=== PATIENT | female | born 1980 | race Two or more races ===

== ENCOUNTER 2024-03-11 10:54 | Emergency (ER) | payer MEDICAID, SELFPAY ==
[2024-03-11 11:05] VITALS: BMI 29.0
[2024-03-11 11:06] VITALS: BP 185/114; PULSE 110; RESP 25; TEMP 36.5; O2SAT 95
--- NOTE | 2024-03-11 11:26 | PD.EDRME ---
Rapid Medical Screening Exam RME Arrival date/time: 03/11/24 10:54 44-year-old female presents emergency department complaint of nausea vomiting abdominal pain patient reports history of gastroparesis Chief Complaint: Abdominal Pain Vital signs: Vital Signs Temperature 97.7 F 03/11/24 11:06 Pulse Rate 110 H 03/11/24 11:06 Respiratory Rate 25 H 03/11/24 11:06 Blood Pressure 185/114 H 03/11/24 11:06 Pulse Oximetry (%) 95 03/11/24 11:06 Oxygen Delivery Method Room Air 03/11/24 11:06
[2024-03-11] MEDS: METOCLOPRAMIDE INJ 5 MG/ML VIAL 2 ML 10 MG IM (11:29)
[2024-03-11 12:49] LABS: Basophils % (Auto) 0 % (0-2.5); Eosinophils # (Auto) 0.1 Thou/mm3 (0.0-0.5); Eosinophils % (Auto) 1 % (0-10); Hematocrit 31.3 % (36.0-46.0); Hemoglobin 10.6 g/dL (12.0-16.0); Immature Granulocytes % (Auto) 0 % (0-0); Immature Granulocytes Auto 0.04 Thou/mm3 (0.00-0.00); Lymphocytes # (Auto) 1.1 Thou/mm3 (1.0-4.8); Lymphocytes % (Auto) 12 % (10-50); Mean Corpuscular HGB Conc 33.9 g/dl (31.0-37.0); Mean Corpuscular Hemoglobin 25.7 pg (25.0-35.0); Mean Corpuscular Volume 76 fL (80-100); Monocytes # (Auto) 0.5 Thou/mm3 (0.0-0.8); Monocytes % (Auto) 5 % (0-12); Neutrophils # (Auto) 7.7 Thou/mm3 (1.8-7.7); Neutrophils % (Auto) 82 % (37-80); Nucleated Red Blood Cell % 0 /100 WBC (0); Platelet Count 301 Thou/mm3 (140-440); RDW Standard Deviation 38.5 fL (36.4-46.3); Red Blood Count 4.12 Miln/mm3 (4.00-5.20); White Blood Count 9.4 Thou/mm3 (3.6-11.0)
[2024-03-11 13:16] LABS: Alanine Aminotransferase 21 U/L (10-49); Alkaline Phosphatase 235 U/L (46-116); Anion Gap 10 (7-16); Aspartate Amino Transferase 19 U/L (0-34); BUN/Creatinine Ratio 13 Ratio (12-20); Bilirubin,Total 0.3 mg/dL (0.3-1.2); Blood Urea Nitrogen 26 mg/dL (9-23); Calcium 9.6 mg/dL (8.3-10.6); Calcium (Corrected) 9.6 mg/dL (8.5-10.1); Carbon Dioxide 22.6 mMol/L (20.0-31.0); Chloride 98 mMol/L (98-107); Estimated Creatinine Clearance 40.8 mL/min (>60); Globulin 4.2 gm/dL (2.3-3.5); Glucose 202 mg/dL (74-106); Lipase 70 U/L (12-53); Osmolality,Calculated 273 (275-295); Potassium 5.2 mMol/L (3.4-5.1); Sodium 131 mMol/L (136-145); Total Protein 8.2 gm/dL (5.7-8.2); eGFR 31 See Note
--- NOTE | 2024-03-11 15:47 | PC.NURSE ---
CALLED PT NO ANSWER
--- NOTE | 2024-03-11 16:05 | PC.NURSE ---
CALLED FROM [facility] AND NO ANSWER. PT NOT FOUND INSODE THE E.D. OR OUTSIDE
== END 2024-03-11 16:08 | disposition left against medical advice (07) ==
LOC: SERX 11:39
PROVIDERS: Nurse Practitioner Primary Care; Emergency Provider Emergency Medicine
DX: R10.9 Unspecified abdominal pain (principal); Z53.29 Procedure and treatment not carried out because of patient's decision for other reasons
CPT/HCPCS: 36415; 80053; 80307; 81001; 81025; 83690; 85025; 99281; J2765

== ENCOUNTER 2024-04-01 09:26 | Emergency (ER) | payer MEDICAID, SELFPAY ==
[2024-04-01] VITALS (8 sets, daily range): BP systolic 103–207; BP diastolic 69–130; PULSE 75–79; RESP 17–20; TEMP 36.3–36.7; O2SAT 95–100; BMI 26.2
--- NOTE | 2024-04-01 10:00 | PD.EDRME ---
Rapid Medical Screening Exam RME Arrival date/time: 04/01/24 09:26 44-year-old female presents the emergency department complains of nausea vomiting and abdominal pain patient ports history of gastroparesis hypertension and diabetes Chief Complaint: Nausea/Vomiting/Diarrhea Time Seen by Provider: 04/01/24 09:27 Vital signs: Vital Signs Temperature 97.6 F 04/01/24 09:42 Pulse Rate 75 04/01/24 09:42 Respiratory Rate 20 04/01/24 09:42 Blood Pressure 150/96 H 04/01/24 09:42 Pulse Oximetry (%) 95 04/01/24 09:42 Oxygen Delivery Method Room Air 04/01/24 09:42
[2024-04-01 10:31] LABS: Collection Type, Urine Clean Catch; RBC,Urine 0 /hpf (0-3); Squamous Epithelial Cell,Urine 0 /hpf (0-5); WBC,Urine 0 /hpf (0-5)
[2024-04-01 10:33] LABS: Basophils % (Auto) 0 % (0-2.5); Eosinophils # (Auto) 0.1 Thou/mm3 (0.0-0.5); Eosinophils % (Auto) 1 % (0-10); Hemoglobin 13.5 g/dL (12.0-16.0); Immature Granulocytes % (Auto) 1 % (0-0); Immature Granulocytes Auto 0.04 Thou/mm3 (0.00-0.00); Lymphocytes # (Auto) 1.7 Thou/mm3 (1.0-4.8); Lymphocytes % (Auto) 23 % (10-50); Mean Corpuscular HGB Conc 32.9 g/dl (31.0-37.0); Mean Corpuscular Hemoglobin 26.4 pg (25.0-35.0); Mean Corpuscular Volume 80 fL (80-100); Monocytes # (Auto) 0.5 Thou/mm3 (0.0-0.8); Monocytes % (Auto) 6 % (0-12); Neutrophils % (Auto) 68 % (37-80); Nucleated Red Blood Cell % 0 /100 WBC (0); Platelet Count 184 Thou/mm3 (140-440); RDW Standard Deviation 44.5 fL (36.4-46.3); Red Blood Count 5.11 Miln/mm3 (4.00-5.20); White Blood Count 7.3 Thou/mm3 (3.6-11.0)
[2024-04-01 10:36] LABS: HCG Qualitative,Urine Negative
[2024-04-01 10:48] LABS: Amphetamine/Methamp Scrn,U Positive (Negative); Barbiturate Screen,Urine Negative (Negative); Benzodiazepines Screen,Urine Negative (Negative); Benzoylecgonine Screen, Ur Negative (Negative); Fentanyl Screen,Urine Negative (Negative); Opiate Screen,Urine Negative (Negative); THC Screen,Urine Positive (Negative)
[2024-04-01 10:49] LABS: Bilirubin,Urine Negative (Negative); Blood,Urine Trace (Negative); Clarity,Urine Clear (Clear/Hazy); Color,Urine Lt-Yellow (Lt Yel-Yel); Glucose, Urine 3+ (Negative); Ketones,Urine Negative (Negative); Leukocyte Esterase,Urine Positive (Negative); Nitrite,Urine Negative (Negative); Protein,Urine 3+ (Neg - Trace); Specific Gravity,Urine 1.017 (1.001-1.035); Urobilinogen,Urine Negative mg/dL (0.0-1.0)
--- NOTE | 2024-04-01 10:50 | PC.NURSE ---
DR. ORTIZ AT BEDSIDE ASSESSING PT.
[2024-04-01 10:51] LABS: Culture Indicated,Urine Yes
[2024-04-01] MEDS: ONDANSETRON INJ 2 MG/ML INJ 2 ML 4 MG IV (10:52)
[2024-04-01] MEDS: MORPHINE SULF INJ 10 MG/ML VIAL 2 MG IVP (10:59)
--- NOTE | 2024-04-01 10:59 | XR_ITS ---
Examination: CT abdomen and pelvis without contrast. Coronal 3-D reconstructions. Sagittal 2-D reconstructions. Date and time of exam:April 01, 2024 at 1231 hours INDICATIONS: Severe abdominal pain with nausea vomiting today CTDI: vol (mGy): 9.07 DLP: (mGycm): 573 Technique: Axial images of the abdomen have been obtained, 3 mm slice thickness Intravenous contrast material has not been administered. Low dose protocols were performed. One or more of the following dose reduction techniques were used; automated exposure control, adjustment of the mA and/or KV according to patient size, use of iterative reconstruction technique. Findings: No focal liver or splenic lesions Absent gallbladder No pancreatic mass Significant perinephric stranding, atrophic left kidney No renal or ureteral calculi, no hydronephrosis Aorta normal size No pericecal inflammatory change No bowel obstruction Scattered colonic diverticulosis Retroverted atrophic uterus No adnexal mass Urinary bladder wall thickening up to 8 mm Advanced degenerative disc disease L5-S1 IMPRESSION: Prominent perinephric stranding, consider urinary tract infection, nephritis No CT findings of appendicitis bowel obstruction or diverticulitis Cystitis pattern
[2024-04-01] MEDS: LABETALOL INJ 5 MG/ML VIAL 20 ML 10 MG IVP ×2 (11:00→12:23)
--- NOTE | 2024-04-01 11:04 | EDNOTE_ITS ---
ED General RME/HPI General Chief complaint: Nausea/Vomiting/Diarrhea Stated complaint: BODY ACHES, GASTROPERESIS FLARE UP Time Seen by Provider: 04/01/24 09:27 Arrival date/time: 04/01/24 09:26 RME / HPI RME / HPI narrative: KILLIANhibrittany complaint: 04/01/24 09:26 44-year-old female presents the emergency department complains of nausea vomiting and abdominal pain patient ports history of gastroparesis hypertension and diabetes HPI: Patient is a 44-year-old female with past medical history of type II IDDM, severe gastroparesis, essential hypertension, anxiety/depression, CKD stage III and substance use disorder, who presented to the ED with worsening abdominal pain, with associated nausea and vomiting x 5 episodes, as well as semisolid diarrhea x 4 episodes since last night. She also complains of having subjective fevers and chills at home. She decided to come to the ED due to worsening abdominal pain, she describes the pain as dull and achy and diffuse, not localized. Her vomitus and stools were nonbloody, nonbilious. She has never experienced the symptoms in the past. She does have an appetite, and endorses previously smoking marijuana, and now consuming edibles to maintain her appetite. She has significant history of gastroparesis, with multiple hospitalizations for the same. She was diagnosed by colonoscopy/biopsy by die keeper Dr. Arrington > 2 years ago. Patient was previously also on Ozempic which she worsened her GI symptoms, and was taken off of it about a year ago. Medication list: Lisinopril 40 mg daily Insulin LA only Metoclopramide for gastroparesis Seroquel at bedtime for anxiety/depression Allergies: Walnuts?angioedema Social history: Tobacco?Use:?Denies ETOH?Use:?Denies Drug?Note:?Endorses smoking marijuana previously, but however has not transitioned to oral edibles to help with appetite Social?History?Note:?Lives?with?home, independent ADLs Family history: Denies any family history of sudden cardiac , stroke or cancers. L Related Data Home Medications ?Medication ?Instructions ?Recorded ?Confirmed lisinopril 20 mg tablet 20 mg PO QDAY 07/20/17 09/19/19 metformin 1,000 mg tablet 1,000 mg PO BID 07/20/17 09/19/19 quetiapine 25 mg tablet (Seroquel) 25 mg PO TID 07/20/17 09/19/19 Previous Rx's ?Medication ?Instructions ?Recorded ondansetron HCl 4 mg tablet 4 mg PO Q8H #20 tabs 09/20/19 (Zofran) ciprofloxacin HCl 500 mg tablet 500 mg PO BID 6 days #12 tabs 04/01/24 (Cipro) metoclopramide HCl 10 mg tablet 10 mg PO BID PRN nausea and 04/01/24 vomiting #30 tabs Allergies Allergy/AdvReac Type Severity Reaction Status Date / Time walnut Allergy Severe Swelling Verified 04/01/24 09:36 of Lip/Tongue/Throat Review of Systems Review of Systems Narrative Review of Systems: GENERAL: fevers/chills HEENT: Denies headache or visual/hearing changes. Denies nasal discharge. NEURO: Denies unusual weakness or difficulty speaking. CARDIO: Denies chest pain or palpitations. PULM: Denies SOB, coughing, or wheezing. GI: diffuse abdominal pain, N/V x5 episodes, diarrhea x4 episodes. URO: Denies burning/itching/pain/urinary changes. PLY CUTTER: Denies menstrual changes, hot flashes. MSK/EXT/SKIN: Denies joint/skeletal/muscle pain, issues/changes in upper or lower extremities, itchiness, or superficial pain. PSYCH: Cooperative, pleasant mood & affect. The rest of the review of systems is otherwise negative. ED Exam Narrative Physical exam: Constitutional Alert, oriented x4, nauseous HEENT Vision grossly intact. Patent nares. Trachea midline. Respiratory Chest normal on inspection and clear to auscultation bilaterally. Cardiovascular S1 and S2 audible, RRR. No murmurs or carotid bruit. No gross JVD. Abdominal Soft, diffusely tender to palpation in all quadrants. BS + Genitourinary No bladder tenderness, no flank pain. Normal to palpation. Musculoskeletal Extremities tone within normal limits. No LE edema. Neurological CN II - XII grossly intact. Extremity motor and sensation grossly intact. Skin Warm, dry and intact. No apparent lesions. Psychiatric Patient has a good affect, is cooperative. Course Quality Measures none Orders Category Date Time Status CT abdomen pelvis wo con Stat Exams 04/01/24 10:59 Completed CBC Stat Lab 04/01/24 10:13 Completed Comprehensive Metabolic Panel Stat Lab 04/01/24 11:20 Completed Drug Screen,Urine Stat Lab 04/01/24 10:24 Completed HCG Qualitative,Urine Stat Lab 04/01/24 10:24 Completed Lipase Stat Lab 04/01/24 11:20 Completed UA, C/S IF [Urinalysis, C/S if Indicated] Stat Lab 04/01/24 10:24 Completed Urine Culture Stat Lab 04/01/24 10:24 Received Labetalol IV [Trandate IV] Med 04/01/24 10:55 Discontinued 10 mg IVP X1 ONE Labetalol IV [Trandate IV] Med 04/01/24 11:32 Discontinued 10 mg IVP X1 ONE Lisinopril [Prinivil] Med 04/01/24 14:01 Discontinued 40 mg PO X1 ONE Morphine Inj Med 04/01/24 10:55 Discontinued 2 mg IVP X1 ONE Ondansetron Inj [Zofran Inj] Med 04/01/24 09:59 Discontinued 4 mg IV X1 ONE Sodium Chloride 0.9% 1000 ml [Ns] 1,000 ml Med 04/01/24 09:59 Discontinued IV 999 mls/hr amLODIPine BESYLATE [Norvasc] Med 04/01/24 14:01 Discontinued 10 mg PO X1 ONE Vital Signs Vital signs: Vital Signs Temperature 97.6 F 04/01/24 09:42 Pulse Rate 75 04/01/24 09:42 Respiratory Rate 20 04/01/24 09:42 Blood Pressure 150/96 H 04/01/24 09:42 Pulse Oximetry (%) 95 04/01/24 09:42 Oxygen Delivery Method Room Air 04/01/24 09:42 [facility] Patient data External records reviewed:: [facility] previous records and None Clinical information provided by:: patient Social determinants that could affect healthcare access:: substance use Patient has the following chronic illnesses:: type II IDDM, severe gastroparesis, essential hypertension, anxiety/depression, CKD stage III and substance use disorder How is presenting disease/condition affected by chronic disease/condition?: e xacerbated by Evaluation data The following diagnostics were reviewed and interpreted by me:: lab results, radiology exam(s) and EKG tracing(s) Lab and/or radiology exams considered but not ordered:: GB US Interpretation Summary: Patient is a 44-year-old female who presented with diffuse abdominal pain, episodes of vomiting and 4 episodes of diarrhea, with subjective fevers at home. She was found to have hypertensive urgency in the ER, with systolic BP > 200. She was given labetalol 10 mg x 2, morphine 2 mg x 1 for pain and Zofran 4 mg x 1 for nausea. Diagnostics: CT abdomen pelvis was negative for any acute findings. Patient was noted to have some areas of colonic diverticulosis, with cystitis pattern perinephric stranding consistent with UTI. Urinalysis negative at this time, sterile pyuria. Patient just completed a 5- day course of Keflex for UTI. Likely viral gastroenteritis, now resolved. No documented episodes of vomiting or diarrhea in ER. Pain completely resolved and CT imaging negative for any findings. Medications Medications considered but not ordered:: Dilaudid Medication administrations:: Medication Administration History Discontinued Medications Amlodipine Besylate (Amlodipine Besylate 5 Mg Tablet) 10 mg PO X1 ONE Stop: 04/01/24 14:02 Sodium Chloride (Ns) 1,000 mls @ 999 mls/hr IV .Q1H1M ONE Stop: 04/01/24 10:59 Last Admin: 04/01/24 10:54 Dose: Not Given Documented By: MAGNUS Non-Admin Reason: Cancelled by Provider Labetalol HCl (Labetalol Inj 5 Mg/Ml Vial 20 Ml) 10 mg IVP X1 ONE Stop: 04/01/24 10:56 Last Admin: 04/01/24 11:00 Dose: 10 mg Documented By: Labetalol HCl (Labetalol Inj 5 Mg/Ml Vial 20 Ml) 10 mg IVP X1 ONE Stop: 04/01/24 11:33 Last Admin: 04/01/24 12:23 Dose: 10 mg Documented By: Lisinopril (Lisinopril 20 Mg Tablet) 40 mg PO X1 ONE Stop: 04/01/24 14:02 Morphine Sulfate (Morphine Sulf Inj 10 Mg/Ml Vial) 2 mg IVP X1 ONE Stop: 04/01/24 10:56 Last Admin: 04/01/24 10:59 Dose: 2 mg Documented By: MAGNUS Ondansetron HCl (Ondansetron Inj 2 Mg/Ml Inj 2 Ml) 4 mg IV X1 ONE; Protocol Stop: 04/01/24 10:00 Last Admin: 04/01/24 10:52 Dose: 4 mg Documented By: MAGNUS Continue Consultations Consultation(s) initiated? (list below): No Consultation #1 (Physician, Specialty, Details): None Diagnosis Differential Diagnosis ED Complaint MDM: Diverticulitis, pancreatitis Most likely diagnosis given after review of the tests above:: Gastroenteritis - resolved Admission Indicated Admission indicated?: not indicated Explain why admission is indicated or not indicated:: Likely viral gastroenteritis, now resolved. No documented episodes of vomiting or diarrhea in ER. Pain completely resolved and CT imaging negative for any findings. Admission Request Was there a request for admission?: No Disposition Plan Disposition Plan: Discharge Discharge Attestation Discharge Attestation: The patient and all family members were given an opportunity to ask questions and understood the discharge instructions. Discharge instructions specifically effects, indications for sooner follow up or return to the emergency department, and the expected course of current diagnosis. Patient condition: Stable Medical Decision Making MDM Narrative MDM Narrative: Patient is a 44-year-old female who presented with diffuse abdominal pain, episodes of vomiting and 4 episodes of diarrhea, with subjective fevers at home. She was found to have hypertensive urgency in the ER, with systolic BP > 200. She was given labetalol 10 mg x 2, morphine 2 mg x 1 for pain and Zofran 4 mg x 1 for nausea. Diagnostics: CT abdomen pelvis was negative for any acute findings. Patient was noted to have some areas of colonic diverticulosis, with cystitis pattern perinephric stranding consistent with UTI. Urinalysis negative at this time, sterile pyuria. Patient just completed a 5- day course of Keflex for UTI. Likely viral gastroenteritis, now resolved. No documented episodes of vomiting or diarrhea in ER. Pain completely resolved and CT imaging negative for any findings. Discharge plan: Will increase dose of metoclopramide from 5 mg to 10 mg daily for nausea and gastroparesis Will discharge with ciprofloxacin x 5 days more Clear instructions to return to ED if symptoms worsen Follow-up with PCP within 1 week Plan of care discussed with attending Dr Kidd - Kwasi Barry M.D. PGY2 Differential Diagnosis Differential Diagnosis: Diverticulitis, pancreatitis Lab Data 04/01/24 10:13 04/01/24 11:20 Labs: Lab Results 04/01/24 04/01/24 04/01/24 Range/Units 10:13 10:24 11:20 WBC 7.3 (3.6-11.0) Thou/mm3 RBC 5.11 (4.00-5.20) Miln/mm3 Hgb 13.5 (12.0-16.0) g/dL Hct 41.0 (36.0-46.0) % MCV 80 (80-100) fL MCH 26.4 (25.0-35.0) pg MCHC 32.9 (31.0-37.0) g/dl RDW Std Deviation 44.5 (36.4-46.3) fL Plt Count 184 D (140-440) Thou/mm3 Neut % (Auto) 68 (37-80) % Lymph % (Auto) 23 (10-50) % [place] % (Auto) 6 (0-12) % Eos % (Auto) 1 (0-10) % Baso % (Auto) 0 (0-2.5) % Neut # (Auto) 5.0 (1.8-7.7) Thou/mm3 Lymph # (Auto) 1.7 (1.0-4.8) Thou/mm3 [place] # (Auto) 0.5 (0.0-0.8) Thou/mm3 Eos # (Auto) 0.1 (0.0-0.5) Thou/mm3 Baso # (Auto) 0.0 (0.0-0.2) Thou/mm3 Immature Gran # (Auto) 0.04 H (0.00-0.00) Thou/mm3 Absolute Nucleated RBC 0.00 (0.00-0.00) Thou/mm3 Immature Gran % 1 H (0-0) % Nucleated RBC % 0 (0) /100 WBC Sodium 133 L (136-145) mMol/L Potassium 5.5 H (3.4-5.1) mMol/L Chloride 102 (98-107) mMol/L Carbon Dioxide 26.4 (20.0-31.0) mMol/L Anion Gap 5 L (7-16) BUN 35 H (9-23) mg/dL Creatinine 2.0 H (0.6-1.3) mg/dL Estim Creat Clear Calc 38.9 L (>60) mL/min eGFR 31 L (60 - ) See Note BUN/Creatinine Ratio 18 (12-20) Ratio Glucose 207 H (74-106) mg/dL Calculated Osmolality 280 (275-295) Calcium 9.9 (8.3-10.6) mg/dL Corrected Calcium 9.9 (8.5-10.1) mg/dL Total Bilirubin 0.2 L (0.3-1.2) mg/dL AST 29 (0-34) U/L ALT 17 (10-49) U/L Alkaline Phosphatase 167 H (46-116) U/L Total Protein 8.3 H (5.7-8.2) gm/dL Albumin 4.1 (3.5-5.0) gm/dL Globulin 4.2 H (2.3-3.5) gm/dL Albumin/Globulin Ratio 1.0 L (1.2-2.2) Lipase 113 H (12-53) U/L Ur Collection Type Clean Catch Urine Color Lt-Yellow (Lt Yel-Yel) Urine Clarity Clear (Clear/Hazy) Urine pH 7.0 (5.0-7.0) Ur Specific [place] 1.017 (1.001-1.035) Urine Protein 3+ A (Neg - Trace) Urine Glucose (UA) 3+ A (Negative) Urine Ketones Negative (Negative) Urine Blood Trace (Negative) Urine Nitrite Negative (Negative) Urine Bilirubin Negative (Negative) Urine Urobilinogen (Auto) Negative (0.0-1.0) mg/dL Ur Leukocyte Esterase Positive (Negative) Urine RBC 0 (0-3) /hpf Urine WBC 0 (0-5) /hpf Ur Squamous Epith Cells 0 (0-5) /hpf Urine Bacteria None (None) Ur Culture Indicated? Yes Urine HCG, Qual Negative Urine Opiates Screen Negative (Negative) Urine Fentanyl Screen Negative (Negative) Ur Barbiturates Screen Negative (Negative) U Amphetamin/Meth Scrn Positive A (Negative) U Benzodiazepines Scrn Negative (Negative) U Cocaine Metab Screen Negative (Negative) U Marijuana (THC) Screen Positive A (Negative) Discharge Plan Plan Patient Disposition: HOME (Self Care) Prescriptions/Referrals Prescriptions/Med Rec: New ciprofloxacin HCl [Cipro] 500 mg tablet 500 mg PO BID 6 Days Qty: 12 0RF metoclopramide HCl 10 mg tablet 10 mg PO BID PRN (Reason: nausea and vomiting) Qty: 30 0RF No Action quetiapine [Seroquel] 25 mg Tablet 25 mg PO TID lisinopril 20 mg Tablet 20 mg PO QDAY metformin 1,000 mg Tablet 1,000 mg PO BID ondansetron HCl [Zofran] 4 mg tablet 4 mg PO Q8H Qty: 20 0RF Referrals: Irma Ponce PA-C [Primary Care Provider] - In 1 week Problem List Clinical Impression: Urinary tract infectious disease, Gastroenteritis Patient/Caregiver Discharge Instructions Other Activity Instructions:: Discharge plan: Will increase dose of metoclopramide from 5 mg to 10 mg daily for nausea and gastroparesis Will discharge with ciprofloxacin x 5 days more Clear instructions to return to ED if symptoms worsen Follow-up with PCP within 1 week Print Language: Tunisian Stand Alone Forms: Emily Award Info., Patient Portal Info Letter
[2024-04-01 11:50] LABS: Alanine Aminotransferase 17 U/L (10-49); Albumin, Serum 4.1 gm/dL (3.5-5.0); Alkaline Phosphatase 167 U/L (46-116); Anion Gap 5 (7-16); Aspartate Amino Transferase 29 U/L (0-34); BUN/Creatinine Ratio 18 Ratio (12-20); Bilirubin,Total 0.2 mg/dL (0.3-1.2); Blood Urea Nitrogen 35 mg/dL (9-23); Calcium 9.9 mg/dL (8.3-10.6); Calcium (Corrected) 9.9 mg/dL (8.5-10.1); Carbon Dioxide 26.4 mMol/L (20.0-31.0); Chloride 102 mMol/L (98-107); Estimated Creatinine Clearance 38.9 mL/min (>60); Globulin 4.2 gm/dL (2.3-3.5); Glucose 207 mg/dL (74-106); Lipase 113 U/L (12-53); Osmolality,Calculated 280 (275-295); Potassium 5.5 mMol/L (3.4-5.1); Sodium 133 mMol/L (136-145); Total Protein 8.3 gm/dL (5.7-8.2); eGFR 31 See Note
== END 2024-04-01 14:38 | disposition home or self-care (01) ==
PROVIDERS: Nurse Practitioner Primary Care; Emergency Provider Emergency Medicine; PCP Physician Assistant
DX: K52.9 Noninfective gastroenteritis and colitis, unspecified (principal); N39.0 Urinary tract infection, site not specified; E11.43 Type 2 diabetes mellitus with diabetic autonomic (poly)neuropathy; K31.84 Gastroparesis; I12.9 Hypertensive chronic kidney disease with stage 1 through stage 4 chronic kidney disease, or unspecified chronic kidney disease; N18.30 Chronic kidney disease, stage 3 unspecified; E11.22 Type 2 diabetes mellitus with diabetic chronic kidney disease
CPT/HCPCS: 36415; 74176; 80053; 80307; 81001; 81025; 83690; 85025; 87077; 87086; 87186; 96374; 96375; 96376; 99284; J2270; J2405; J3490; J1920

== ENCOUNTER 2024-05-22 15:54 | Inpatient (IN) | payer MEDICAID, SELFPAY ==
--- NOTE | 2024-05-22 16:38 | XR_ITS ---
Examination: CT abdomen and pelvis without contrast. Coronal 3-D reconstructions. Sagittal 2-D reconstructions. Date and time of exam:May 22, 2024 at 1848 hours Comparison April 01, 2024 INDICATIONS: Severe pelvic pain today CTDI: vol (mGy): 10.9 DLP: (mGycm): 726 Technique: Axial images of the abdomen have been obtained, 3 mm slice thickness Intravenous contrast material has not been administered. Low dose protocols were performed. One or more of the following dose reduction techniques were used; automated exposure control, adjustment of the mA and/or KV according to patient size, use of iterative reconstruction technique. Findings: No focal liver or splenic lesion Absent gallbladder No extra hepatic biliary tract dilatation No pancreatic mass Atrophic significantly scarred left kidney Prominent bilateral perinephric stranding Multiple bilateral 1 mm calculi No hydronephrosis or ureteral calculi No pericecal inflammatory change No bowel obstruction No diverticulitis No uterine mass Multiple air densities in the urinary bladder, marked abnormal thickening of the urinary bladder up to 15 mm Advanced degenerative disc disease L5-S1 IMPRESSION: Significantly scarred left kidney Very prominent bilateral perinephric stranding, consistent with bilateral acute pyelonephritis Tiny bilateral nonobstructing renal calculi 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
--- NOTE | 2024-05-22 16:38 | PD.EDRME ---
Rapid Medical Screening Exam RME Arrival date/time: 05/22/24 15:54 44-year-old female with a history of type 2 diabetes, hypertension, chronic kidney disease, presents to the emergency room with right-sided flank pain that radiates down to the right lower quadrant that began at 4 AM this morning. Patient denies any vomiting. Chief Complaint: Abdominal Pain Time Seen by Provider: 05/22/24 16:21 Vital signs reviewed by provider: Yes
[2024-05-22 16:44] VITALS: BP 121/82; PULSE 112; RESP 18; TEMP 37; O2SAT 98; BMI 28.1
[2024-05-22] MEDS: HYDROcodone/APAP 5/325 TABLET 1 TAB PO (16:46)
[2024-05-22] MEDS: ONDANSETRON ODT 4 MG TABRAP PO (16:46)
[2024-05-22 17:27] LABS: Collection Type, Urine Clean Catch
[2024-05-22 17:31] LABS: Basophils % (Auto) 0 % (0-2.5); Eosinophils # (Auto) 0.2 Thou/mm3 (0.0-0.5); Eosinophils % (Auto) 1 % (0-10); Hematocrit 31.2 % (36.0-46.0); Hemoglobin 10.4 g/dL (12.0-16.0); Immature Granulocytes % (Auto) 1 % (0-0); Immature Granulocytes Auto 0.23 Thou/mm3 (0.00-0.00); Lymphocytes # (Auto) 1.5 Thou/mm3 (1.0-4.8); Lymphocytes % (Auto) 7 % (10-50); Mean Corpuscular HGB Conc 33.3 g/dl (31.0-37.0); Mean Corpuscular Hemoglobin 26.3 pg (25.0-35.0); Mean Corpuscular Volume 79 fL (80-100); Monocytes # (Auto) 0.7 Thou/mm3 (0.0-0.8); Monocytes % (Auto) 3 % (0-12); Neutrophils # (Auto) 18.7 Thou/mm3 (1.8-7.7); Neutrophils % (Auto) 88 % (37-80); Nucleated Red Blood Cell % 0 /100 WBC (0); Platelet Count 312 Thou/mm3 (140-440); RDW Standard Deviation 39.4 fL (36.4-46.3); Red Blood Count 3.95 Miln/mm3 (4.00-5.20); White Blood Count 21.4 Thou/mm3 (3.6-11.0)
[2024-05-22 17:38] LABS: HCG Qualitative,Urine Negative
[2024-05-22 17:53] LABS: Bacteria,Urine 3+; Bilirubin,Urine Negative (Negative); Blood,Urine 1+ (Negative); Clarity,Urine Turbid (Clear/Hazy); Color,Urine Lt-Yellow (Lt Yel-Yel); Glucose, Urine 3+ (Negative); Ketones,Urine Negative (Negative); Leukocyte Esterase,Urine Positive (Negative); Nitrite,Urine Negative (Negative); Protein,Urine 3+ (Neg - Trace); RBC,Urine 6 /hpf (0-3); Specific Gravity,Urine 1.017 (1.001-1.035); Squamous Epithelial Cell,Urine 7 /hpf (0-5); Urobilinogen,Urine Negative mg/dL (0.0-1.0); WBC,Urine 174 /hpf (0-5)
[2024-05-22 18:04] LABS: Alanine Aminotransferase 24 U/L (10-49); Albumin, Serum 4.1 gm/dL (3.5-5.0); Albumin/Globulin Ratio 0.9 (1.2-2.2); Alkaline Phosphatase 249 U/L (46-116); Anion Gap 9 (7-16); Aspartate Amino Transferase 26 U/L (0-34); BUN/Creatinine Ratio 16 Ratio (12-20); Bilirubin,Total 0.3 mg/dL (0.3-1.2); Blood Urea Nitrogen 42 mg/dL (9-23); Calcium 9.5 mg/dL (8.3-10.6); Calcium (Corrected) 9.5 mg/dL (8.5-10.1); Carbon Dioxide 21.4 mMol/L (20.0-31.0); Chloride 101 mMol/L (98-107); Creatinine (Component) 2.7 mg/dL (0.6-1.3); Estimated Creatinine Clearance 29.8 mL/min (>60); Globulin 4.7 gm/dL (2.3-3.5); Glucose 117 mg/dL (74-106); Lipase 75 U/L (12-53); Osmolality,Calculated 274 (275-295); Potassium 5.8 mMol/L (3.4-5.1); Sodium 131 mMol/L (136-145); Total Protein 8.8 gm/dL (5.7-8.2); eGFR 22 See Note
--- NOTE | 2024-05-22 20:43 | EKG_ITS ---
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
--- NOTE | 2024-05-22 20:47 | EDNOTE_ITS ---
ED Abdominal Pain RME/HPI General Chief Complaint: Abdominal Pain Stated complaint: REAL BAD FLANK/ABD PAIN; HX DIABETES RENAL DISEA Time seen by provider: 05/22/24 16:21 Arrival date/time: 08/11 15:54 44-year-old female with past medical history of diabetes, hypertension, Stage III chronic kidney disease, and depression presents to the emergency department complaining of right flank pain with nausea that started at 4 AM this morning. Patient denies any fever, chills, vomiting, diarrhea, or any other associated symptoms. Source: patient Mode of arrival: ambulatory Limitations: no limitations RME / HPI RME / HPI narrative: 05/22/24 15:54 44-year-old female with a history of type 2 diabetes, hypertension, chronic kidney disease, presents to the emergency room with right-sided flank pain that radiates down to the right lower quadrant that began at 4 AM this morning. Patient denies any vomiting. Related Data Home Medications ?Medication ?Instructions ?Recorded ?Confirmed lisinopril 20 mg tablet 20 mg PO QDAY 07/20/1709/18 metformin 1,000 mg tablet 1,000 mg PO BID 07/20/1705/09 quetiapine 25 mg tablet (Seroquel) 25 mg PO TID 09/19/19 Previous Rx's ?Medication ?Instructions ?Recorded ondansetron HCl 4 mg tablet 4 mg PO Q8H #20 tabs 09/19 (Zofran) metoclopramide HCl 10 mg tablet 10 mg PO BID PRN nause a and 04/01/24 vomiting #30 tabs Allergies Allergy/AdvReac Type Severity Reaction Status Date / Time walnut Allergy Severe Swelling Verified 05/22/24 15:57 of Lip/Tongue/Throat Review of Systems Review of Systems Systems Reviewed: All systems reviewed, normal except as documented Constitutional Constitutional: Denies body ache(s), Denies chills and Denies fever(s) Eyes Eyes: Denies change in vision ENT Ears, Nose, Mouth, and Throat: Denies disequilibrium, Denies dizziness, Denies sore throat and Denies vertigo Cardiovascular Cardiovascular: Denies chest pain and Denies dyspnea Respiratory Respiratory: Denies chest congestion, Denies cough and Denies dyspnea Gastrointestinal Gastrointestinal: Reports abdominal pain, Reports nausea and Denies vomiting Musculoskeletal Musculoskeletal: Denies abnormal gait, Denies arthralgias and Reports back pain (Right flank pain) Integumentary/Breasts Skin/Breast: Denies erythema, Denies rash and Denies wounds Neurologic Neurologic: Denies abnormal gait, Denies disequilibrium, Denies dizziness and Denies vertigo Past Medical History Past Medical History CARDIAC: Positive Hypertension; Negative Congestive Heart Failure RESPIRATORY: Positive Pneumonia; Negative Chronic Obstructive Pulmonary Disease (COPD) GASTROINTESTINAL: Positive Gastrointestinal Disorders (gastroperesis) GENITOURINARY: Negative Renal Disease ENDOCRINE: Positive Diabetes Mellitus Type 2; Negative Diabetes Mellitus Type 1 PSYCHO/SOCIAL: Positive Schizophrenia and Anxiety Family History FAMILY HISTORY: Negative Family Cancer Social History SMOKING STATUS: Never smoker ED Exam General Limitations: Present no limitations General appearance: Present alert and in no apparent distress Head Head exam: Present atraumatic Eye Eye exam: Present normal appearance, PERRL and EOMI ENT ENT exam: Present normal exam, normal oropharynx and mucous membranes moist Neck Neck exam: Present normal inspection, full ROM and trachea midline Chest Chest inspection: Present normal inspection and symmetric chest wall rise Respiratory Respiratory exam: Present normal lung sounds bilaterally Cardiovascular Cardiovascular exam: Present regular rate, normal rhythm and normal heart sounds Abdominal Exam Abdominal exam: Present soft and normal bowel sounds; Absent Pierce's sign or tenderness at McBurney's Point Extremities Exam Extremities exam: Present normal inspection and full ROM Back Exam Back exam: Present normal inspection, full ROM and CVA tenderness (R) Neurological Exam Neurological exam: Present alert, oriented X3 and CN II-XII intact Psychiatric Psychiatric exam: Present normal affect and normal mood Skin Skin exam: Present warm, dry, intact and normal color Course Quality Measures Possible source: genitourinary Blood cultures ordered: yes Antibiotic ordered: Yes Pertinent labs: 05/22/24 20:55 Lactic Acid 1.4 mMol/L (0.4-2.0) Procalcitonin 2.07 H ng/ml (0.0-0.49) sepsis Orders Category Date Time Status Bedside Blood Glucose Q2HX3 Care 05/22/24 21:35 Active Casting 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 Operator Automatic STAT Care 05/22/24 20:19 Active Continuous Pulse Oximetry STAT Care 05/22/24 20:19 Completed EKG (ED ONLY) *Do not use* NOW Care 05/22/24 20:43 Completed Insert IV NOW Care 05/22/24 20:19 Active Miscellaneous Nursing Order X1 Care 05/22/24 20:46 Active Strict Intake and Output Routine Care 05/22/24 20:[address] abdomen pelvis wo con Stat Exams 05/22/24 16:38 Completed EKG (ED Only) Stat Exams 05/22/24 20:43 Draft Blood Culture (Lab) Stat Lab 05/22/24 20:55 Received CBC Stat Lab 05/22/24 17:10 Completed CMP [Comprehensive Metabolic Panel] Stat Lab 05/22/24 17:10 Completed HCG Qualitative,Urine Stat Lab 05/22/24 17:05 Completed Lactic Acid [Lactate (Lactic Acid)] Stat Lab 05/22/24 20:55 Completed Lipase Stat Lab 05/22/24 17:10 Completed Procalcitonin Stat Lab 05/22/24 20:55 Completed Prothrombin Time with INR Stat Lab 05/22/24 20:55 Completed UA [Urinalysis] Stat Lab 05/22/24 17:05 Completed Urine Culture Stat Lab 05/22/24 17:05 Received Urine Culture Stat Lab 05/22/24 20:19 Ordered Dextrose 50% Syr [D50w Syringe Abboject] Med 05/22/24 21:32 Active 25 ml IV Q15MIN PRN Dextrose 50% Syr [D50w Syringe Abboject] Med 05/22/24 21:32 Active 50 ml IV Q15MIN PRN Glucagon Inj Med 05/22/24 21:32 Active 1 mg IM Q15MIN PRN HYDROcodone*/APAP 5/325 [[place] 5/325] Med 05/22/24 16:38 Discontinued 1 tab PO X1 ONE Insulin Regular Med 05/22/24 21:32 Discontinued 5 unit IV X1 ONE Morphine Inj Med 05/22/24 20:20 Discontinued 2 mg IVP X1 ONE Ondansetron Odt [Zofran Odt] Med 05/22/24 16:38 Discontinued 4 mg PO X1 ONE Sod Polystyrene Sulfon Susp [Kayexalate Susp] Med 05/22/24 21:32 Discontinued 30 gm PO X1 ONE Sodium Chloride 0.9% 1000 ml [Ns] 1,848 ml Med 05/22/24 20:19 Discontinued IV 1,848 mls/hr cefTRIAXone [Rocephin] 1,000 mg Med 05/22/24 20:20 Discontinued SODIUM CHLORIDE 0.9% (Popper) [Ns 0.9% (P)] 50 ml IV X1 Vital Signs Vital signs: Vital Signs Temperature 98.6 F 05/22/24 16:44 Pulse Rate 112 H 05/22/24 16:44 Respiratory Rate 18 05/22/24 16:44 Blood Pressure 121/82 05/22/24 16:44 Pulse Oximetry (%) 98 05/22/24 16:44 Oxygen Delivery Method Room Air 05/22/24 16:44 98% room air within normal limits Procedures -ED EKG Interpretation #1: Date of EK05/22/24 Time of EK:05 Rate: 99 Interpretation: Interpreted by me EKG Impression: No acute ST-T changes, No ectopy, No ischemic changes, Sinus tachycardia and Normal QRS Abdominal Pain MDM MDM Narrative MDM Narrative:: 44 year/old female with past medical history of diabetes, hypertension, Stage III chronic kidney disease, and depression presents to the emergency department complaining of right flank pain. CBC was remarkable for leukocytosis of 21 10/10 with nausea that started at 4 AM this morning. Patient denies any fever, chills, vomiting, diarrhea, or any other associated symptoms. CBC was remarkable for leukocytosis of 21.4, hemoglobin 10.4. CMP remarkable for hyperkalemia 5.8, elevated creatinine 2.7 previously was 2.0. Elevated lipase of 75. EKG sinus tach. Urinalysis significant bacteria, leukocytes, and WBCs. Abdomen pelvis CT scan impression as written by radiologist: Significant scar left kidney, very prominent bilateral perinephric stranding consistent with bilateral acute pyelonephritis, tiny bilateral nonobstructing renal calculi, findings most consistent with severe emphysematous cystitis. Patient meets SIRS criteria she has a white count, elevated heart rate, and source of infection. Sepsis alert was called and blood cultures were obtained before IV antibiotics. IV fluids were ordered 30 mL/kg and will instruct the nurse to give at 150 mL an hour due to patient stage III chronic kidney disease. Patient recently creatinine was 2.0 in March so patient may have acute on chronic acute kidney injury. Lactic was normal fluids were stopped. Stable blood pressure. Blood pressure is stable no need for vasopressors at this time. Consulted hospitalist for admission for IV antibiotics due to acute pyelonephritis. Hospitalist on-call Dr. Vega agrees to admit patient for IV antibiotics. Patient stable at time of admission. Patient data External records reviewed:: [facility] previous records Clinical information provided by:: patient Social determinants that could affect healthcare access:: none Patient has the following chronic illnesses:: See chart How is presenting disease/condition affected by chronic disease/condition?: exacerbated by Evaluation data The following diagnostics were reviewed and interpreted by me:: lab results, radiology exam(s) and EKG tracing(s) Lab and/or radiology exams considered but not ordered:: Ordered Interpretation Summary: Interpreted by me Medications / Prescriptions Medications or Prescriptions considered but not ordered:: Ordered Medication administrations:: Medication Administration History Dextrose (Dextrose 50%-Water Inj 50 Ml Syringe) 25 ml IV Q15MIN PRN PRN Reason: BG 50-70 responsive npo pt Stop: 06/21/24 21:31 Dextrose (Dextrose 50%-Water Inj 50 Ml Syringe) 50 ml IV Q15MIN PRN PRN Reason: BG <50 OR BG <70 & pt unresponsive Stop: 06/21/24 21:31 Glucagon (Glucagon Inj 1 Mg Vial) 1 mg IM Q15MIN PRN PRN Reason: BG <70, and no IV access Discontinued Medications Hydrocodone Bitart/Acetaminophen (Hydrocodone/Apap 5/325 Tablet) 1 tab PO X1 ONE Stop: 05/22/24 16:39 Last Admin: 05/22/24 16:46 Dose: 1 tab Documented By: OA Sodium Chloride (Ns) 1,848 mls @ 1,848 mls/hr 30 ml/kg infuse over 60 min (1848 ml) IV .Q1H ONE Stop: 05/22/24 21:18 Last Admin: 05/22/24 21:04 Dose: 150 mls/hr Documented By: KG Ceftriaxone Sodium 1,000 mg/ (Sodium Chloride) 50 mls @ 100 mls/hr IV X1 ONE Stop: 05/22/24 20:49 Last Infusion: 05/22/24 21:33 Dose: Infused Documented By: Admin: 05/22/24 21:03 Dose: 100 mls/hr Documented By: KG Insulin Human Regular (Insulin Hum Regular 1 Unit/0.01 Ml (Per Unit)) 5 unit IV X1 ONE Stop: 05/22/24 21:33 Last Admin: 05/22/24 21:54 Dose: 5 unit Documented By: KG Co-signed By: AC Morphine Sulfate (Morphine Sulf Inj 10 Mg/Ml Vial) 2 mg IVP X1 ONE Stop: 05/22/24 20:21 Last Admin: 05/22/24 21:04 Dose: 2 mg Documented By: KG Ondansetron HCl (Ondansetron Odt 4 Mg Tabrap) 4 mg PO X1 ONE; Protocol Stop: 05/22/24 16:39 Last Admin: 05/22/24 16:46 Dose: 4 mg Documented By: OA Sodium Polystyrene Sulfonate (Sod Polystyrene Sulfon Susp 15 Gm/60 Ml Btl) 30 gm PO X1 ONE Stop: 05/22/24 21:33 Last Admin: 05/22/24 21:53 Dose: 30 gm Documented By: KG Given Consultations Consultation(s) initiated? (list below): Yes Consultation #1 (Physician, Specialty, Details): Dr. Vega Diagnosis Differential diagnosis abdominal pain: calculus of kidney and pancreatitis Most likely diagnosis given after review of the tests above:: Acute pyelonephritis Admission Indicated Admission indicated?: indicated Admission Request Was there a request for admission?: Yes Admission Attestation Admission request attestation: Discussed case with [Dr. Vega ] from Hospitalist service regarding admission. Discussed patients ED course, exam findings, labs, and radiology results. The Hospitalist [agrees] to accept the patient for admission. Disposition Plan Disposition Plan: Admit Discharge Plan Plan Patient Disposition: Admit Acute Care w/in Hospital Disposition Comment: Stable Prescriptions/Referrals Prescriptions/Med Rec: No Action quetiapine [Seroquel] 25 mg Tablet 25 mg PO TID lisinopril 20 mg Tablet 20 mg PO QDAY metformin 1,000 mg Tablet 1,000 mg PO BID ondansetron HCl [Zofran] 4 mg tablet 4 mg PO Q8H Qty: 20 0RF metoclopramide HCl 10 mg tablet 10 mg PO BID PRN (Reason: nausea and vomiting) Qty: 30 0RF Referrals: Irma Ponce PA-C [Primary Care Provider] - In 1 week Problem List Clinical Impression: Acute pyelonephritis Patient/Caregiver Discharge Instructions Print Language: Afghan Stand Alone Forms: Emily Award Info., Patient Portal Info Letter PA/ZARA Supervising Physician PA/DAY LIGHT RELIEF OPERATOR Supervising Physician: Dr. Jones
[2024-05-22 21:00] VITALS: BP 148/100; PULSE 100; RESP 18; O2SAT 95
[2024-05-22] MEDS: cefTRIAXone 1,000 MG in SODIUM CHLORIDE 0.9% (Popper) 50 ML 100 MG IV (21:03)
[2024-05-22] MEDS: MORPHINE SULF INJ 10 MG/ML VIAL 2 MG IVP (21:04)
[2024-05-22] MEDS: SODIUM CHLORIDE 0.9% 1000 ML 1,848 ML 150 ML IV (21:04)
[2024-05-22 21:08] VITALS: BP 131/90; PULSE 100; PULSE 101; RESP 18; O2SAT 99
[2024-05-22 21:35] LABS: Lactate (Lactic Acid) 1.4 mMol/L (0.4-2.0)
--- NOTE | 2024-05-22 21:47 | PC.NURSE ---
Resident at the bedside speaking with pt.
[2024-05-22] MEDS: SOD POLYSTYRENE SULFON SUSP 15 GM/60 ML BTL 30 GM PO (21:53)
[2024-05-22 21:54] LABS: INR 1.1 (0.9-1.3); Prothrombin Time 11.6 Seconds (9.0-12.2)
[2024-05-22] MEDS: INSULIN HUM REGULAR 1 UNIT/0.01 ML (PER UNIT) 5 UNIT IV (21:54)
[2024-05-22 22:00] VITALS: BP 129/98; PULSE 100; RESP 20; O2SAT 99
[2024-05-22 22:03] LABS: Procalcitonin 2.07 ng/ml (0.0-0.49)
--- NOTE | 2024-05-22 22:21 | ESHP_ITS ---
<Statement entered by Mary Morris MD - 05/28/24 05:42> I reviewed above note and agree with findings and plans. I have also personally examined the patient with medicine team and went over assessment and plan with medical team including photo intern and resident physician. Documentation for date of: 05/22/24 HPI History of Present Illness History of present illness: Poonam is a 44 y/o female with PMHx of hypertension, insulin-dependent type 2 diabetes, chronic CORTEZ, diabetic gastroparesis, substance abuse, who comes in for an evaluation of vomiting and constant abdominal pain, onset 2 days ago, radiated to the back, rated 4 out of 10 with pain scale. Patient reports that vomiting had started 2 days ago in which she was vomiting all day, appeared to be green in color, no blood. Patient reports that she was awoken at 4 AM by her boyfriend, and noticed that she started to have abdominal pain that radiated to her back that was severe in nature, however the vomiting had stopped. She said she did not take any medicine to help the pain, and was recommended to go see a doctor by her mother. She says that she has never had symptoms like this before. She did say that she was recently in the ER last month for bad gastroparesis, however with her new medicine adjustments, she has not had worsening of those symptoms. She denies getting any UTIs, however had UTI last month in which she took an antibiotic for. She says that she is going to see a machine operator farmworker for her chronic kidney disease. She says that she has been having diabetes since 2005. She says she takes insulin for her diabetes. She says that she has been dealing with chronic kidney disease for a while and also diabetic gastroparesis. She denies any recent travel or sick contacts. No other complaints at this time. ED course: Patient arrived to the ED with a temperature 98.6, blood pressure 148/100, heart rate 110, saturating 95% on room air, respiratory rate of 18. She was worked up was found to have a sodium 131, calcium 5.8, BUN/creatinine of 4220 respectively, bicarb of 21, osmolarity of 274, white count of 21.4, lipase 25, hemoglobin 12.4, platelets 312, glucose of 117. With imaging she was found to have emphysematous cystitis, and tiny nonobstructing renal calculi. EKG showed normal sinus rhythm. She was given Ronco x 1, morphine 2 mg x 1, 1.8 L of fluid, Zofran x 1, Rocephin x 1. Medicine was consulted patient admitted to floors Past med history: As above Surgical history: Ovarian cyst removal, partial oophorectomy, some form of C- section or tubal ligation (unsure) Allergies: Walnuts gives angioedema Meds: Insulin, Seroquel, Reglan, Lisinopril, Hydroxyzine, Gabapentin Family Hx: Mother is on Dialysis, family hx significant for DM. No hx of CAD or Stroke per patient Social Hx: Born in [place], raised in [place]. 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 Used to drink up to 15-30 tall cans of beer for about 15 years, however does not drink anymore as she has not drink for 5 months. Meth history, however has not used meth for about 5 months. Smokes THC occasionally. Review of Systems Review of Systems Narrative Review of Systems: Constitutional: No fever, chills, fatigue, weakness, weight loss HEENT: No eye pain, vision loss, ear pain, hearing loss, dysphagia, Cardiovascular: No chest pain, palpitations, edema, pain with walking Respiratory: No cough, shortness of breath, wheezing GI: No NVD, positive abdominal pain, No constipation, blood in stool, loss of appetite, heartburn Extremities: no presence of pitting edema MSK: positive back pain, No joint pain, joint swelling Neuro: No dizziness, numbness, weakness, headaches, seizures, tremors Psych: positive anxiety, No depression Exam Vital Signs Temp Pulse Resp BP Pulse Ox O2 Del Method 98.6 F 100 20 129/98 H 99 Room Air 05/22/24 16:44 05/22/24 22:00 05/22/24 22:00 05/22/24 22:00 05/22/24 22:00 05/22/24 22:00 Narrative Exam General: AAOx3, anxious female, in mild distress, overweight HEENT: Dry mucous membranes, conjunctiva clear, EOMI, PERRLA, no front teeth Cardiovascular: S1, S2, radial pulses +2 bilat, RRR, tattoos seen and around chest Pulmonary: CTAB bilat no cough, no wheezing GI: No tenderness to light or deep palpitation, no guarding, rigidity, rebound tenderness or distension : CVA tenderness, mainly right-sided Extremities: No presence of trace or pitting edema in lower extremities bilaterally, dorsalis pedis pulses +2 bilaterally, multiple tattoos seen in lower extremities bilaterally, Neuro: AAOx3, no focal motor or sensory deficits in the UE or LE bilat Psych: Extremely anxious Results: Labs 05/22/24 17:10 05/22/24 22:19 Labs: Short CBC 05/22/24 Range/Units 17:10 WBC 21.4 H (3.6-11.0) Thou/mm3 Hgb 10.4 L (12.0-16.0) g/dL Hct 31.2 L (36.0-46.0) % Plt Count 312 (140-440) Thou/mm3 BMP 05/22/24 17:10 Sodium 131 L Potassium 5.8 H Chloride 101 Carbon Dioxide 21.4 BUN 42 H Creatinine 2.7 H Glucose 117 H Calcium 9.5 Liver Function 05/22/24 Range/Units 17:10 Total Bilirubin 0.3 (0.3-1.2) mg/dL AST 26 (0-34) U/L ALT 24 (10-49) U/L Alkaline Phosphatase 249 H (46-116) U/L Albumin 4.1 (3.5-5.0) gm/dL Urine 05/22/24 Range/Units 17:05 Urine Color Lt-Yellow (Lt Yel-Yel) Urine Clarity Turbid A (Clear/Hazy) Urine pH 6.0 (5.0-7.0) Ur Specific [place] 1.017 (1.001-1.035) Urine Protein 3+ A (Neg - Trace) Urine Glucose (UA) 3+ A (Negative) Quality Measures Quality Measures sepsis Current suspected stage: sepsis Possible source: genitourinary Blood cultures ordered: yes Antibiotic ordered: Yes Medications Home Medications and Allergies Home Medications ?Medication ?Instructions ?Recorded ?Confirmed ?Type lisinopril 20 mg tablet 20 mg PO QDAY 07/20/1705/22 History metformin 1,000 mg tablet 1,000 mg PO BID 07/20/1709/11 History quetiapine 25 mg tablet (Seroquel) 25 mg PO TID 05/23/24 History docusate sodium 100 mg capsule 100 mg PO BID 05/22/24 05/23/24 History gabapentin 400 mg capsule 400 mg PO TID 05/22/2405/23 History Allergies Allergy/AdvReac Type Severity Reaction Status Date / Time walnut Allergy Severe Swelling Verified 05/22/24 15:57 of Lip/Tongue/Throat Visit Medications Acetaminophen (Acetaminophen 325 Mg Tablet) 650 mg PO Q6H PRN PRN Reason: Fever >100 or pain 1-3 Stop: 06/21/24 22:14 Dextrose (Dextrose 50%-Water Inj 50 Ml Syringe) 25 ml IV Q15MIN PRN PRN Reason: BG 50-70 responsive npo pt Stop: 06/21/24 21:31 Dextrose (Dextrose 50%-Water Inj 50 Ml Syringe) 50 ml IV Q15MIN PRN PRN Reason: BG <50 OR BG <70 & pt unresponsive Stop: 06/21/24 21:31 Glucagon (Glucagon Inj 1 Mg Vial) 1 mg IM Q15MIN PRN PRN Reason: BG <70, and no IV access Heparin Sodium (Porcine) (Heparin Sod Inj 5000 Unit/Ml Vial) 5,000 unit SC Q12H [facility] Stop: 06/05/24 22:14 Sodium Chloride (Ns) 1,000 mls @ 75 mls/hr IV .[id number] [facility] Stop: 06/21/24 22:14 Piperacillin Sod/Tazobactam (Sod 3.375 gm/ Sodium Chloride) 50 mls @ 100 mls/hr IV Q8HR [facility] Stop: 05/29/24 22:20 Insulin Human Lispro (Insulin Lispro (Admelog) 1 Unit/0.01 Ml Unit) 0 unit SC [facility]; Protocol Stop: 06/22/24 07:29 Metoclopramide HCl (Metoclopramide 5 Mg Tablet) 10 mg PO Q6H PRN PRN Reason: NAUSEA OR VOMITING Stop: 06/21/24 22:14 Quetiapine Fumarate (Quetiapine Fumarate 25 Mg Tablet) 25 mg PO TID [facility] Stop: 06/22/24 05:59 Discontinued Medications Hydrocodone Bitart/Acetaminophen (Hydrocodone/Apap 5/325 Tablet) 1 tab PO X1 ONE Stop: 05/22/24 16:39 Last Admin: 05/22/24 16:46 Dose: 1 tab Sodium Chloride (Ns) 1,848 mls @ 1,848 mls/hr 30 ml/kg infuse over 60 min (1848 ml) IV .Q1H ONE Stop: 05/22/24 21:18 Last Infusion: 05/22/24 22:08 Dose: 0 mls/hr Ceftriaxone Sodium 1,000 mg/ (Sodium Chloride) 50 mls @ 100 mls/hr IV X1 ONE Stop: 05/22/24 20:49 Last Infusion: 05/22/24 21:33 Dose: Infused Insulin Human Regular (Insulin Hum Regular 1 Unit/0.01 Ml (Per Unit)) 5 unit IV X1 ONE Stop: 05/22/24 21:33 Last Admin: 05/22/24 21:54 Dose: 5 unit Morphine Sulfate (Morphine Sulf Inj 10 Mg/Ml Vial) 2 mg IVP X1 ONE Stop: 05/22/24 20:21 Last Admin: 05/22/24 21:04 Dose: 2 mg Ondansetron HCl (Ondansetron Odt 4 Mg Tabrap) 4 mg PO X1 ONE; Protocol Stop: 05/22/24 16:39 Last Admin: 05/22/24 16:46 Dose: 4 mg Sodium Polystyrene Sulfonate (Sod Polystyrene Sulfon Susp 15 Gm/60 Ml Btl) 30 gm PO X1 ONE Stop: 05/22/24 21:33 Last Admin: 05/22/24 21:53 Dose: 30 gm Assessment & Plan Plan Assessment Poonam is a 44 y/o female with PMHx of hypertension, insulin-dependent type 2 diabetes, chronic CORTEZ, diabetic gastroparesis, substance abuse, who is admitted for sepsis secondary to emphysematous cystitis. #Sepsis secondary to #Emphysematous cystitis #Pyelonephritis Tachycardic, white count 21 Lactate 1.4 qSOFA: 0 points 2 out of [address] abdomen pelvis shows emphysematous cystitis CT also shows some bladder wall thickening up to 15mm, concerning for possible cancer will need to see outpatient urology Sepsis due to 2/4 SIRS criteria with acute sepsis-related organ dysfunction as evidence by CARLY Given Sepsis Bolus 1.8 L Given severity of cystitis will need to be broad for antibiotic coverage Plan: ? Zosyn 3.375 mg Q8H IV ? Follow-up urine cultures ? Follow-up blood cultures ? Pain control ? Antiemetics ? Tylenol for antipyretic ? Will need to see outpatient urology for bladder thickening #Acute kidney injury on CKD stage IIIb #Asymptomatic bacteriuria #Hyperkalemia DDx: Prerenal versus ATN versus obstructive Patient's creatinine seems to be 2.0 for the past couple with however, patient's BUN and creatinine today is 47 and 2.7 ratio appears to be 17. Urine shows 174 white cells, positive bacteria, positive leukocyte esterase, however patient is not complaining of any urinary symptoms Could be nephrotoxic component or prerenal component, however patient will need some fluids and considering patient has CKD will give a gentle rate Patient does not take metformin anymore Patient's potassium 5.8, given 5 units of insulin in 30 mg Kayexalate Plan: ? NS maintenance 75 cc/hour ? Strict I's and O's ? Urine lytes and creatinine ? Follow-up renal panel #History of hypertension Plan: ? Holding home lisinopril in setting of CARLY ? Will adjust blood pressure as needed #Diabetes mellitus type II, insulin-dependent #History of diabetic gastroparesis Plan: ? Sliding scale insulin ? Hypoglycemic protocol in place ? Blood sugar checks with meals ? Reglan 10 mg every 6 hours as needed ? Resumed home gabapentin for 400 mg 3 times daily #History of CORTEZ #Polysubstance abuse Including meth and THC Also used to be heavy drinker in the past Has not drank or used meth in 5 months Plan: ? Follow-up urine drug screen ? Resumed home Seroquel 25 mg 3 times daily ? Hydroxyzine 50 mg every 6 hours as needed #Health Maintenance Disposition: [facility]Tele DVT prophylaxis: Heparin GI prophylaxis: None indicated at this time Diet: Renal CODE STATUS: DNR Patient seen and care discussed with my attending physician, Dr. Arturo Vega, PGY-1
[2024-05-22] MEDS: PIPER/TAZO INJ 3.375 GM in SODIUM CHLORIDE 0.9% (Popper) 50 ML IV (22:43)
[2024-05-22] MEDS: SODIUM CHLORIDE 0.9% 1000 ML 1,000 ML 75 ML IV (22:43)
[2024-05-22] MEDS: HEPARIN SOD INJ 5000 UNIT/ML VIAL SC (22:45)
[2024-05-22 22:48] LABS: Albumin, Serum 3.8 gm/dL (3.5-5.0); Anion Gap 6 (7-16); BUN/Creatinine Ratio 17 Ratio (12-20); Blood Urea Nitrogen 47 mg/dL (9-23); Calcium 8.6 mg/dL (8.3-10.6); Calcium (Corrected) 8.8 mg/dL (8.5-10.1); Carbon Dioxide 23.6 mMol/L (20.0-31.0); Chloride 104 mMol/L (98-107); Creatinine (Component) 2.8 mg/dL (0.6-1.3); Estimated Creatinine Clearance 28.8 mL/min (>60); Glucose 71 mg/dL (74-106); Osmolality,Calculated 278 (275-295); Phosphorous 3.1 mg/dL (2.4-5.1); Potassium 5.8 mMol/L (3.4-5.1); Sodium 134 mMol/L (136-145); eGFR 21 See Note
[2024-05-22 23:30] VITALS: BMI 27.6
[2024-05-22 23:56] VITALS: BP 144/99; PULSE 96; RESP 19; TEMP 35.8; O2SAT 95
[2024-05-23] VITALS (10 sets, daily range): BP systolic 134–196; BP diastolic 92–117; PULSE 91–109; RESP 12–25; TEMP 36.1–37; O2SAT 94–100; BMI 27.7
--- NOTE | 2024-05-23 00:26 | XR_ITS ---
Examination: Abdomen sonogram, Limited Date and time of exam: May 23, 2024 0157 hrs. Indications: Flank pain nausea vomiting beginning today Technique: Real-time mckenzie scale transabdominal sonographic images of the upper abdomen obtained. Findings: Absent gallbladder Normal common bile duct 0.2 cm Pancreatic head 3.2 cm Liver 15.8 cm fatty infiltration lobular contour no focal liver lesions Normal hepatopedal portal venous flow Patent IVC Impression: Impression: Absent gallbladder, normal common bile duct Primary hepatocellular disease fatty infiltration
[2024-05-23] MEDS: Magnesium Sulfate 4 GM Ivpb 4 GM/50 ML BAG IV (01:02)
[2024-05-23] MEDS: METOCLOPRAMIDE 5 MG TABLET 10 MG PO (02:13)
--- NOTE | 2024-05-23 02:45 | PC.NURSE ---
At 0230, pt had 1 episode of emesis and c/o 7/10 pain in abdomen, PO Reglan PRN was given, MD Zepeda made aware, MD Zepeda at bedside evaluating patient. Verbal orders via MD Zepeda given.
--- NOTE | 2024-05-23 03:09 | PRELIM_ITS ---
Ultrasound liver with Limited Doppler. May 23, 2024 at 0157 hours Clinical history: Elevated alk phos. Findings: The liver measures 15.83 cm and demonstrates nodular contour. There is increased echogenicity of the liver. The gallbladder is surgically absent.The common bile duct measures 2 mm. There is no intrahepatic biliary ductal dilatation. The main portal vein demonstrates hepatopetal flow.The inferior vena cava is patent to the extent visualized. The pancreas is unremarkable.The pancreas is unremarkable. Impression: Findings suspicious for hepatic cirrhosis with fatty infiltration. Report Electronically Signed By: Hector Galloway 05/23/2024 3:08:46 AM [EST]
[2024-05-23 04:03] LABS: Amphetamine/Methamp Scrn,U Positive (Negative); Barbiturate Screen,Urine Negative (Negative); Benzodiazepines Screen,Urine Negative (Negative); Benzoylecgonine Screen, Ur Negative (Negative); Chloride,Urine Random 35.7 mMol/L (55.0-125.0); Creatinine,Random Urine 66 mg/dL (30-125); Fentanyl Screen,Urine Negative (Negative); Opiate Screen,Urine Positive (Negative); Potassium,Urine Random 43 mMol/L (12-62); Sodium,Urine Random 35.2 mMol/L (20.0-110.0); THC Screen,Urine Positive (Negative)
[2024-05-23] MEDS: GABAPENTIN 300 MG CAPSULE PO ×3 (05:24→21:00)
[2024-05-23] MEDS: QUEtiapine FUMARATE 25 MG TABLET PO (05:24)
[2024-05-23] MEDS: HYDROmorphone INJ 2 MG/ML VIAL 0.5 MG IVP ×2 (05:26→12:32)
[2024-05-23] MEDS: PIPER/TAZO INJ 3.375 GM in SODIUM CHLORIDE 0.9% (Popper) 50 ML IV (05:33)
[2024-05-23 06:06] LABS: Basophils % (Auto) 0 % (0-2.5); Eosinophils # (Auto) 0.1 Thou/mm3 (0.0-0.5); Eosinophils % (Auto) 1 % (0-10); Hematocrit 27.7 % (36.0-46.0); Hemoglobin 9.2 g/dL (12.0-16.0); Immature Granulocytes % (Auto) 1 % (0-0); Immature Granulocytes Auto 0.14 Thou/mm3 (0.00-0.00); Lymphocytes % (Auto) 8 % (10-50); Mean Corpuscular HGB Conc 33.2 g/dl (31.0-37.0); Mean Corpuscular Hemoglobin 26.4 pg (25.0-35.0); Mean Corpuscular Volume 80 fL (80-100); Monocytes # (Auto) 0.5 Thou/mm3 (0.0-0.8); Monocytes % (Auto) 4 % (0-12); Neutrophils # (Auto) 11.3 Thou/mm3 (1.8-7.7); Neutrophils % (Auto) 87 % (37-80); Nucleated Red Blood Cell % 0 /100 WBC (0); Platelet Count 297 Thou/mm3 (140-440); RDW Standard Deviation 39.6 fL (36.4-46.3); Red Blood Count 3.48 Miln/mm3 (4.00-5.20)
[2024-05-23 06:18] LABS: Partial Thromboplastin Time 34.4 Seconds (22.0-36.0); Prothrombin Time 11.2 Seconds (9.0-12.2)
[2024-05-23 06:35] LABS: Glucose Estimated Average 209 mg/dL (80-131); Hemoglobin A1C 8.9 % Hgb (4.8-6.0)
[2024-05-23 06:44] LABS: Alanine Aminotransferase 36 U/L (10-49); Albumin, Serum 3.7 gm/dL (3.5-5.0); Albumin/Globulin Ratio 0.8 (1.2-2.2); Alkaline Phosphatase 259 U/L (46-116); Anion Gap 9 (7-16); Aspartate Amino Transferase 47 U/L (0-34); BUN/Creatinine Ratio 16 Ratio (12-20); Bilirubin,Total 0.2 mg/dL (0.3-1.2); Blood Urea Nitrogen 42 mg/dL (9-23); Calcium (Corrected) 9.2 mg/dL (8.5-10.1); Carbon Dioxide 23.2 mMol/L (20.0-31.0); Cardiac Risk Estimate 3.7 RATIO (3.7-5.6); Chloride 101 mMol/L (98-107); Cholesterol 130 mg/dL (132-200); Creatinine (Component) 2.6 mg/dL (0.6-1.3); Estimated Creatinine Clearance 30.7 mL/min (>60); Globulin 4.4 gm/dL (2.3-3.5); Glucose 151 mg/dL (74-106); HDL Cholesterol 35 mg/dL (40-60); LDL Cholesterol,Calculated 59 mg/dL (0-130); Magnesium 2.2 mg/dL (1.6-2.6); Osmolality,Calculated 279 (275-295); Phosphorous 4.9 mg/dL (2.4-5.1); Potassium 5.5 mMol/L (3.4-5.1); Sodium 133 mMol/L (136-145); Thyroid Stimulating Hormone 0.62 uIU/mL (0.55-4.78); Total Protein 8.1 gm/dL (5.7-8.2); Triglycerides 182 mg/dL (30-150); eGFR 23 See Note
[2024-05-23] MEDS: HEPARIN SOD INJ 5000 UNIT/ML VIAL SC ×2 (08:00→20:59)
--- NOTE | 2024-05-23 09:16 | PC.SS ---
Patient Poonam Bryson is a Year old female admitted for Sepsis 04/21. SS met with patient at bedside to discuss discharge plan and review demographic information. Patient reports she lives at home with her boyfriend, patient reports she does not utilize any source of DME to assist with ambulation. Patient reports her friend Vicky Bullard is her surrogate decision maker [phone]. Choice of pharmacy is [facility] in [facility]. Patient's PCP is Irma Ponce. SS inquired about patients toxicology report was positive for Methamphetamine and THC. Patient refused resources and stated she is going to stop consuming. At time of discharge patient will return home. Next of Kin: Friend,Vicky Bullard Discharge plan: Home
[2024-05-23] MEDS: PATIROMER CALCIUM 8.4 GM PACKET (NON-FORM) PO (10:11)
[2024-05-23 10:36] LABS: Albumin, Serum 3.7 gm/dL (3.5-5.0); Anion Gap 7 (7-16); BUN/Creatinine Ratio 15 Ratio (12-20); Blood Urea Nitrogen 40 mg/dL (9-23); Calcium 8.8 mg/dL (8.3-10.6); Carbon Dioxide 24.5 mMol/L (20.0-31.0); Chloride 102 mMol/L (98-107); Creatinine (Component) 2.6 mg/dL (0.6-1.3); Estimated Creatinine Clearance 30.7 mL/min (>60); Glucose 244 mg/dL (74-106); Osmolality,Calculated 284 (275-295); Phosphorous 4.2 mg/dL (2.4-5.1); Potassium 5.9 mMol/L (3.4-5.1); Sodium 133 mMol/L (136-145); eGFR 23 See Note
--- NOTE | 2024-05-23 10:44 | XR_ITS ---
Examination: Retroperitoneal ultrasound, complete Technique: Multiple high resolution grayscale images of the retroperitoneum obtained, including kidneys and bladder. Exam date and time: May 23, 2024 1309 hrs. Indications: Acute renal insufficiency on laboratory examination 2 days ago Findings: Right kidney 12.1 cm renal cortex 2.3 cm Left kidney 9.3 cm cortex 1.6 cm Moderate bilateral renal parenchymal scar formation Contracted urinary bladder Impression: Small left kidney with left renal cortical thinning Moderate bilateral renal parenchymal scar formation
--- NOTE | 2024-05-23 10:48 | EKG_ITS ---
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
--- NOTE | 2024-05-23 11:41 | ECHO_ITS ---
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 LV Ejection Fraction MOD 4C 64.2 % LV Cardiac Index MOD 4C 3174.3 cm?/min?m? LV Ejection Fraction 4C AL 65.6 % LV Cardiac Index 4C AL 3356.8 cm?/min?m? LV Ejection Fraction MOD 2C 60.2 % LV Cardiac Index MOD 2C 2271.2 cm?/min?m? LV Ejection Fraction 2C AL 62.2 % LV Cardiac Index 2C AL 2374.4 cm?/min?m? LA Volume Index 26.0 cm?/m? 16 - 28 cm?/m? Ascending Aorta Diameter 2.8 cm DOPPLER AV Peak Velocity 144.0 cm/s AV Peak Gradient 8.3 mmHg AV Mean Gradient 8.0 mmHg AV Velocity Time Integral 29.6 cm AI Peak Velocity 247.5 cm/s AI Peak Gradient 24.5 mmHg AI Pressure Half Time 373.5 ms LVOT Peak Velocity 130.0 cm/s LVOT Peak Gradient 6.8 mmHg LVOT Velocity Time Integral 33.8 cm LVOT Cardiac Index 4148.7 cm?/min?m? AV Area Cont Eq vti 2.6 cm? AV Area Cont Eq pk 2.0 cm? MV Area PHT 4.1 cm? Mitral E Point Velocity 65.6 cm/s Mitral A Point Velocity 94.9 cm/s Mitral E to A Ratio 0.7 LV E' Lateral Velocity 10.4 cm/s Mitral E to LV E' Lateral Ratio 6.3 LV E' Septal Velocity 9.0 cm/s Mitral E to LV E' Septal Ratio 7.3 TR Peak Velocity 255.0 cm/s TR Peak Gradient 26.0 mmHg PV Peak Velocity 135.0 cm/s PV Peak Gradient 7.3 mmHg RVOT Peak Velocity 114.0 cm/s FINDINGS Left Ventricle Normal left ventricular size, wall thickness, systolic function with no obvious regional wall motion abnormalities.there is grade I diastolic dysfunction of the left ventricle (impaired relaxation pattern). The left ventricular ejection fraction is normal, estimated at 60-65%. Right Ventricle The right ventricle is normal in size and systolic function. The estimated right ventricular systolic pressure, 26 mmHg. Left Atrium The left atrium is normal by two-dimensional, color flow and Doppler imaging with no structural abnormalities, no thrombus formation present. Right Atrium The right atrium is normal by two-dimensional imaging, color flow and Doppler imaging with no structural abnormalities, no thrombus formation present. Atrial Septum The interatrial septum appears normal with no evidence of a shunt. Aorta The aorta is normal by two-dimensional, color flow and Doppler interrogation. Mitral Valve Trace to mild mitral regurgitation. Mild mitral annular calcification. Aortic Valve Aortic valve sclerosis. Trace to mild aortic valve regurgitation. Tricuspid Valve There is mild tricuspid valve regurgitation. Pulmonic Valve Trivial pulmonic valve regurgitation. Vessels The pulmonary artery appears normal. The inferior vena cava pulmonary and hepatic veins appear normal. Pericardium The pericardium is normal by two-dimensional imaging. There is no significant pericardial effusion. CONCLUSIONS indication: chronic meth use LV appears normal with EF 60-65%. Diastolic Dysfunction I present. RV appears normal with RVSP 26 mmHg. Aortic sclerosis no stenosis MAC with trace MR Whit Islas (Electronically Signed) Final Date: 23 May 2024 18:19
[2024-05-23] MEDS: DEXTROSE 50%-WATER INJ 50 ML SYRINGE IV (11:56)
[2024-05-23] MEDS: CALCIUM GLUCONATE 10% INJ 1 GM/10 ML VIAL IV (11:56)
[2024-05-23] MEDS: INSULIN HUM REGULAR 1 UNIT/0.01 ML (PER UNIT) 10 UNIT IV (11:57)
[2024-05-23 12:14] LABS: Creatinine MALB Rnd Ur 39 mg/dL (30-125); Microalbumin Creat Ratio 974 mg/gCrea (<30); Microalbumin, Random Urine > 380 mg/L (0-300)
--- NOTE | 2024-05-23 12:22 | EKG_ITS ---
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
[2024-05-23] MEDS: SODIUM CHLORIDE 0.9% 1000 ML 1,000 ML 75 ML IV (12:38)
[2024-05-23 12:52] LABS: Basophils % (Auto) 0 % (0-2.5); Eosinophils # (Auto) 0.1 Thou/mm3 (0.0-0.5); Eosinophils % (Auto) 0 % (0-10); Hematocrit 25.3 % (36.0-46.0); Immature Granulocytes % (Auto) 1 % (0-0); Lymphocytes # (Auto) 1.1 Thou/mm3 (1.0-4.8); Lymphocytes % (Auto) 9 % (10-50); Mean Corpuscular HGB Conc 33.6 g/dl (31.0-37.0); Mean Corpuscular Hemoglobin 26.4 pg (25.0-35.0); Mean Corpuscular Volume 79 fL (80-100); Monocytes # (Auto) 0.7 Thou/mm3 (0.0-0.8); Monocytes % (Auto) 5 % (0-12); Neutrophils # (Auto) 11.1 Thou/mm3 (1.8-7.7); Neutrophils % (Auto) 85 % (37-80); Nucleated Red Blood Cell % 0 /100 WBC (0); Platelet Count 258 Thou/mm3 (140-440); RDW Standard Deviation 40.4 fL (36.4-46.3); Red Blood Count 3.22 Miln/mm3 (4.00-5.20); White Blood Count 13.1 Thou/mm3 (3.6-11.0)
[2024-05-23] MEDS: INSULIN LISPRO (AdmeLOG) 1 UNIT/0.01 ML UNIT SC ×2 (12:58→17:26)
[2024-05-23] MEDS: QUEtiapine FUMARATE 25 MG TABLET 50 MG PO ×2 (12:58→21:00)
[2024-05-23] MEDS: amLODIPine BESYLATE 5 MG TABLET PO (12:58)
[2024-05-23] MEDS: PIPER/TAZO 2.25 GM 2.25 GM/50 ML BAG IV ×2 (13:02→17:21)
[2024-05-23 13:13] LABS: Alanine Aminotransferase 31 U/L (10-49); Albumin, Serum 3.4 gm/dL (3.5-5.0); Albumin/Globulin Ratio 0.8 (1.2-2.2); Alkaline Phosphatase 248 U/L (46-116); Anion Gap 9 (7-16); Aspartate Amino Transferase 36 U/L (0-34); BUN/Creatinine Ratio 15 Ratio (12-20); Bilirubin,Total 0.2 mg/dL (0.3-1.2); Blood Urea Nitrogen 39 mg/dL (9-23); Calcium 9.5 mg/dL (8.3-10.6); Carbon Dioxide 22.8 mMol/L (20.0-31.0); Chloride 100 mMol/L (98-107); Creatinine (Component) 2.6 mg/dL (0.6-1.3); Estimated Creatinine Clearance 30.7 mL/min (>60); Globulin 4.1 gm/dL (2.3-3.5); Glucose 159 mg/dL (74-106); Osmolality,Calculated 276 (275-295); Potassium 4.4 mMol/L (3.4-5.1); Sodium 132 mMol/L (136-145); Total Protein 7.5 gm/dL (5.7-8.2); Troponin I < 0.002 ng/mL (0.0-0.045); eGFR 23 See Note
--- NOTE | 2024-05-23 13:13 | PD.EVENT ---
Documentation for date of: 05/23/24 Event Note Event Note: At approximately 1225, rapid response was called for the patient. Apparently, per nurse, directly after the patient received calcium gluconate for temporizing measures for hyperkalemia, she felt as if her body spasms also stating that she felt like she had no control over her muscles. She states her symptoms only lasted 1 to 2 seconds, resolving very quickly. The patient was given temporizing measures due to a potassium 5.9 noted approximately 10 AM this morning. EKG this morning at approximately 11 AM demonstrated some possible mild peaked T waves in the lateral leads hence the decision to give calcium gluconate among other measures to include insulin were made. The patient does have a history of general anxiety disorder, on Seroquel at home which has been restarted. Will also closely monitor the patient's blood pressure which was elevated at time of the rapid likely due to anxiety however I did start the patient on amlodipine 5 mg daily for now as we are holding her home dose lisinopril due to CARLY on CKD at this point we will continue to monitor closely however the patient has calm down, is back to her baseline and feeling better. A CBC and CMP was ordered and we will follow up with results.
[2024-05-23 13:19] LABS: Hemoglobin 8.5 g/dL (12.0-16.0)
--- NOTE | 2024-05-23 14:00 | PD.RESCONSUL ---
HPI Data of Consult Consult date: 05/23/24 Requesting Physician: Mary Morris MD Admitting Provider: Mary Morris MD Attending Provider: Mary Morris MD Primary Care Provider: Irma Ponce PA-C Consult Narrative Reason for consult: Acute on chronic kidney disease History of present illness: A 44-year-old female with past medical history of hypertension, insulin-dependent type 2 diabetes mellitus, diabetic gastroparesis, kidney disease, anxiety, PTSD, depression, substance abuse presented to the hospital with chief complaints of vomiting and back pain since 2 days. To begin with, patient stopped taking medications and not following with a doctor since 3 years as she was depressed. 2 months ago, she went to [facility] where she was diagnosed as having kidney problems and again started taking her medications. Since then, patient noticed cloudy and foul-smelling urine, but never followed up with any roll changer. Patient was apparently normal ago 2 days back, then developed vomitings-multiple episodes in a day and not able to eat or drink anything. The next day vomitings subsided but patient started to develop severe back pain on the right side with radiation to the groin and rated 10 out of 10 on pain scale. Also endorsed that she had 2-3 diarrheal episode at that time. As the pain did not subsided and continues to progress, patient was brought to the hospital by her boyfriend. Denies fever, burning micturition, shortness of breath, pedal edema, hematuria. ED Course: -Initial vitals were blood pressure 121/82 mmHg, pulse rate 112 bpm, respiratory rate 18/min, temperature 98.6 ?F, SpO2 98% with room air -Labs significant for WBC 21.4, Hb 10.4, platelets 312, sodium 131, potassium 5.8, BUN 42, creatinine 2.7, procalcitonin 2.07. Urine analysis showed turbid urine with 3+ proteinuria, 3+ glucosuria, 1+ blood, 6 RBC, 174 WBC, 3+ bacteria.Abdomen/pelvis CT showed significantly currently scarred left kidney, very prominent bilateral perinephric stranding, consistent with acute pyelonephritis -In the ED, patient was given ceftriaxone, pain medications and IV fluids -Patient was admitted for sepsis secondary to acute pyelonephritis Review of Systems Review of systems otherwise negative except what is mentioned above. Past medical history: Hypertension, diabetes mellitus, diabetic gastroparesis, kidney disease, anxiety, PTSD, depression, substance abuse Past surgical history: Surgery for tubal rupture, ovarian cyst removal, cholecystectomy Social history: Lives with her boyfriend in [place], stopped alcohol consumption, stopped consuming meth 5 months ago, but consumed on 2 days before the day of admission, smokes and eats marijuana to increase her appetite. Family history: ESRD in her mother cc:: cc: Mary Morris MD Review of Systems Review of Systems Narrative Review of Systems: Constitutional: No Weight Change, No Fever, No Chills, No Night Sweats, Fatigue, Malaise ENT/Mouth: No Hearing Changes, No Ear Pain, No Nasal Congestion, No Sinus Pain, No Hoarseness, No sore throat, No Rhinorrhea, No Swallowing Difficulty Eyes: No Eye Pain, No Swelling, No Redness, No Foreign Body, No Discharge, No Vision Changes Cardiovascular: No Chest Pain, No SOB, No PND, No Dyspnea on Exertion, No Orthopnea, No Edema, No Palpitations Respiratory: No Cough, No Sputum, No Wheezing, No Dyspnea Gastrointestinal: No Nausea, No Vomiting, No Diarrhea, No Constipation, No Pain, No Heartburn, No Anorexia, No Dysphagia, No Hematochezia, No Melena, No Flatulence, No Jaundice Genitourinary: No Dysuria, No Urinary Frequency, No Hematuria, No Urinary Incontinence, No Urgency, Flank Pain, No Urinary Flow Changes, No Hesitancy Musculoskeletal: No Arthralgias, No Myalgias, No Joint Swelling, No Joint Stiffness, No Back Pain, No Neck Pain, No Injury History Skin: No Skin Lesions, No Pruritis Neuro: No Weakness, No Numbness, No Paresthesias, No Loss of Consciousness, No Syncope, No Dizziness, No Headache, No Coordination Changes, No Recent Falls Exam Vital Signs Temp Pulse Resp BP Pulse Ox O2 Del Method 97.4 F 105 H 17 148/107 H 97 Room Air 05/23/24 12:57 05/23/24 12:58 05/23/24 12:57 05/23/24 12:58 05/23/24 12:57 05/23/24 12:00 Results Labs 05/23/24 12:35 05/23/24 15:06 Labs: Short CBC 03/08/1105/23/24 05/23/24 Range/Units 17:10 05:13 12:35 WBC 21.4 H 13.0 H D 13.1 H (3.6-11.0) Thou/mm3 Hgb 10.4 L 9.2 L 8.5 L (12.0-16.0) g/dL Hct 31.2 L 27.7 L 25.3 L (36.0-46.0) % Plt Count 312 297 258 D (140-440) Thou/mm3 BMP 05/22/24 05/22/24 05/23/24 17:10 22:19 05:13 Sodium 131 L 134 L 133 L Potassium 5.8 H 5.8 H 5.5 H Chloride 101 104 101 Carbon Dioxide 21.4 23.6 23.2 BUN 42 H 47 H 42 H Creatinine 2.7 H 2.8 H 2.6 H Glucose 117 H 71 L 151 H D Calcium 9.5 8.6 9.0 05/23/24 05/23/24 09:55 12:35 Sodium 133 L 132 L Potassium 5.9 H 4.4 D Chloride 102 100 Carbon Dioxide 24.5 22.8 BUN 40 H 39 H Creatinine 2.6 H 2.6 H Glucose 244 H D 159 H D Calcium 8.8 9.5 Cardiac Enzymes 05/23/24 Range/Units 12:35 Troponin I < 0.002 (0.0-0.045) ng/mL Liver Function 05/22/24 05/22/24 05/23/24 Range/Units 17:10 22:19 05:13 Total Bilirubin 0.3 0.2 L (0.3-1.2) mg/dL AST 26 47 H (0-34) U/L ALT 24 36 (10-49) U/L Alkaline Phosphatase 249 H 259 H (46-116) U/L Albumin 4.1 3.8 3.7 (3.5-5.0) gm/dL 05/23/24 05/23/24 Range/Units 09:55 12:35 Total Bilirubin 0.2 L (0.3-1.2) mg/dL AST 36 H (0-34) U/L ALT 31 (10-49) U/L Alkaline Phosphatase 248 H (46-116) U/L Albumin 3.7 3.4 L (3.5-5.0) gm/dL Urine 05/22/24 Range/Units 17:05 Urine Color Lt-Yellow (Lt Yel-Yel) Urine Clarity Turbid A (Clear/Hazy) Urine pH 6.0 (5.0-7.0) Ur Specific [place] 1.017 (1.001-1.035) Urine Protein 3+ A (Neg - Trace) Urine Glucose (UA) 3+ A (Negative) Quality Measures Quality Measures sepsis Current suspected stage: sepsis Possible source: genitourinary Blood cultures ordered: yes Antibiotic ordered: Yes Medications Home Medications and Allergies Home Medications ?Medication ?Instructions ?Recorded ?Confirmed ?Type lisinopril 20 mg tablet 20 mg PO QDAY 07/20/17 05/22/24 History metformin 1,000 mg tablet 1,000 mg PO BID 07/20/17 05/23/24 History quetiapine 25 mg tablet (Seroquel) 25 mg PO TID 07/20/17 05/23/24 History docusate sodium 100 mg capsule 100 mg PO BID 05/22/24 05/23/24 History gabapentin 400 mg capsule 400 mg PO TID 05/22/24 05/23/24 History Allergies Allergy/AdvReac Type Severity Reaction Status Date / Time walnut Allergy Severe Swelling Verified 05/22/24 15:57 of Lip/Tongue/Throat Visit Medications Acetaminophen (Acetaminophen 325 Mg Tablet) 650 mg PO Q6H PRN PRN Reason: Fever >100 or pain 1-3 Stop: 06/21/24 22:14 Amlodipine Besylate (Amlodipine Besylate 5 Mg Tablet) 5 mg PO QDAY BRITNEY Stop: 06/22/24 12:39 Last Admin: 05/23/24 12:58 Dose: 5 mg Dextrose (Dextrose 50%-Water Inj 50 Ml Syringe) 25 ml IV Q15MIN PRN PRN Reason: BG 50-70 responsive npo pt Stop: 06/21/24 21:31 Dextrose (Dextrose 50%-Water Inj 50 Ml Syringe) 50 ml IV Q15MIN PRN PRN Reason: BG <50 OR BG <70 & pt unresponsive Stop: 06/21/24 21:31 Docusate Sodium (Docusate Sod 100 Mg Capsule) 100 mg PO QDAY COUNTS INCLUDE 234 BEDS AT THE [facility]; Protocol Stop: 06/23/24 08:59 Gabapentin (Gabapentin 300 Mg Capsule) 300 mg PO TID COUNTS INCLUDE 234 BEDS AT THE [facility]; Protocol Stop: 06/22/24 05:59 Last Admin: 05/23/24 05:24 Dose: 300 mg Glucagon (Glucagon Inj 1 Mg Vial) 1 mg IM Q15MIN PRN PRN Reason: BG <70, and no IV access Heparin Sodium (Porcine) (Heparin Sod Inj 5000 Unit/Ml Vial) 5,000 unit SC Q12HR COUNTS INCLUDE 234 BEDS AT THE [facility] Stop: 06/05/24 22:14 Last Admin: 05/23/24 08:00 Dose: 5,000 unit Hydromorphone HCl (Hydromorphone Inj 2 Mg/Ml Vial) 0.5 mg IVP Q4HR PRN PRN Reason: Pain 7-10 Stop: 05/28/24 02:36 Last Admin: 05/23/24 12:32 Dose: 0.5 mg Sodium Chloride (Ns) 1,000 mls @ 75 mls/hr IV .[id number] COUNTS INCLUDE 234 BEDS AT THE [facility] Stop: 06/21/24 22:14 Last Admin: 05/23/24 12:38 Dose: 75 mls/hr Piperacillin/Tazobactam/Dextrose (Zosyn) 2.25 gm in 50 mls @ 100 mls/hr IV Q6HR COUNTS INCLUDE 234 BEDS AT THE [facility] Stop: 05/30/24 11:59 Last Admin: 05/23/24 13:02 Dose: 100 mls/hr Insulin Human Lispro (Insulin Lispro (Admelog) 1 Unit/0.01 Ml Unit) 0 unit SC AC COUNTS INCLUDE 234 BEDS AT THE [facility]; Protocol Stop: 06/22/24 07:29 Last Admin: 05/23/24 12:58 Dose: 2 unit Metoclopramide HCl (Metoclopramide 5 Mg Tablet) 5 mg PO Q6H PRN PRN Reason: NAUSEA OR VOMITING Stop: 06/21/24 22:14 Ondansetron HCl (Ondansetron Inj 2 Mg/Ml Inj 2 Ml) 4 mg IV Q6HR PRN; Protocol PRN Reason: NAUSEA OR VOMITING Stop: 06/22/24 03:12 Oxycodone/Acetaminophen (Oxycodone/Apap 5/325 Tablet) 1 tab PO Q6H PRN PRN Reason: PAIN 4-6 Stop: 05/28/24 02:59 Pantoprazole Sodium (Pantoprazole 20 Mg Tablet) 20 mg PO DAILY COUNTS INCLUDE 234 BEDS AT THE [facility] Stop: 06/23/24 08:59 Pharmacy Consult (Pharmacy Renal Dose Adjustment 1 Ea) 1 each XX PRN PRN PRN Reason: CONSULT Stop: 06/22/24 07:54 Quetiapine Fumarate (Quetiapine Fumarate 25 Mg Tablet) 50 mg PO TID BRITNEY Stop: 06/22/24 12:39 Last Admin: 05/23/24 12:58 Dose: 50 mg Discontinued Medications Hydrocodone Bitart/Acetaminophen (Hydrocodone/Apap 5/325 Tablet) 1 tab PO X1 ONE Stop: 05/22/24 16:39 Last Admin: 05/22/24 16:46 Dose: 1 tab Albuterol (Albuterol Rt 2.5 Mg/0.5 Ml Nebu) 5 mg INH X1 ONE Stop: 05/23/24 06:22 Amlodipine Besylate (Amlodipine Besylate 5 Mg Tablet) 5 mg PO QDAY BRITNEY Stop: 06/23/24 08:59 Calcium Gluconate (Calcium Gluconate 10% Inj 1 Gm/10 Ml Vial) 1 gm IV X1 ONE Stop: 05/23/24 10:52 Last Admin: 05/23/24 11:56 Dose: 1 gm Dextrose (Dextrose 50%-Water Inj 50 Ml Syringe) 50 ml IV X1 ONE Stop: 05/23/24 06:15 Dextrose (Dextrose 50%-Water Inj 50 Ml Syringe) 50 ml IV X1 ONE Stop: 05/23/24 10:53 Last Admin: 05/23/24 11:56 Dose: 50 ml Hydroxyzine HCl (Hydroxyzine Hcl 25 Mg Tablet) 50 mg PO Q6H PRN PRN Reason: anxiety Stop: 06/21/24 22:44 Sodium Chloride (Ns) 1,848 mls @ 1,848 mls/hr 30 ml/kg infuse over 60 min (1848 ml) IV .Q1H ONE Stop: 05/22/24 21:18 Last Infusion: 05/22/24 22:08 Dose: 0 mls/hr Ceftriaxone Sodium 1,000 mg/ (Sodium Chloride) 50 mls @ 100 mls/hr IV X1 ONE Stop: 05/22/24 20:49 Last Infusion: 05/22/24 21:33 Dose: Infused Piperacillin Sod/Tazobactam (Sod 3.375 gm/ Sodium Chloride) 50 mls @ 100 mls/hr IV Q8HR BRITNEY Stop: 05/30/24 05:59 Last Admin: 05/23/24 05:33 Dose: 100 mls/hr Piperacillin Sod/Tazobactam (Sod 3.375 gm/ Sodium Chloride) 50 mls @ 100 mls/hr IV X1 ONE Stop: 05/22/24 22:59 Last Admin: 05/22/24 22:43 Dose: 100 mls/hr Magnesium Sulfate (Magnesium Sulfate Ivpb) 4 gm in 50 mls @ 12.5 mls/hr IV X1 ONE Stop: 05/23/24 04:22 Last Admin: 05/23/24 01:02 Dose: 12.5 mls/hr Piperacillin Sod/Tazobactam (Sod 3.375 gm/ Sodium Chloride) 50 mls @ 100 mls/hr IV Q6HR BRITNEY Stop: 05/30/24 11:59 Insulin Human Regular (Insulin Hum Regular 1 Unit/0.01 Ml (Per Unit)) 5 unit IV X1 ONE Stop: 05/22/24 21:33 Last Admin: 05/22/24 21:54 Dose: 5 unit Insulin Human Regular (Insulin Hum Regular 1 Unit/0.01 Ml (Per Unit)) 10 unit IV X1 ONE Stop: 05/23/24 06:10 Insulin Human Regular (Insulin Hum Regular 1 Unit/0.01 Ml (Per Unit)) 10 unit IV X1 ONE Stop: 05/23/24 10:53 Last Admin: 05/23/24 11:57 Dose: 10 unit Metoclopramide HCl (Metoclopramide 5 Mg Tablet) 10 mg PO Q6H PRN PRN Reason: NAUSEA OR VOMITING Stop: 06/21/24 22:14 Last Admin: 05/23/24 02:13 Dose: 10 mg Metoclopramide HCl (Metoclopramide 5 Mg Tablet) 10 mg PO Q6H PRN PRN Reason: NAUSEA OR VOMITING Stop: 06/21/24 22:14 Morphine Sulfate (Morphine Sulf Inj 10 Mg/Ml Vial) 2 mg IVP X1 ONE Stop: 05/22/24 20:21 Last Admin: 05/22/24 21:04 Dose: 2 mg Ondansetron HCl (Ondansetron Odt 4 Mg Tabrap) 4 mg PO X1 ONE; Protocol Stop: 05/22/24 16:39 Last Admin: 05/22/24 16:46 Dose: 4 mg Ondansetron HCl (Ondansetron Inj 2 Mg/Ml Inj 2 Ml) 4 mg IV Q6HR PRN; Protocol PRN Reason: NAUSEA OR VOMITING Stop: 06/22/24 02:41 Oxycodone/Acetaminophen (Oxycodone/Apap 5/325 Tab (Asd)) 1 tab PO Q6H PRN PRN Reason: PAIN 4-6 Stop: 05/28/24 02:44 Patiromer (Patiromer Calcium 8.4 Gm Packet (Non-Form)) 8.4 gm PO X1 ONE Stop: 05/23/24 08:46 Last Admin: 05/23/24 10:11 Dose: 8.4 gm Quetiapine Fumarate (Quetiapine Fumarate 25 Mg Tablet) 25 mg PO TID COUNTS INCLUDE 234 BEDS AT THE [facility] Stop: 06/22/24 05:59 Last Admin: 05/23/24 05:24 Dose: 25 mg Quetiapine Fumarate (Quetiapine Fumarate 25 Mg Tablet) 50 mg PO TID COUNTS INCLUDE 234 BEDS AT THE [facility] Stop: 06/22/24 13:59 Sodium Polystyrene Sulfonate (Sod Polystyrene Sulfon Susp 15 Gm/60 Ml Btl) 30 gm PO X1 ONE Stop: 05/22/24 21:33 Last Admin: 05/22/24 21:53 Dose: 30 gm Assessment & Plan Plan A 44-year-old female with past medical history of hypertension, insulin-dependent type 2 diabetes mellitus, diabetic gastroparesis, kidney disease, anxiety, PTSD, depression, substance abuse presented to the hospital with chief complaints of vomiting and back pain since 2 days admitted in the hospital for sepsis, acute on chronic kidney disease secondary to pyelonephritis. # Acute on chronic kidney disease -likely prerenal vs renal [ATN] # Secondary to acute pyelonephritis # Underlying uncontrolled insulin dependent diabetes mellitus -Patient is in compliant with her medication since 3 years and restarted taking her medication since 2 months -Patient is diagnosed with kidney disease 2 months ago but did not see any roll changer or PCP since then -Came to hospital with complaints of vomitings and right-sided back pain radiating to the groin -Denies fever, burning micturition, hematuria but endorsed that she is having cloudy, foul-smelling urine since long time. -Labs significant for WBC 21.4, Hb 10.4, platelets 312, sodium 131, potassium 5.8, BUN 42, creatinine 2.7, procalcitonin 2.07. -Urine analysis showed turbid urine with 3+ proteinuria, 3+ glucosuria, 1+ blood, 6 RBC, 174 WBC, 3+ bacteria. -Abdomen/pelvis CT showed significantly currently scarred left kidney, very prominent bilateral perinephric stranding, consistent with acute pyelonephritis -Patient's baseline creatinine is 2 from 2019 and EGFR is around 31 -A1c on 05/23/2024 is 8.9 Plan -Preliminary urinary culture showed Klebsiella pneumonia -Blood cultures reports are pending -Continue Zosyn [05/22- -Avoid nephrotoxic medication and renally dose medications -Monitor urine output -Encouraged to take plenty of oral fluids -Recommended strict control of blood pressures #History of hypertension -Patient was started on amlodipine 5 Mg p.o. daily -Recommended to continue to monitor blood pressures -Titrate medications as needed. # Insulin-dependent diabetes mellitus # Anxiety/PTSD/depression -Rest of the medical conditions treated as per primary team Thank you for allowing us to involved in the care of patient Patient plan of care was discussed with the attending physician, Dr. Ben Childs, PGY1 Attending Provider Attestation/Addendum Patient seen and examined with resident physician Dr. Diaz. Note reviewed, agree with findings and recommendations. Patient admitted with nausea, vomiting, sepsis and pyelonephritis. CT abdomen showed small left kidney with extensive bilateral perinephric stranding. Renal ultrasound reviewed by me showed significant scarring/calcifications in the pelvis. Urine protein/creatinine consistent with nephrotic range proteinuria. Patient diabetic for few years. Most likely she has diabetic nephropathy. [place] metabolic acidosis-from a renal tubular acidosis type IV in the setting of hyperkalemia. Will benefit from Veltassa daily. Continue with IV fluids/antibiotics. Patient in a positive fluid balance. Positive for opiates, methamphetamine and marijuana Check vitamin D, intact PTH, uric acid levels. Most likely she has underlying CKD stage III from a diabetic nephropathy. Will need renal follow-up as an outpatient. Thank you Dr. Morris for allowing me to participate in the care of Ms. Bryson
--- NOTE | 2024-05-23 14:52 | ESPR_ITS ---
<Statement entered by Elijah Christy MD - 05/23/24 19:50> Patient was seen and examined at the bedside. Patient was overnight admitted for sepsis due to emphysematous cystitis and CARLY. Will continue with IV Zosyn and await on blood cultures and urine cultures. Patient was found to be meth positive therefore social secretary were contacted. We consulted urology for further workup. Ordered urine protein creatinine ratio, ultrasound kidneys and nephrology was consulted for CARLY and CKD. A1c was 8.9 therefore patient was educated on diabetes and basal bolus regimen was adjusted. Hyperkalemia resolved this morning. Patient was given calcium gluconate, breathing treatment and insulin 5 units with amp of D50. Rapid response was called for anxiety and patient was reassured. Will wait on culture results. Calabrese catheter was placed for strict BIBIANA's. All labs and orders were reviewed. I saw and examined the patient, and I agree with current management stated by Dr Benitez MD,PGY1. Plan of care was discussed with the attending physician and resident physician. Disclaimer: Despite multiple revisions, due to the dictation software being used, the document bellow may not be free of grammatical errors including phonetic/typographic errors. However, this does not deter from our commitment to providing health care in the patient's best interest in mind. Dr. Franky MD, PGY 2 Documentation for date of: 05/23/24 Subjective Subjective Interval history: Pt. is an overnight admit. Pt is seen and examined at bedside this morning. Patient is very tearful and emotional and states that she has a lot of anxiety about her health and feels that she did not take care of her health. Patient is concerned that her kidneys are failing and does not want any dialysis and she is very emotional about relapsing and using meth and causing further damage to her health. Patient states that she was vomiting 2 days ago and was using marijuana and suddenly started having abdominal pain which she related to her history of gastroparesis but the pain was very severe and was worsening over time which prompted her to come to the ED. patient states that she was recently treated with antibiotics for her UTI by her primary care. Patient states she does not check her glucose daily and has been waiting on insurance approval for [employer]. Patient admitted to using meth 2 days ago and uses marijuana daily. Currently patient states she has some improvement of abdominal pain and no longer is nauseous. Patient denies any symptoms of dysuria or urgency. Exam Vital Signs Temp Pulse Resp BP Pulse Ox O2 Del Method 97.4 F 105 H 17 148/107 H 97 Room Air 05/23/24 12:57 05/23/24 12:58 05/23/24 12:57 05/23/24 12:58 05/23/24 12:57 05/23/24 12:00 Narrative Exam GENERAL: A&Ox3 . tearful, Awake, anxious obese female NEURO: no focal neurological deficits HEENT: Atraumatic, Normocephalic. mucous membranes moist. Eyes open, symmetrical, & clear HEART: Normal Heart Sounds LUNGS: Clear to auscultation with no wheezing or crackles. ABDOMEN: soft, non-distended, mildly tender to palpation, bowel sounds heard, no guarding or rebound tenderness SKIN: No Rash or ecchymoses EXTREMITIES: No edema, tenderness, able to move all 4 extremities, pedal pulses palpated Objective Labs 05/23/24 12:35 05/23/24 15:06 Labs: Laboratory Results - last 24 hr 05/22/24 05/22/24 05/22/24 17:05 17:10 20:55 WBC 21.4 H RBC 3.95 L Hgb 10.4 L Hct 31.2 L MCV 79 L MCH 26.3 MCHC 33.3 RDW Std Deviation 39.4 Plt Count 312 Neut % (Auto) 88 H Lymph % (Auto) 7 L [place] % (Auto) 3 Eos % (Auto) 1 Baso % (Auto) 0 Neut # (Auto) 18.7 H Lymph # (Auto) 1.5 [place] # (Auto) 0.7 Eos # (Auto) 0.2 Baso # (Auto) 0.0 Immature Gran # (Auto) 0.23 H Absolute Nucleated RBC 0.00 Immature Gran % 1 H Nucleated RBC % 0 PT 11.6 INR 1.1 APTT Sodium 131 L Potassium 5.8 H Chloride 101 Carbon Dioxide 21.4 Anion Gap 9 BUN 42 H Creatinine 2.7 H Estim Creat Clear Calc 29.8 L eGFR 22 L BUN/Creatinine Ratio [address] Glu mg/dL Hemoglobin A1c Calculated Osmolality 274 L Lactic Acid 1.4 Calcium 9.5 Corrected Calcium 9.5 Phosphorus Magnesium Total Bilirubin 0.3 AST 26 ALT 24 Alkaline Phosphatase 249 H Troponin I Total Protein 8.8 H Albumin 4.1 Globulin 4.7 H Albumin/Globulin Ratio 0.9 L Triglycerides Cholesterol LDL Cholesterol, Calc HDL Cholesterol Cholesterol/HDL Ratio Lipase 75 H Procalcitonin 2.07 H TSH Ur Collection Type Clean Catch Urine Color Lt-Yellow Urine Clarity Turbid A Urine pH 6.0 Ur Specific [place] 1.017 Urine Protein 3+ A Urine Glucose (UA) 3+ A Urine Ketones Negative Urine Blood 1+ A Urine Nitrite Negative Urine Bilirubin Negative Urine Urobilinogen (Auto) Negative Ur Leukocyte Esterase Positive Urine RBC 6 H Urine WBC 174 H Ur Squamous Epith Cells 7 H Urine Bacteria 3+ A Ur Random Creatinine Ur Random Microalbumin Ur Random Sodium Ur Random Potassium Ur Random Chloride U Creat (Microalbumin) Microalb/Creat Ratio Urine HCG, Qual Negative Urine Opiates Screen Urine Fentanyl Screen Ur Barbiturates Screen U Amphetamin/Meth Scrn U Benzodiazepines Scrn U Cocaine Metab Screen U Marijuana (THC) Screen 05/22/24 05/23/24 05/23/24 22:19 03:00 05:13 WBC 13.0 H D RBC 3.48 L Hgb 9.2 L Hct 27.7 L MCV 80 MCH 26.4 MCHC 33.2 RDW Std Deviation 39.6 Plt Count 297 Neut % (Auto) 87 H Lymph % (Auto) 8 L [place] % (Auto) 4 Eos % (Auto) 1 Baso % (Auto) 0 Neut # (Auto) 11.3 H Lymph # (Auto) 1.0 [place] # (Auto) 0.5 Eos # (Auto) 0.1 Baso # (Auto) 0.0 Immature Gran # (Auto) 0.14 H Absolute Nucleated RBC 0.00 Immature Gran % 1 H Nucleated RBC % 0 PT 11.2 INR 1.0 APTT 34.4 Sodium 134 L 133 L Potassium 5.8 H 5.5 H Chloride 104 101 Carbon Dioxide 23.6 23.2 Anion Gap 6 L 9 BUN 47 H 42 H Creatinine 2.8 H 2.6 H Estim Creat Clear Calc 28.8 L 30.7 L eGFR 21 L 23 L BUN/Creatinine Ratio 17 16 Glucose 71 L [address] Glu mg/dL 209 H Hemoglobin A1c 8.9 H Calculated Osmolality 278 279 Lactic Acid Calcium 8.6 9.0 Corrected Calcium 8.8 9.2 Phosphorus 3.1 4.9 Magnesium 1.0 L 2.2 Total Bilirubin 0.2 L AST 47 H ALT 36 Alkaline Phosphatase 259 H Troponin I Total Protein 8.1 Albumin 3.8 3.7 Globulin 4.4 H Albumin/Globulin Ratio 0.8 L Triglycerides 182 H Cholesterol 130 L LDL Cholesterol, Calc 59 HDL Cholesterol 35 L Cholesterol/HDL Ratio 3.7 Lipase Procalcitonin TSH 0.62 Ur Collection Type Urine Color Urine Clarity Urine pH Ur Specific [place] Urine Protein Urine Glucose (UA) Urine Ketones Urine Blood Urine Nitrite Urine Bilirubin Urine Urobilinogen (Auto) Ur Leukocyte Esterase Urine RBC Urine WBC Ur Squamous Epith Cells Urine Bacteria Ur Random Creatinine 66 Ur Random Microalbumin Ur Random Sodium 35.2 Ur Random Potassium 43 Ur Random Chloride 35.7 L U Creat (Microalbumin) Microalb/Creat Ratio Urine HCG, Qual Urine Opiates Screen Positive A Urine Fentanyl Screen Negative Ur Barbiturates Screen Negative U Amphetamin/Meth Scrn Positive A U Benzodiazepines Scrn Negative U Cocaine Metab Screen Negative U Marijuana (THC) Screen Positive A 05/23/24 05/23/24 05/23/24 09:55 11:25 12:35 WBC 13.1 H RBC 3.22 L Hgb 8.5 L Hct 25.3 L MCV 79 L MCH 26.4 MCHC 33.6 RDW Std Deviation 40.4 Plt Count 258 D Neut % (Auto) 85 H Lymph % (Auto) 9 L [place] % (Auto) 5 Eos % (Auto) 0 Baso % (Auto) 0 Neut # (Auto) 11.1 H Lymph # (Auto) 1.1 [place] # (Auto) 0.7 Eos # (Auto) 0.1 Baso # (Auto) 0.0 Immature Gran # (Auto) 0.10 H Absolute Nucleated RBC 0.00 Immature Gran % 1 H Nucleated RBC % 0 PT INR APTT Sodium 133 L 132 L Potassium 5.9 H 4.4 D Chloride 102 100 Carbon Dioxide 24.5 22.8 Anion Gap 7 9 BUN 40 H 39 H Creatinine 2.6 H 2.6 H Estim Creat Clear Calc 30.7 L 30.7 L eGFR 23 L 23 L BUN/Creatinine Ratio 15 15 Glucose 244 H D [address] Glu mg/dL Hemoglobin A1c Calculated Osmolality 284 276 Lactic Acid Calcium 8.8 9.5 Corrected Calcium 9.0 10.0 Phosphorus 4.2 Magnesium Total Bilirubin 0.2 L AST 36 H ALT 31 Alkaline Phosphatase 248 H Troponin I < 0.002 Total Protein 7.5 Albumin 3.7 3.4 L Globulin 4.1 H Albumin/Globulin Ratio 0.8 L Triglycerides Cholesterol LDL Cholesterol, Calc HDL Cholesterol Cholesterol/HDL Ratio Lipase Procalcitonin TSH Ur Collection Type Urine Color Urine Clarity Urine pH Ur Specific [place] Urine Protein Urine Glucose (UA) Urine Ketones Urine Blood Urine Nitrite Urine Bilirubin Urine Urobilinogen (Auto) Ur Leukocyte Esterase Urine RBC Urine WBC Ur Squamous Epith Cells Urine Bacteria Ur Random Creatinine Ur Random Microalbumin > 380 H Ur Random Sodium Ur Random Potassium Ur Random Chloride U Creat (Microalbumin) 39 Microalb/Creat Ratio 974 H Urine HCG, Qual Urine Opiates Screen Urine Fentanyl Screen Ur Barbiturates Screen U Amphetamin/Meth Scrn U Benzodiazepines Scrn U Cocaine Metab Screen U Marijuana (THC) Screen Quality Measures Quality Measures sepsis Current suspected stage: sepsis Possible source: genitourinary Blood cultures ordered: yes Antibiotic ordered: Yes Assessment & Plan Assessment Current Active Medications: Generic Name Dose Route Start Last Admin Trade Name Freq PRN Reason Stop Dose Admin Acetaminophen 650 mg 05/22/24 22:15 Acetaminophen 325 Mg Tablet PO 06/21/24 22:14 Q6H PRN Fever >100 or pain 1-3 Amlodipine Besylate 5 mg 05/23/24 12:40 05/23/24 12:58 Amlodipine Besylate 5 Mg Tablet PO 06/22/24 12:39 5 mg QDAY BRITNEY Administration Dextrose 25 ml 05/22/24 21:32 Dextrose 50%-Water Inj 50 Ml Syringe IV 06/21/24 21:31 Q15MIN PRN BG 50-70 responsive npo pt Dextrose 50 ml 05/22/24 21:32 Dextrose 50%-Water Inj 50 Ml Syringe IV 06/21/24 21:31 Q15MIN PRN BG <50 OR BG <70 & pt unresponsive Docusate Sodium 100 mg 05/24/24 09:00 Docusate Sod 100 Mg Capsule PO 06/23/24 08:59 QDAY BRITNEY Protocol Gabapentin 300 mg 05/23/24 06:00 05/23/24 14:10 Gabapentin 300 Mg Capsule PO 06/22/24 05:59 300 mg TID BRITNEY Administration Protocol Glucagon 1 mg 05/22/24 21:32 Glucagon Inj 1 Mg Vial IM Q15MIN PRN BG <70, and no IV access Heparin Sodium (Porcine) 5,000 unit 05/22/24 22:15 05/23/24 08:00 Heparin Sod Inj 5000 Unit/Ml Vial SC 06/05/24 22:14 5,000 unit Q12HR BRITNEY Administration Hydromorphone HCl 0.5 mg 05/23/24 02:37 05/23/24 12:32 Hydromorphone Inj 2 Mg/Ml Vial IVP 05/28/24 02:36 0.5 mg Q4HR PRN Administration Pain 7-10 Sodium Chloride 1,000 mls @ 75 mls/hr 05/22/24 22:15 05/23/24 12:38 Ns IV 06/21/24 22:14 75 mls/hr .[id number] BRITENY Administration Piperacillin/Tazobactam/Dextrose 2.25 gm in 50 mls @ 100 mls/hr 05/23/24 12:00 05/23/24 13:02 Zosyn IV 05/30/24 11:59 100 mls/hr Q6HR BRITNEY Administration Insulin Human Lispro 0 unit 05/23/24 07:30 05/23/24 12:58 Insulin Lispro (Admelog) 1 Unit/0.01 Ml Unit SC 06/22/24 07:29 2 unit AC BRITNEY Administration Protocol Metoclopramide HCl 5 mg 05/23/24 10:50 Metoclopramide 5 Mg Tablet PO 06/21/24 22:14 Q6H PRN NAUSEA OR VOMITING Ondansetron HCl 4 mg 05/23/24 03:13 Ondansetron Inj 2 Mg/Ml Inj 2 Ml IV 06/22/24 03:12 Q6HR PRN NAUSEA OR VOMITING Protocol Oxycodone/Acetaminophen 1 tab 05/23/24 03:01 Oxycodone/Apap 5/325 Tablet PO 05/28/24 02:59 Q6H PRN PAIN 4-6 Pantoprazole Sodium 20 mg 05/24/24 09:00 Pantoprazole 20 Mg Tablet PO 06/23/24 08:59 DAILY [facility] Pharmacy Consult 1 each 05/23/24 07:55 Pharmacy Renal Dose Adjustment 1 Ea XX 06/22/24 07:54 PRN PRN CONSULT Quetiapine Fumarate 50 mg 05/23/24 12:40 05/23/24 14:11 Quetiapine Fumarate 25 Mg Tablet PO 06/22/24 12:39 Not Given TID BRITNEY Plan Poonam is a 44 y/o female with PMHx of hypertension, insulin-dependent type 2 diabetes, chronic CORTEZ, diabetic gastroparesis, substance abuse, who is admitted for sepsis secondary to emphysematous cystitis. #Sepsis secondary to #Emphysematous cystitis #Acute Pyelonephritis #Asymptomatic bacteriuria -SIRS criteria 04/23: tachycardia, leukocytosis with acute sepsis-related organ dysfunction as evidence by CARLY -qSOFA: 0 points, lactate 1.4 -CT abdomen pelvis shows emphysematous cystitis -CT also shows some bladder wall thickening up to 15mm, concerning for possible cancer will need to see outpatient urology -Given Sepsis Bolus 1.8 L -Urine analysis shows 174 white cells, positive bacteria, positive leukocyte esterase, however patient is not complaining of any urinary symptoms Plan: -Zosyn 3.375 mg Q8H IV -urine cultures grew GNR -Follow-up blood cultures -Pain control -Antiemetics -Tylenol for antipyretic -renal ultrasound ordered -urine cr and protein ordered -Urology consult placed, appreciate recommendations #Acute kidney injury on CKD stage IIIb #Hyperkalemia DDx: Prerenal versus ATN versus obstructive -Patient's creatinine seems to be 2.0 for the past couple with however, patient's BUN and creatinine today is 47 and 2.7 ratio appears to be 17. -Could be nephrotoxic component or prerenal component, however patient will need some fluids and considering patient has CKD will give a gentle rate -Patient does not take metformin anymore -Patient's potassium 5.8, given 5 units of insulin in 30mg Kayexalate Plan: -NS maintenance 75 cc/hour -Strict I's and O's -Urine lytes and creatinine -Nephrology consult placed, appreciate recommendations #History of hypertension -Bp on admission is stable -Holding home lisinopril in setting of CARLY -Will adjust blood pressure as needed #Diabetes mellitus type II, insulin-dependent #History of diabetic gastroparesis -A1c on 05/23 8.9 -Sliding scale insulin -Hypoglycemic protocol in place -Blood sugar checks with meals -Reglan 10 mg every 6 hours as needed -Resumed home gabapentin for 400 mg 3 times daily #History of CORTEZ #Polysubstance abuse -Pt has 15 year history of meth use and uses eadable THC regularly -Former heavy alcohol use Urine tox is positive for meth, opiates and marijuan Plan: -Resumed home Seroquel 25 mg 3 times daily -Hydroxyzine 50 mg every 6 hours as needed -Due to meth use history, will order echo #Health Maintenance Disposition: [facility] DVT prophylaxis: Heparin GI prophylaxis: None indicated at this time Diet: Renal CODE STATUS: DNR Assessment and plan discussed with my senior resident Dr. Christy & attending physician Dr. Heather Marquis (PGY-1)- Internal medicine resident Attending Provider Attestation/Addendum I have discussed and was present for the essential components of the history, physical examination, diagnosis, and treatment plan with the resident. I agree with the patient's care as documented by the resident and amended herein by me. Eric Romero DO. Although this document has been carefully reviewed, there may still be some phonetic and other typographical errors. These errors are purely grammatical due to imperfections in the software program and should not be construed in any way to compromise the substance of the patient's medical care during this visit.
[2024-05-23 15:56] LABS: Alanine Aminotransferase 27 U/L (10-49); Albumin, Serum 3.1 gm/dL (3.5-5.0); Albumin/Globulin Ratio 0.9 (1.2-2.2); Alkaline Phosphatase 223 U/L (46-116); Anion Gap 7 (7-16); Aspartate Amino Transferase 31 U/L (0-34); BUN/Creatinine Ratio 14 Ratio (12-20); Bilirubin,Total < 0.2 mg/dL (0.3-1.2); Blood Urea Nitrogen 36 mg/dL (9-23); Calcium 8.4 mg/dL (8.3-10.6); Calcium (Corrected) 9.1 mg/dL (8.5-10.1); Carbon Dioxide 22.1 mMol/L (20.0-31.0); Chloride 100 mMol/L (98-107); Creatinine (Component) 2.6 mg/dL (0.6-1.3); Estimated Creatinine Clearance 30.1 mL/min (>60); Globulin 3.6 gm/dL (2.3-3.5); Glucose 241 mg/dL (74-106); Osmolality,Calculated 275 (275-295); Potassium 5.3 mMol/L (3.4-5.1); Sodium 129 mMol/L (136-145); Total Protein 6.7 gm/dL (5.7-8.2); eGFR 23 See Note
[2024-05-24] VITALS (9 sets, daily range): BP systolic 127–164; BP diastolic 84–99; PULSE 78–97; RESP 16–19; TEMP 36.1–36.4; O2SAT 96–98
[2024-05-24] MEDS: PIPER/TAZO 2.25 GM 2.25 GM/50 ML BAG IV ×5 (00:06→23:34)
[2024-05-24] MEDS: SODIUM CHLORIDE 0.9% 1000 ML 1,000 ML 75 ML IV ×2 (04:00→21:11)
[2024-05-24] MEDS: GABAPENTIN 300 MG CAPSULE PO (05:12)
[2024-05-24] MEDS: QUEtiapine FUMARATE 25 MG TABLET 50 MG PO ×3 (05:12→21:10)
[2024-05-24 05:46] LABS: Basophils % (Auto) 1 % (0-2.5); Eosinophils # (Auto) 0.2 Thou/mm3 (0.0-0.5); Eosinophils % (Auto) 2 % (0-10); Hematocrit 25.1 % (36.0-46.0); Hemoglobin 8.5 g/dL (12.0-16.0); Immature Granulocytes % (Auto) 1 % (0-0); Immature Granulocytes Auto 0.12 Thou/mm3 (0.00-0.00); Lymphocytes # (Auto) 1.7 Thou/mm3 (1.0-4.8); Lymphocytes % (Auto) 20 % (10-50); Mean Corpuscular HGB Conc 33.9 g/dl (31.0-37.0); Mean Corpuscular Hemoglobin 26.7 pg (25.0-35.0); Mean Corpuscular Volume 79 fL (80-100); Monocytes # (Auto) 0.8 Thou/mm3 (0.0-0.8); Monocytes % (Auto) 9 % (0-12); Neutrophils # (Auto) 5.8 Thou/mm3 (1.8-7.7); Neutrophils % (Auto) 67 % (37-80); Nucleated Red Blood Cell % 0 /100 WBC (0); Platelet Count 260 Thou/mm3 (140-440); RDW Standard Deviation 39.5 fL (36.4-46.3); Red Blood Count 3.18 Miln/mm3 (4.00-5.20); White Blood Count 8.5 Thou/mm3 (3.6-11.0)
[2024-05-24 06:07] LABS: Alanine Aminotransferase 23 U/L (10-49); Albumin, Serum 3.5 gm/dL (3.5-5.0); Albumin/Globulin Ratio 0.9 (1.2-2.2); Alkaline Phosphatase 227 U/L (46-116); Anion Gap 8 (7-16); Aspartate Amino Transferase 19 U/L (0-34); BUN/Creatinine Ratio 14 Ratio (12-20); Bilirubin,Total 0.2 mg/dL (0.3-1.2); Blood Urea Nitrogen 39 mg/dL (9-23); Calcium 9.1 mg/dL (8.3-10.6); Calcium (Corrected) 9.5 mg/dL (8.5-10.1); Chloride 106 mMol/L (98-107); Creatinine (Component) 2.8 mg/dL (0.6-1.3); Estimated Creatinine Clearance 27.9 mL/min (>60); Glucose 133 mg/dL (74-106); Magnesium 1.6 mg/dL (1.6-2.6); Osmolality,Calculated 285 (275-295); Phosphorous 3.7 mg/dL (2.4-5.1); Potassium 4.6 mMol/L (3.4-5.1); Sodium 137 mMol/L (136-145); Total Protein 7.5 gm/dL (5.7-8.2); eGFR 21 See Note
[2024-05-24] MEDS: INSULIN LISPRO (AdmeLOG) 1 UNIT/0.01 ML UNIT SC ×3 (07:35→16:43)
[2024-05-24] MEDS: PANTOPRAZOLE 20 MG TABLET PO (08:51)
[2024-05-24] MEDS: DOCUSATE SOD 100 MG CAPSULE PO (08:51)
[2024-05-24] MEDS: amLODIPine BESYLATE 5 MG TABLET PO (08:51)
[2024-05-24] MEDS: HEPARIN SOD INJ 5000 UNIT/ML VIAL SC ×2 (08:52→21:11)
[2024-05-24 08:54] LABS: Uric Acid 5.7 mg/dL (3.1-7.8)
[2024-05-24] MEDS: RINGERS LACTATED 1000 ML 500 ML 999 ML IV (09:10)
[2024-05-24 09:18] LABS: Vitamin D 25 Hydroxy Total 10.4 ng/mL (7.3-40.2)
[2024-05-24 09:22] LABS: Parathyroid Hormone Intact 110.5 pg/ml (18.5-88.0)
--- NOTE | 2024-05-24 10:01 | PD.RESPRO ---
Documentation for date of: 05/24/24 Subjective Subjective Interval history: A 44-year-old female with past medical history of hypertension, insulin-dependent type 2 diabetes mellitus, diabetic gastroparesis, kidney disease, anxiety, PTSD, depression, substance abuse presented to the hospital with chief complaints of vomiting and back pain since 2 days. To begin with, patient stopped taking medications and not following with a doctor since 3 years as she was depressed. 2 months ago, she went to [facility] where she was diagnosed as having kidney problems and again started taking her medications. Since then, patient noticed cloudy and foul-smelling urine, but never followed up with any lead software engineer. Patient was apparently normal ago 2 days back, then developed vomitings-multiple episodes in a day and not able to eat or drink anything. The next day vomitings subsided but patient started to develop severe back pain on the right side with radiation to the groin and rated 10 out of 10 on pain scale. Also endorsed that she had 2-3 diarrheal episode at that time. As the pain did not subsided and continues to progress, patient was brought to the hospital by her boyfriend. Denies fever, burning micturition, shortness of breath, pedal edema, hematuria. ED Course: -Initial vitals were blood pressure 121/82 mmHg, pulse rate 112 bpm, respiratory rate 18/min, temperature 98.6 ?F, SpO2 98% with room air -Labs significant for WBC 21.4, Hb 10.4, platelets 312, sodium 131, potassium 5.8, BUN 42, creatinine 2.7, procalcitonin 2.07. Urine analysis showed turbid urine with 3+ proteinuria, 3+ glucosuria, 1+ blood, 6 RBC, 174 WBC, 3+ bacteria.Abdomen/pelvis CT showed significantly currently scarred left kidney, very prominent bilateral perinephric stranding, consistent with acute pyelonephritis -In the ED, patient was given ceftriaxone, pain medications and IV fluids -Patient was admitted for sepsis secondary to acute pyelonephritis 05/24/2024 Patient was seen and examined at the bedside Patient was resting comfortably. Reported that her pain is decreasing. No acute overnight events. Labs showed sodium 137, potassium 4.6, BUN 39, creatinine 2.8 Urine became less cloudy Continue maintenance IV fluids and Del Toro catheterization As patient is able to make adequate amount of urine, continue to monitor renal functions for now Exam Vital Signs Temp Pulse Resp BP Pulse Ox O2 Del Method O2 Flow Rate 97.6 F 85 19 127/85 H 96 Nasal Cannula 1 05/24/24 08:00 05/24/24 08:51 05/24/24 08:00 05/24/24 08:51 05/24/24 08:00 05/24/24 04:00 05/23/24 16:00 Narrative Exam General: Awake. HEENT: Normocephalic, atraumatic, mucous membranes moist. Heart: Regular rate and rhythm, no murmurs. Lungs: Clear to auscultation with no wheezing or crackles. Abdomen: Soft, nondistended, mild tenderness in the right loin, positive bowel sounds. ?No guarding or rebound tenderness. Neurologic: Alert and oriented x3, no gross neurological deficit, and patient able to move all 4 extremities. Extremities: No edema. Skin: No rash or ecchymoses. Objective Labs 05/25/24 05:50 05/25/24 05:50 Labs: Laboratory Results - last 24 hr 05/23/24 05/23/24 05/23/24 09:55 11:25 12:35 WBC 13.1 H RBC 3.22 L Hgb 8.5 L Hct 25.3 L MCV 79 L MCH 26.4 MCHC 33.6 RDW Std Deviation 40.4 Plt Count 258 D Neut % (Auto) 85 H Lymph % (Auto) 9 L [place] % (Auto) 5 Eos % (Auto) 0 Baso % (Auto) 0 Neut # (Auto) 11.1 H Lymph # (Auto) 1.1 [place] # (Auto) 0.7 Eos # (Auto) 0.1 Baso # (Auto) 0.0 Immature Gran # (Auto) 0.10 H Absolute Nucleated RBC 0.00 Immature Gran % 1 H Nucleated RBC % 0 Sodium 133 L 132 L Potassium 5.9 H 4.4 D Chloride 102 100 Carbon Dioxide 24.5 22.8 Anion Gap 7 9 BUN 40 H 39 H Creatinine 2.6 H 2.6 H Estim Creat Clear Calc 30.7 L 30.7 L eGFR 23 L 23 L BUN/Creatinine Ratio 15 15 Glucose 244 H D 159 H D Calculated Osmolality 284 276 Uric Acid Calcium 8.8 9.5 Corrected Calcium 9.0 10.0 Phosphorus 4.2 Magnesium Total Bilirubin 0.2 L AST 36 H ALT 31 Alkaline Phosphatase 248 H Troponin I < 0.002 Total Protein 7.5 Albumin 3.7 3.4 L Globulin 4.1 H Albumin/Globulin Ratio 0.8 L 25-OH Vitamin D Total PTH Intact Ur Random Microalbumin > 380 H U Creat (Microalbumin) 39 Microalb/Creat Ratio 974 H 05/23/24 05/24/24 15:06 05:22 WBC 8.5 RBC 3.18 L Hgb 8.5 L Hct 25.1 L MCV 79 L MCH 26.7 MCHC 33.9 RDW Std Deviation 39.5 Plt Count 260 Neut % (Auto) 67 Lymph % (Auto) 20 [place] % (Auto) 9 Eos % (Auto) 2 Baso % (Auto) 1 Neut # (Auto) 5.8 Lymph # (Auto) 1.7 [place] # (Auto) 0.8 Eos # (Auto) 0.2 Baso # (Auto) 0.0 Immature Gran # (Auto) 0.12 H Absolute Nucleated RBC 0.00 Immature Gran % 1 H Nucleated RBC % 0 Sodium 129 L 137 Potassium 5.3 H D 4.6 D Chloride 100 106 Carbon Dioxide 22.1 23.0 Anion Gap 7 8 BUN 36 H 39 H Creatinine 2.6 H 2.8 H Estim Creat Clear Calc 30.1 L 27.9 L eGFR 23 L 21 L BUN/Creatinine Ratio 14 14 Glucose 241 H D 133 H D Calculated Osmolality 275 285 Uric Acid 5.7 Calcium 8.4 9.1 Corrected Calcium 9.1 9.5 Phosphorus 3.7 Magnesium 1.6 Total Bilirubin < 0.2 L 0.2 L AST 31 19 ALT 27 23 Alkaline Phosphatase 223 H D 227 H Troponin I Total Protein 6.7 7.5 Albumin 3.1 L 3.5 Globulin 3.6 H 4.0 H Albumin/Globulin Ratio 0.9 L 0.9 L 25-OH Vitamin D Total 10.4 PTH Intact 110.5 H Ur Random Microalbumin U Creat (Microalbumin) Microalb/Creat Ratio Quality Measures Quality Measures sepsis Current suspected stage: sepsis Possible source: genitourinary Blood cultures ordered: yes Antibiotic ordered: Yes Assessment & Plan Assessment Current Active Medications: Generic Name Dose Route Start Last Admin Trade Name Freq PRN Reason Stop Dose Admin Acetaminophen 650 mg 05/22/24 22:15 Acetaminophen 325 Mg Tablet PO 06/21/24 22:14 Q6H PRN Fever >100 or pain 1-3 Amlodipine Besylate 5 mg 05/23/24 12:40 05/24/24 08:51 Amlodipine Besylate 5 Mg Tablet PO 06/22/24 12:39 5 mg QDAY BRITNEY Administration Dextrose 25 ml 05/22/24 21:32 Dextrose 50%-Water Inj 50 Ml Syringe IV 06/21/24 21:31 Q15MIN PRN BG 50-70 responsive npo pt Dextrose 50 ml 05/22/24 21:32 Dextrose 50%-Water Inj 50 Ml Syringe IV 06/21/24 21:31 Q15MIN PRN BG <50 OR BG <70 & pt unresponsive Docusate Sodium 100 mg 05/24/24 09:00 05/24/24 08:51 Docusate Sod 100 Mg Capsule PO 06/23/24 08:59 100 mg QDAY BRITNEY Administration Protocol Gabapentin 200 mg 05/24/24 14:00 Gabapentin 100 Mg Capsule PO 06/23/24 13:59 TID BRITNEY Protocol Glucagon 1 mg 05/22/24 21:32 Glucagon Inj 1 Mg Vial IM Q15MIN PRN BG <70, and no IV access Heparin Sodium (Porcine) 5,000 unit 05/22/24 22:15 05/24/24 08:52 Heparin Sod Inj 5000 Unit/Ml Vial SC 06/05/24 22:14 5,000 unit Q12HR BRITNEY Administration Sodium Chloride 1,000 mls @ 75 mls/hr 05/22/24 22:15 05/24/24 04:00 Ns IV 06/21/24 22:14 75 mls/hr .[id number] BRITNEY Administration Piperacillin/Tazobactam/Dextrose 2.25 gm in 50 mls @ 100 mls/hr 05/23/24 12:00 05/24/24 05:12 Zosyn IV 05/30/24 11:59 100 mls/hr Q6HR BRITNEY Administration Magnesium Sulfate 4 gm in 50 mls @ 12.5 mls/hr 05/24/24 08:26 Magnesium Sulfate Ivpb IV 05/24/24 12:25 X1 ONE Insulin Human Lispro 0 unit 05/23/24 07:30 05/24/24 07:35 Insulin Lispro (Admelog) 1 Unit/0.01 Ml Unit SC 06/22/24 07:29 1 unit AC BRITNEY Administration Protocol Metoclopramide HCl 5 mg 05/23/24 10:50 Metoclopramide 5 Mg Tablet PO 06/21/24 22:14 Q6H PRN NAUSEA OR VOMITING Ondansetron HCl 4 mg 05/23/24 03:13 Ondansetron Inj 2 Mg/Ml Inj 2 Ml IV 06/22/24 03:12 Q6HR PRN NAUSEA OR VOMITING Protocol Oxycodone/Acetaminophen 1 tab 05/23/24 03:01 Oxycodone/Apap 5/325 Tablet PO 05/28/24 02:59 Q6H PRN PAIN 4-6 Pantoprazole Sodium 20 mg 05/24/24 09:00 05/24/24 08:51 Pantoprazole 20 Mg Tablet PO 06/23/24 08:59 20 mg DAILY BRITNEY Administration Pharmacy Consult 1 each 05/23/24 07:55 Pharmacy Renal Dose Adjustment 1 Ea XX 06/22/24 07:54 PRN PRN CONSULT Quetiapine Fumarate 50 mg 05/23/24 12:40 05/24/24 05:12 Quetiapine Fumarate 25 Mg Tablet PO 06/22/24 12:39 50 mg TID BRITNEY Administration Plan A 44-year-old female with past medical history of hypertension, insulin-dependent type 2 diabetes mellitus, diabetic gastroparesis, kidney disease, anxiety, PTSD, depression, substance abuse presented to the hospital with chief complaints of vomiting and back pain since 2 days admitted in the hospital for sepsis, acute on chronic kidney disease secondary to pyelonephritis. # Acute on chronic kidney disease, IIIb -likely prerenal vs renal [ATN] # Secondary to acute pyelonephritis , Emphysematous cystitis # Underlying uncontrolled insulin dependent diabetes mellitus -Patient is in compliant with her medication since 3 years and restarted taking her medication since 2 months -Patient is diagnosed with kidney disease 2 months ago but did not see any lead software engineer or PCP since then -Came to hospital with complaints of vomitings and right-sided back pain radiating to the groin -Denies fever, burning micturition, hematuria but endorsed that she is having cloudy, foul-smelling urine since long time. -Labs significant for WBC 21.4, Hb 10.4, platelets 312, sodium 131, potassium 5.8, BUN 42, creatinine 2.7, procalcitonin 2.07. -Urine analysis showed turbid urine with 3+ proteinuria, 3+ glucosuria, 1+ blood, 6 RBC, 174 WBC, 3+ bacteria. -Abdomen/pelvis CT showed significantly currently scarred left kidney, very prominent bilateral perinephric stranding, consistent with acute pyelonephritis -Patient's baseline creatinine is 2 from 2019 and EGFR is around 31 -A1c on 05/23/2024 is 8.9 -25 OH Vit D is WNL, PTH is 110.5 on 05/24/2024 -Creatinine on 05/24, 2.8, BUN 39 Plan -Preliminary urinary culture showed GNR -Blood cultures showed no growth after 24hrs -Continue Zosyn [05/22- -Continue maintenance fluids -Avoid nephrotoxic medication and renally dose medications -Monitor urine output -Continue del toro catheterisation -Encouraged to take plenty of oral fluids -Recommended strict control of blood pressures and sugars # Anemia Likely nutritional versus anemia of CKD -Patient stated that she had decreased appetite and is taking marijuana to increase her appetite -Hb at the time of admission is 10.4, MCV 79, MCH 26.3 Plan -Ordered iron panel and ferritin levels -A dose of multivitamin is given -Will continue to monitor CBC #History of hypertension -Patient was started on amlodipine 5 Mg p.o. daily -Recommended to continue to monitor blood pressures -Titrate medications as needed. # Insulin-dependent diabetes mellitus # Anxiety/PTSD/depression -Rest of the medical conditions treated as per primary team Thank you for allowing us to involved in the care of patient Patient plan of care was discussed with the attending physician, Dr. Ben Childs, PGY1 Attending Provider Attestation/Addendum Patient seen and examined with resident physician Dr. Diaz. Note reviewed, agree with findings and recommendations. Creatinine still slightly elevated. Suspect patient has progressive diabetic nephropathy. She will be left with CKD stage III with uncontrolled diabetes and significant proteinuria. Urine protein/creatinine ordered. Potassium today seems to be better. Plan of care discussed with primary team
[2024-05-24] MEDS: Magnesium Sulfate 4 GM Ivpb 4 GM/50 ML BAG IV (10:12)
[2024-05-24 11:09] LABS: Ferritin 404 ng/mL (7.3-270.7); Iron 7 mcg/dL (50-170); Percent Iron Saturation 3 % (20-55); Total Iron Binding Capacity 223 mcg/dL (250-425); Unsaturated Iron Binding 216 (225-295)
--- NOTE | 2024-05-24 11:33 | PC.CC ---
Request from [employer]ED[employer] Leigh, for PA on Proterro Dial[employer] 3 Plus sensor. Submitted and approved until 05/24/25.
[2024-05-24] MEDS: MULTIVITAMIN INJ 10 ML in SODIUM CHLORIDE 0.9% 500 ML 500 ML 40 ML IV (11:57)
[2024-05-24] MEDS: GABAPENTIN 100 MG CAPSULE 200 MG PO ×2 (13:41→21:11)
--- NOTE | 2024-05-24 15:25 | ESPR_ITS ---
<Statement entered by Elijah Christy MD - 05/24/24 15:51> Patient was seen and examined at the bedside. Patient had marked improvement in her anxiety this morning. No acute overnight events were reported. Blood pressure was stable. Hemoglobin remained stable at 8.5. Kidney functions are worsening with BUN 39 creatinine 2.8. We are currently waiting on urine cultures. Patient's echocardiogram showed EF 60 to 65%. Blood cultures remain negative. Will continue with Zosyn and urology recommended to continue with antibiotics for now. Calabrese catheter was removed. Nephrology is following the case and recommended to continue with tight control of blood sugars given uncontrolled diabetes affecting patient's kidney. Urine protein creatinine ratio was not in nephrotic range however she continues to have worsening CKD. Will follow-up with urine cultures. All labs and orders were reviewed. I saw and examined the patient, and I agree with current management stated by Dr Benitez MD,PGY1. Plan of care was discussed with the attending physician and resident physician. Disclaimer: Despite multiple revisions, due to the dictation software being used, the document bellow may not be free of grammatical errors including phonetic/typographic errors. However, this does not deter from our commitment to providing health care in the patient's best interest in mind. Dr. Franky MD, PGY 2 Documentation for date of: 05/24/24 Subjective Subjective Interval history: No acute overnight events reported, pt is seen and examined at bedside this morning. Pt appears to be in a happy and good spirit mood. she feels motivated to take care of her health. In house dietitian set her up with continuos glucometer. vitals and labs are stable with the exception of creatinine mildly elevated. Iron panel findings are consistent with iron deficiency anemia, therefore will start the pt on ferrous sulfate. Nephrology and urology is following. Pt denies abdominal pain, flank pain or dysuria. Exam Vital Signs Temp Pulse Resp BP Pulse Ox O2 Del Method O2 Flow Rate 97.2 F 97 18 133/84 H 97 Nasal Cannula 1 05/24/24 12:00 05/24/24 12:00 05/24/24 12:00 05/24/24 12:00 05/24/24 12:00 05/24/24 04:00 05/23/24 16:00 Narrative Exam GENERAL: A&Ox3 . awake, pleasant female NEURO: no focal neurological deficits HEENT: Atraumatic, Normocephalic. mucous membranes moist. Eyes open, symmetrical, & clear HEART: Normal Heart Sounds LUNGS: Clear to auscultation with no wheezing or crackles. ABDOMEN: soft, non-distended, mildly tender to palpation, bowel sounds heard, no guarding or rebound tenderness SKIN: No Rash or ecchymoses EXTREMITIES: No edema, tenderness, able to move all 4 extremities, pedal pulses palpated Objective Labs 05/24/24 05:22 05/24/24 05:22 Labs: Laboratory Results - last 24 hr 05/23/24 05/24/24 15:06 05:22 WBC 8.5 RBC 3.18 L Hgb 8.5 L Hct 25.1 L MCV 79 L MCH 26.7 MCHC 33.9 RDW Std Deviation 39.5 Plt Count 260 Neut % (Auto) 67 Lymph % (Auto) 20 [place] % (Auto) 9 Eos % (Auto) 2 Baso % (Auto) 1 Neut # (Auto) 5.8 Lymph # (Auto) 1.7 [place] # (Auto) 0.8 Eos # (Auto) 0.2 Baso # (Auto) 0.0 Immature Gran # (Auto) 0.12 H Absolute Nucleated RBC 0.00 Immature Gran % 1 H Nucleated RBC % 0 Sodium 129 L 137 Potassium 5.3 H D 4.6 D Chloride 100 106 Carbon Dioxide 22.1 23.0 Anion Gap 7 8 BUN 36 H 39 H Creatinine 2.6 H 2.8 H Estim Creat Clear Calc 30.1 L 27.9 L eGFR 23 L 21 L BUN/Creatinine Ratio 14 14 Glucose 241 H D 133 H D Calculated Osmolality 275 285 Uric Acid 5.7 Calcium 8.4 9.1 Corrected Calcium 9.1 9.5 Phosphorus 3.7 Magnesium 1.6 Iron 7 L TIBC 223 L Iron Saturation 3 L Unsat Iron Binding 216 L Ferritin 404 H Total Bilirubin < 0.2 L 0.2 L AST 31 19 ALT 27 23 Alkaline Phosphatase 223 H D 227 H Total Protein 6.7 7.5 Albumin 3.1 L 3.5 Globulin 3.6 H 4.0 H Albumin/Globulin Ratio 0.9 L 0.9 L 25-OH Vitamin D Total 10.4 PTH Intact 110.5 H Quality Measures Quality Measures sepsis Current suspected stage: sepsis Possible source: genitourinary Blood cultures ordered: yes Antibiotic ordered: Yes Assessment & Plan Assessment Current Active Medications: Generic Name Dose Route Start Last Admin Trade Name Freq PRN Reason Stop Dose Admin Acetaminophen 650 mg 05/22/24 22:15 Acetaminophen 325 Mg Tablet PO 06/21/24 22:14 Q6H PRN Fever >100 or pain 1-3 Amlodipine Besylate 5 mg 05/23/24 12:40 05/24/24 08:51 Amlodipine Besylate 5 Mg Tablet PO 06/22/24 12:39 5 mg QDAY BRITNEY Administration Dextrose 25 ml 05/22/24 21:32 Dextrose 50%-Water Inj 50 Ml Syringe IV 06/21/24 21:31 Q15MIN PRN BG 50-70 responsive npo pt Dextrose 50 ml 05/22/24 21:32 Dextrose 50%-Water Inj 50 Ml Syringe IV 06/21/24 21:31 Q15MIN PRN BG <50 OR BG <70 & pt unresponsive Docusate Sodium 100 mg 05/24/24 09:00 05/24/24 08:51 Docusate Sod 100 Mg Capsule PO 06/23/24 08:59 100 mg QDAY BRITNEY Administration Protocol Gabapentin 200 mg 05/24/24 14:00 05/24/24 13:41 Gabapentin 100 Mg Capsule PO 06/23/24 13:59 200 mg TID BRITNEY Administration Protocol Glucagon 1 mg 05/22/24 21:32 Glucagon Inj 1 Mg Vial IM Q15MIN PRN BG <70, and no IV access Heparin Sodium (Porcine) 5,000 unit 05/22/24 22:15 05/24/24 08:52 Heparin Sod Inj 5000 Unit/Ml Vial SC 06/05/24 22:14 5,000 unit Q12HR BRITNEY Administration Sodium Chloride 1,000 mls @ 75 mls/hr 05/22/24 22:15 05/24/24 04:00 Ns IV 06/21/24 22:14 75 mls/hr .[id number] BRITNEY Administration Piperacillin/Tazobactam/Dextrose 2.25 gm in 50 mls @ 100 mls/hr 05/23/24 12:00 05/24/24 12:07 Zosyn IV 05/30/24 11:59 100 mls/hr Q6HR BRITNEY Administration Multivitamins/Minerals 10 ml/ 510 mls @ 40 mls/hr 05/24/24 10:45 05/24/24 11:57 Sodium Chloride IV 05/24/24 23:29 40 mls/hr X1 ONE Administration Insulin Human Lispro 0 unit 05/23/24 07:30 05/24/24 12:13 Insulin Lispro (Admelog) 1 Unit/0.01 Ml Unit SC 06/22/24 07:29 2 unit AC BRITNEY Administration Protocol Metoclopramide HCl 5 mg 05/23/24 10:50 Metoclopramide 5 Mg Tablet PO 06/21/24 22:14 Q6H PRN NAUSEA OR VOMITING Ondansetron HCl 4 mg 05/23/24 03:13 Ondansetron Inj 2 Mg/Ml Inj 2 Ml IV 06/22/24 03:12 Q6HR PRN NAUSEA OR VOMITING Protocol Oxycodone/Acetaminophen 1 tab 05/23/24 03:01 Oxycodone/Apap 5/325 Tablet PO 05/28/24 02:59 Q6H PRN PAIN 4-6 Pantoprazole Sodium 20 mg 05/24/24 09:00 05/24/24 08:51 Pantoprazole 20 Mg Tablet PO 06/23/24 08:59 20 mg DAILY BRITNEY Administration Pharmacy Consult 1 each 05/23/24 07:55 Pharmacy Renal Dose Adjustment 1 Ea XX 06/22/24 07:54 PRN PRN CONSULT Quetiapine Fumarate 50 mg 05/23/24 12:40 05/24/24 13:42 Quetiapine Fumarate 25 Mg Tablet PO 06/22/24 12:39 50 mg TID BRITNEY Administration Plan Poonam is a 44 y/o female with PMHx of hypertension, insulin-dependent type 2 diabetes, chronic CORTEZ, diabetic gastroparesis, substance abuse, who is admitted for sepsis secondary to emphysematous cystitis. #Sepsis secondary to -resolved #Emphysematous cystitis #Acute Pyelonephritis -SIRS criteria 2/4: tachycardia, leukocytosis with acute sepsis-related organ dysfunction as evidence by CARLY -qSOFA: 0 points, lactate 1.4 -CT abdomen pelvis shows emphysematous cystitis -CT also shows some bladder wall thickening up to 15mm, concerning for possible cancer will need to see outpatient urology -Given Sepsis Bolus 1.8 L -Urine analysis shows 174 white cells, positive bacteria, positive leukocyte esterase, however patient is not complaining of any urinary symptoms Plan: -Zosyn 3.375 mg Q8H IV -urine cultures grew GNR -Blood cultures no growth in 24 hrs -Pain control -Antiemetics -Tylenol for antipyretic -renal ultrasound ordered -microalbumin/creatinine ratio 974 -Urology consult placed, appreciate recommendations #Acute kidney injury on CKD stage IIIb -progressing to CKD stage lV #Elevated PTH #Hyperkalemia- resolved DDx: Prerenal versus ATN versus obstructive -Patient's creatinine seems to be 2.0 for the past couple with however, patient's BUN and creatinine today is 47 and 2.7 ratio appears to be 17. -Could be nephrotoxic component or prerenal component, however patient will need some fluids and considering patient has CKD will give a gentle rate -Patient does not take metformin anymore -on admission patient's potassium 5.8, given 5 units of insulin in 30mg Kayexalate -PTH 110.5 in the setting of CKD Plan: -NS maintenance 75 cc/hour -Strict I's and O's -microalbumin/creatinine ratio 974 -Nephrology consult placed, appreciate recommendations #microcytic anemia #Iron deficiency anemia -Hgb 8.5, Hct 25.0 -Iron panel: Iron 7, TIBC 223, Iron sat 3%, unsat iron binding 216, ferritin 404 -no signs of active bleeding, anemia is likely in the setting of CKD -Will continue to monitor daily CBC -ferrous sulfate 325 QOD #History of hypertension -Bp on admission is stable -Holding home lisinopril in setting of CARLY -Will adjust blood pressure as needed #Diabetes mellitus type II, insulin-dependent #History of diabetic gastroparesis -A1c on 05/23 8.9 -Sliding scale insulin -Hypoglycemic protocol in place -Blood sugar checks with meals -Reglan 10 mg every 6 hours as needed -Resumed home gabapentin for 400 mg 3 times daily #History of CORTEZ #Polysubstance abuse -Pt has 15 year history of meth use and uses eadable THC regularly -Former heavy alcohol use Urine tox is positive for meth, opiates and marijuan Plan: -Resumed home Seroquel 25 mg 3 times daily -Hydroxyzine 50 mg every 6 hours as needed -Due to meth use history, will order echo #Health Maintenance Disposition: [facility] for IV antibiotics for emphysematous cystitis and acute pyelonephritis DVT prophylaxis: Heparin GI prophylaxis: None indicated at this time Diet: Renal CODE STATUS: DNR/DNI Assessment and plan discussed with my senior resident Dr. Christy & attending physician Dr. Heather Marquis (PGY-1)- Internal medicine resident Attending Provider Attestation/Addendum I have discussed and was present for the essential components of the history, physical examination, diagnosis, and treatment plan with the resident. I agree with the patient's care as documented by the resident and amended herein by me. Erci Romero DO. Although this document has been carefully reviewed, there may still be some phonetic and other typographical errors. These errors are purely grammatical due to imperfections in the software program and should not be construed in any way to compromise the substance of the patient's medical care during this visit.
[2024-05-24] MEDS: FERROUS SULF 325 MG TABLET PO (16:30)
[2024-05-25] VITALS: PULSE 88
[2024-05-25 04:00] VITALS: BP 157/96; PULSE 86; RESP 16; TEMP 36.4; O2SAT 96
[2024-05-25] MEDS: GABAPENTIN 100 MG CAPSULE 200 MG PO (05:09)
[2024-05-25] MEDS: PIPER/TAZO 2.25 GM 2.25 GM/50 ML BAG IV (05:09)
[2024-05-25] MEDS: QUEtiapine FUMARATE 25 MG TABLET 50 MG PO (05:09)
[2024-05-25 06:23] LABS: Basophils % (Auto) 0 % (0-2.5); Eosinophils # (Auto) 0.2 Thou/mm3 (0.0-0.5); Eosinophils % (Auto) 2 % (0-10); Hematocrit 24.1 % (36.0-46.0); Immature Granulocytes % (Auto) 1 % (0-0); Immature Granulocytes Auto 0.07 Thou/mm3 (0.00-0.00); Lymphocytes # (Auto) 1.5 Thou/mm3 (1.0-4.8); Lymphocytes % (Auto) 22 % (10-50); Mean Corpuscular HGB Conc 33.2 g/dl (31.0-37.0); Mean Corpuscular Hemoglobin 26.5 pg (25.0-35.0); Mean Corpuscular Volume 80 fL (80-100); Monocytes # (Auto) 0.6 Thou/mm3 (0.0-0.8); Monocytes % (Auto) 8 % (0-12); Neutrophils # (Auto) 4.5 Thou/mm3 (1.8-7.7); Neutrophils % (Auto) 66 % (37-80); Nucleated Red Blood Cell % 0 /100 WBC (0); Platelet Count 243 Thou/mm3 (140-440); RDW Standard Deviation 39.5 fL (36.4-46.3); Red Blood Count 3.02 Miln/mm3 (4.00-5.20); White Blood Count 6.8 Thou/mm3 (3.6-11.0)
[2024-05-25 06:46] LABS: Alanine Aminotransferase 13 U/L (10-49); Albumin, Serum 3.1 gm/dL (3.5-5.0); Albumin/Globulin Ratio 0.8 (1.2-2.2); Alkaline Phosphatase 198 U/L (46-116); Anion Gap 7 (7-16); Aspartate Amino Transferase 10 U/L (0-34); BUN/Creatinine Ratio 14 Ratio (12-20); Bilirubin,Total < 0.2 mg/dL (0.3-1.2); Blood Urea Nitrogen 33 mg/dL (9-23); Calcium 8.6 mg/dL (8.3-10.6); Calcium (Corrected) 9.3 mg/dL (8.5-10.1); Chloride 105 mMol/L (98-107); Creatinine (Component) 2.4 mg/dL (0.6-1.3); Estimated Creatinine Clearance 32.6 mL/min (>60); Globulin 3.7 gm/dL (2.3-3.5); Glucose 195 mg/dL (74-106); Osmolality,Calculated 278 (275-295); Potassium 4.6 mMol/L (3.4-5.1); Sodium 133 mMol/L (136-145); Total Protein 6.8 gm/dL (5.7-8.2); eGFR 25 See Note
[2024-05-25] MEDS: INSULIN LISPRO (AdmeLOG) 1 UNIT/0.01 ML UNIT SC (07:36)
[2024-05-25 08:00] VITALS: BP 160/101; PULSE 84; PULSE 85; RESP 18; TEMP 36.2; O2SAT 94
[2024-05-25] MEDS: DOCUSATE SOD 100 MG CAPSULE PO (08:36)
[2024-05-25 08:37] VITALS: BP 148/97; PULSE 85
[2024-05-25] MEDS: amLODIPine BESYLATE 5 MG TABLET PO (08:37)
[2024-05-25] MEDS: PANTOPRAZOLE 20 MG TABLET PO (08:39)
[2024-05-25] MEDS: HEPARIN SOD INJ 5000 UNIT/ML VIAL SC (08:40)
--- NOTE | 2024-05-25 11:28 | ESPR_ITS ---
Documentation for date of: 05/25/24 Subjective Subjective Interval history: Ms. Bryson is a 44-year-old female with past medical history of hypertension, insulin-dependent type 2 diabetes mellitus, diabetic gastroparesis, kidney disease, anxiety, PTSD, depression, substance abuse presented to the hospital with chief complaints of vomiting and back pain since 2 days. To begin with, patient stopped taking medications and not following with a doctor since 3 years as she was depressed. 2 months ago, she went to [facility] where she was diagnosed as having kidney problems and again started taking her medications. Since then, patient noticed cloudy and foul-smelling urine, but never followed up with any associate financial representative. Patient was apparently normal ago 2 days back, then developed vomitings-multiple episodes in a day and not able to eat or drink anything. The next day vomitings subsided but patient started to develop severe back pain on the right side with radiation to the groin and rated 10 out of 10 on pain scale. Also endorsed that she had 2-3 diarrheal episode at that time. As the pain did not subsided and continues to progress, patient was brought to the hospital by her boyfriend. Denies fever, burning micturition, shortness of breath, pedal edema, hematuria. ED Course: -Initial vitals were blood pressure 121/82 mmHg, pulse rate 112 bpm, respiratory rate 18/min, temperature 98.6 ?F, SpO2 98% with room air -Labs significant for WBC 21.4, Hb 10.4, platelets 312, sodium 131, potassium 5.8, BUN 42, creatinine 2.7, procalcitonin 2.07. Urine analysis showed turbid urine with 3+ proteinuria, 3+ glucosuria, 1+ blood, 6 RBC, 174 WBC, 3+ bacteria.Abdomen/pelvis CT showed significantly currently scarred left kidney, very prominent bilateral perinephric stranding, consistent with acute pyelonephritis -In the ED, patient was given ceftriaxone, pain medications and IV fluids -Patient was admitted for sepsis secondary to acute pyelonephritis 05/24/2024 Patient was seen and examined at the bedside Patient was resting comfortably. Reported that her pain is decreasing. No acute overnight events. Labs showed sodium 137, potassium 4.6, BUN 39, creatinine 2.8 Urine became less cloudy Continue maintenance IV fluids and Calabrese catheterization As patient is able to make adequate amount of urine, continue to monitor renal functions for now 05/25/2024 patient currently seen in medical floor. Resting comfortably. BUN, creatinine stable. Suggested to follow-up with me in the outpatient setting. Review of Systems Review of Systems Narrative Review of Systems: Denies any chest pain, shortness of breath Exam Vital Signs Temp Pulse Resp BP Pulse Ox O2 Del Method O2 Flow Rate 36.2 C 85 18 148/97 H 94 L Room Air 1 05/25/24 08:00 05/25/24 08:37 05/25/24 08:00 05/25/24 08:37 05/25/24 08:00 05/25/24 04:00 05/23/24 16:00 Narrative Exam GENERAL APPEARANCE: Patient seems to be comfortable, adequately hydrated and nourished. HEENT: EOMI, PERRLA NECK: Neck supple, no JVD or bruit CARDIOVASCULAR: Heart regular, no murmurs LUNGS/CHEST: Chest clear to auscultation. No rales, rhonchi, wheezing ABDOMEN: Soft, nontender, nondistended. No masses. Normal bowel sounds. EXTREMITIES: No edema, clubbing or cyanosis. SKIN: Skin exam normal without any rashes MUSCULOSKELETAL: Musculoskeletal exam normal PSYCHIATRIC: Normal mood, affect LYMPHATICS: No lymphadenopathy noted NEUROLOGICAL : No neurological deficits Objective Labs 05/25/24 05:50 05/25/24 05:50 Labs: Laboratory Results - last 24 hr 05/25/24 05:50 WBC 6.8 RBC 3.02 L Hgb 8.0 L Hct 24.1 L MCV 80 MCH 26.5 MCHC 33.2 RDW Std Deviation 39.5 Plt Count 243 Neut % (Auto) 66 Lymph % (Auto) 22 [place] % (Auto) 8 Eos % (Auto) 2 Baso % (Auto) 0 Neut # (Auto) 4.5 Lymph # (Auto) 1.5 [place] # (Auto) 0.6 Eos # (Auto) 0.2 Baso # (Auto) 0.0 Immature Gran # (Auto) 0.07 H Absolute Nucleated RBC 0.00 Immature Gran % 1 H Nucleated RBC % 0 Sodium 133 L Potassium 4.6 Chloride 105 Carbon Dioxide 21.0 Anion Gap 7 BUN 33 H Creatinine 2.4 H Estim Creat Clear Calc 32.6 L eGFR 25 L BUN/Creatinine Ratio 14 Glucose 195 H D Calculated Osmolality 278 Calcium 8.6 Corrected Calcium 9.3 Phosphorus 3.0 Magnesium 2.0 Total Bilirubin < 0.2 L AST 10 ALT 13 Alkaline Phosphatase 198 H D Total Protein 6.8 Albumin 3.1 L Globulin 3.7 H Albumin/Globulin Ratio 0.8 L Assessment & Plan Additional Assessment & Plan Additional Plan: 44-year-old female with past medical history of hypertension, insulin-dependent type 2 diabetes mellitus, diabetic gastroparesis, kidney disease, anxiety, PTSD, depression, substance abuse presented to the hospital with chief complaints of vomiting and back pain since 2 days admitted in the hospital for sepsis, acute on chronic kidney disease secondary to pyelonephritis. # Acute on chronic kidney disease, IIIb -likely prerenal vs renal [ATN] # Secondary to acute pyelonephritis , Emphysematous cystitis # Underlying uncontrolled insulin dependent diabetes mellitus -Patient is in compliant with her medication since 3 years and restarted taking her medication since 2 months -Patient is diagnosed with kidney disease 2 months ago but did not see any associate financial representative or PCP since then -Came to hospital with complaints of vomitings and right-sided back pain radiating to the groin -Denies fever, burning micturition, hematuria but endorsed that she is having cloudy, foul-smelling urine since long time. -Labs significant for WBC 21.4, Hb 10.4, platelets 312, sodium 131, potassium 5.8, BUN 42, creatinine 2.7, procalcitonin 2.07. -Urine analysis showed turbid urine with 3+ proteinuria, 3+ glucosuria, 1+ blood, 6 RBC, 174 WBC, 3+ bacteria. -Abdomen/pelvis CT showed significantly currently scarred left kidney, very prominent bilateral perinephric stranding, consistent with acute pyelonephritis -Patient's baseline creatinine is 2 from 2019 and EGFR is around 31 -A1c on 05/23/2024 is 8.9 -25 OH Vit D is WNL, PTH is 110.5 on 05/24/2024 -Creatinine on 05/24, 2.8, BUN 39 Plan -Patient is going to be discharged on p.o. antibiotics. # Anemia Likely nutritional versus anemia of CKD -Patient stated that she had decreased appetite and is taking marijuana to increase her appetite -Hb at the time of admission is 10.4, MCV 79, MCH 26.3 Plan -Ordered iron panel and ferritin levels -A dose of multivitamin is given -Will continue to monitor CBC #History of hypertension -Patient was started on amlodipine 5 Mg p.o. daily -Recommended to continue to monitor blood pressures -Titrate medications as needed. # Insulin-dependent diabetes mellitus # Anxiety/PTSD/depression -Rest of the medical conditions treated as per primary team Suggested to follow-up with me once discharged.
--- NOTE | 2024-05-25 13:29 | ESDS_ITS ---
Planned Discharge Date 05/25/24 DS: Providers Provider Date of admission: 05/22/24 22:15 Primary care physician: Irma Ponce PA-C Admitting Provider: Mary Morris MD Attending Provider on Admission: Jasbir Romero DO Consults: 05/23/24 09:47 Referral Registered Dietitian Routine Comment: 05/23/24 09:49 Consult to Urology Routine Comment: For emphysematous cystitis Consulting Provider: Tushar Yuen 05/23/24 10:44 Consult to Nephrology Urgent Comment: emphyematous pyelo, caroline on ckd 3b Consulting Provider: Amarilis Contreras Attending Provider on DC: Jef Marquis MD Discharging Provider: Jef Marquis MD DS: Diagnosis Problem List Completed Was Problem List Reviewed/Reconciled?: Yes Hospital Course Hospital Course Hospital course: Ms. Bryson is a 44-year-old female with past medical history significant for hypertension, uncontrolled type 2 diabetes, history of diabetic gastroparesis, generalized anxiety disorder and polysubstance abuse presented to [facility] ED on 05/22/2024 complaining of abdominal pain. Patient was admitted to the hospital for sepsis secondary to emphysematous cystitis and acute pyelonephritis evident on CT of abdomen pelvis. Patient was started on IV antibiotics with Zosyn and urologist Dr. Yuen was consulted. Urine cultures came back positive for Klebsiella pneumoniae. During the hospital admission patient was also found to have worsening acute kidney injury in the setting of chronic kidney disease stage IIIb which is likely progressing to stage IV. Nephrology was consulted who recommended strict follow-up outpatient with parking attendant as patient's chronic kidney disease is worsening and will need routine follow-up. Patient also is found to have uncontrolled type 2 diabetes with a hemoglobin A1c of 8.9. Patient was started on insulin sliding scale and recommended to strict follow-up with primary care physician to have better control of diabetes. Patient was provided with diabetic education as well as dietary consult was placed. Patient was given and educated on continuous glucometer Freestyle diallo 3 to monitor daily blood sugars in efforts to have better control of her daily blood sugars. Patient has history of polysubstance abuse and counseled heavily against use of methamphetamines, opioids and marijuana. In light of patient long history of methamphetamine use echocardiogram is ordered during hospitalization found to have EF EF 60-65% with diastolic dysfunction 1. Patient is very anxious to stay in the hospital, patient is clinically and hemodynamically stable to be discharged home to self- care. Patient is counseled on completing the treatment of antibiotics and if her symptoms worsen or recur to promptly return to the ED. Discharge Recommendations -Follow up with primary care physician within 2 weeks -You have been prescribed antibiotics for additional 9 days to be completed -Continue all your medications as prescribed -Continue using you Social IQ (Social Influence Quotient)os glucometer to monitor blood sugars -Follow up with a parking attendant with in 1 week -Promptly return to the ED if symptoms reoccur or worsen Hospitalization Diagnosis #Sepsis secondary to -resolved #Emphysematous cystitis #Acute Pyelonephritis #Acute kidney injury on CKD stage IIIb -progressing to CKD stage lV #Elevated PTH #Hyperkalemia- resolved #microcytic anemia #Iron deficiency anemia #History of hypertension #Diabetes mellitus type II, insulin-dependent #History of diabetic gastroparesis #History of CORTEZ #Polysubstance abuse Time Spent with Patient Time attestation: Total time spent providing and/or coordinating discharge services: Time spent: Greater than 30 minutes Exam Vital Signs Temp Pulse Resp BP Pulse Ox O2 Del Method O2 Flow Rate 97.2 F 85 18 148/97 H 94 L Room Air 1 05/25/24 08:00 05/25/24 08:37 05/25/24 08:00 05/25/24 08:37 05/25/24 08:00 05/25/24 04:00 05/23/24 16:00 Narrative Exam GENERAL: A&Ox3 . awake, tearful anxious female NEURO: no focal neurological deficits HEENT: Atraumatic, Normocephalic. mucous membranes moist. Eyes open, symmetrical, & clear HEART: Normal Heart Sounds LUNGS: Clear to auscultation with no wheezing or crackles. ABDOMEN: soft, non-distended, mildly tender to palpation, bowel sounds heard, no guarding or rebound tenderness SKIN: No Rash or ecchymoses EXTREMITIES: No edema, tenderness, able to move all 4 extremities, pedal pulses palpated Discharge Plan Plan Patient Disposition: HOME (Self Care) Disposition Comment: Stable Patient condition on transfer: Stable Care Plan Goals: -Follow up with primary care physician within 2 weeks -You have been prescribed antibiotics for additional 9 days to be completed -Continue all your medications as prescribed -Continue using you continuos glucometer to monitor blood sugars -Follow up with a parking attendant with in 1 week -Promptly return to the ED if symptoms reoccur or worsen Prescriptions/Referrals Prescriptions/Med Rec: New (DME) FreeStyle Diallo 3 Plus Sensor Device See Rx Instructions .Route Qty: 1 6RF Rx Instructions: As directed levofloxacin 750 mg tablet 750 mg PO QDAY 11 Days Qty: 11 0RF gabapentin 600 mg tablet 200 mg PO TID Qty: 30 0RF sitagliptin 25 mg tablet 25 mg PO QDAY Qty: 90 0RF Continued quetiapine [Seroquel] 25 mg Tablet 25 mg PO TID lisinopril 20 mg Tablet 20 mg PO QDAY metoclopramide HCl 10 mg tablet 10 mg PO BID PRN (Reason: nausea and vomiting) Qty: 30 0RF docusate sodium 100 mg capsule 100 mg PO BID Patient Comments: take 1 capsule by mouth twice a day Discontinued metformin 1,000 mg Tablet 1,000 mg PO BID ondansetron HCl [Zofran] 4 mg tablet 4 mg PO Q8H Qty: 20 0RF gabapentin 400 mg capsule 400 mg PO TID Patient Comments: take 1 capsule by mouth three times a day Referrals: Irma Ponce PA-C [Primary Care Provider] - Tushar Yuen MD [Physician] - Amarilis Contreras MD [Physician] - Patient/Caregiver Discharge Instructions Education Materials: Long-Term Complications of Diabetes, Healthy Meals for Diabetes, Diabetes and Kidney Disease Print Language: Burmese Stand Alone Forms: Emily Award Info., Patient Portal Info Letter Discharge Order Discharge Orders: Discharge (Routine); Ordered 05/25/24 Ordered By: Jef Marquis Quality Discharge Quality Measures VTE prophylaxis Attestestation MD Attestation I have discussed and was present for the essential components of the discharge history, physical examination, diagnosis, and discharge treatment plan with the resident. I agree with the patient's discharge care as documented by the resident and amended herein by me. Eric Romero DO. The patient understood all discharge instructions, all questions were answered satisfactorily. The patient was instructed to return to the Emergency Department is symptoms worsened or persisted. Patient was stable, afebrile, tolerating p.o. intake and ambulatory times discharge home. Patient discharged on a course of levofloxacin, see details above, we did emphasize importance of fully completing the antibiotic course and refraining from drug use, the patient understood, all questions answered satisfactorily. Although this document has been carefully reviewed, there may still be some phonetic and other typographical errors. These errors are purely grammatical due to imperfections in the software program and should not be construed in any way to compromise the substance of the patient's medical care during this visit.
--- NOTE | 2024-05-28 09:30 | ESCONSULT_ITS ---
RE: MEENAKSHI DESAI : 1980 DATE OF CONSULTATION: 05/24/2024 Location of the patient is 371, bed A My board operator was RNKavita. The patient is seen. Chart is reviewed. Consult is dictated. REASON FOR CONSULTATION: 1. Complicated urinary tract infection. 2. Recurrent urinary tract infection. COMORBID CONDITIONS: 1. Hypertension. 2. Insulin-dependent diabetes mellitus type 2. 3. Chronic CORTEZ, diabetic gastroparesis, substance abuse. HISTORY OF PRESENT ILLNESS: This is a 44-year-old female. This patient came to the emergency room. She has a 2-day history of backache radiating to the lower abdomen. Pain is 4/10 with pain scale. She has a history of vomiting 3 days prior to coming to the emergency room. There was no blood in the vomitus. The patient had a history of urinary tract in the past and she has been treated by the PCP with antibiotics. At this time, I do not have any urinary culture report on the patient. Urine for culture and sensitivity has been sent. The patient was in the emergency room about a month ago. PAST SURGICAL HISTORY: Ovarian cyst removal, partial oophorectomy, and tubal ligation. ALLERGY: WALNUT CAUSES ANGIOEDEMA. CURRENT MEDICATIONS: 1. Insulin. 2. Reglan. 3. Lisinopril. 4. Gabapentin. FAMILY HISTORY: Mother is on dialysis and she has a significant family history of diabetes mellitus. No history of coronary artery disease or stroke. NARRATIVE REVIEW OF THE SYSTEM: Constitutional: No fever, chills, fatigue, weakness or weight loss. HEENT: No eye pain, vision loss, ear pain. Cardiovascular: No chest pain. Respiratory: No cough or shortness of breath. GI: No NVD. Positive abdominal pain and vomiting. Musculoskeletal: Positive back pain. Psychiatric: Positive for anxiety. No depression. PHYSICAL EXAMINATION: VITAL SIGNS: Temperature is 98.6, pulse is 100 per minute, respirations 20, blood pressure 129/98. GENERAL: Condition is satisfactory. The patient is not in acute distress. She is lying comfortably in the bed. VARIOUS LABS: WBC is 21.4, hemoglobin is 10.4, HCT 31.2, platelet count is 312. Electrolytes, serum sodium 131, potassium 5.8, chloride 101, CO2 21.4, BUN 42, creatinine is 2.7. Urine is infected. IMAGING: She has a CAT scan done. This revealed emphysematous cystitis/pyelonephritis and CT scan also shows thickening of bladder wall. ASSESSMENT: 1. Acute kidney injury and chronic kidney disease stage IIIB. 2. Hyperkalemia. 3. Diabetic mellitus type 2, insulin dependent. 4. Polysubstance abuse including meth and THC. RECOMMENDATION: 1. Continue with catheter drainage. 2. Treat with antibiotics according to the culture sensitivity. 3. Follow-up appointment in urology office. She is going to need a cystoscopic examination and I will provide her the literature regarding prevention of UTI in the future. All above issues were discussed with the patient in detail. Questions were answered to the patient's satisfaction. DT: 08:48:16 TT: 11:06:00 Ref: [id number] - TID: [id number]
== END 2024-05-25 11:22 | disposition home or self-care (01) | DRG 720 ==
LOC: SERX 22:09 → SERHOLD 22:41 → S3SX 23:21
PROVIDERS: Nurse Practitioner Family; Student in an Organized Health Care Education/Training Program; Admitting Provider Internal Medicine; Emergency Provider Emergency Medicine; PCP Physician Assistant; Visit Provider Student in an Organized Health Care Education/Training Program
DX: A41.89 Other specified sepsis (principal); R65.20 Severe sepsis without septic shock; N18.32 Chronic kidney disease, stage 3b; I12.9 Hypertensive chronic kidney disease with stage 1 through stage 4 chronic kidney disease, or unspecified chronic kidney disease; N30.80 Other cystitis without hematuria; K31.84 Gastroparesis; F41.1 Generalized anxiety disorder; F15.10 Other stimulant abuse, uncomplicated; E11.43 Type 2 diabetes mellitus with diabetic autonomic (poly)neuropathy; F12.10 Cannabis abuse, uncomplicated; F43.10 Post-traumatic stress disorder, unspecified; F32.A Depression, unspecified; E11.65 Type 2 diabetes mellitus with hyperglycemia; D50.9 Iron deficiency anemia, unspecified; E11.22 Type 2 diabetes mellitus with diabetic chronic kidney disease; E87.5 Hyperkalemia; N17.9 Acute kidney failure, unspecified; R79.89 Other specified abnormal findings of blood chemistry; N10 Acute pyelonephritis; D63.1 Anemia in chronic kidney disease; Z79.4 Long term (current) use of insulin; Z79.84 Long term (current) use of oral hypoglycemic drugs; Z79.899 Other long term (current) drug therapy; Z66 Do not resuscitate; B96.1 Klebsiella pneumoniae [K. pneumoniae] as the cause of diseases classified elsewhere
CPT/HCPCS: 36415; 74176; 76705; 76770; 80053; 80061; 80069; 80307; 81001; 81025; 82043; 82306; 82436; 82570; 82728; 83036; 83540; 83550; 83605; 83690; 83735; 83970; 84100; 84133; 84145; 84300; 84443; 84484; 84550; 85025; 85610; 85730; 87040; 87077; 87086; 87186; 93005; 93225; 93306; 96361; 96365; 96372; 96375; 99285; J0612; J0696; J1643; J1815; J2270; J2543; J3475; J3490; J7030; J7040; J7050; J7120; Q0162; A9270

== ENCOUNTER 2024-06-11 09:26 | Emergency (ER) | payer MEDICAID, SELFPAY ==
[2024-06-11 09:32] VITALS: BP 222/141; PULSE 111; RESP 24; O2SAT 97
[2024-06-11 09:41] VITALS: PULSE 115; RESP 22; O2SAT 98
[2024-06-11] MEDS: HALOPERIDOL LACT INJ 5 MG/ML VIAL 10 MG IM (10:00)
[2024-06-11] MEDS: DiphenhydrAMINE INJ 50 MG/ML VIAL IV ×2 (10:01→14:50)
[2024-06-11] MEDS: SODIUM CHLORIDE 0.9% 1000 ML 1,000 ML 999 ML IV ×2 (10:06→14:50)
--- NOTE | 2024-06-11 10:06 | PD.EDABDPN ---
ED Abdominal Pain RME/HPI General Chief Complaint: Abdominal Pain Stated complaint: MENTAL EVAL/ STOMACH PAIN Time seen by provider: 06/11/24 09:35 Arrival date/time: 06/11/24 09:26 RME / HPI RME / HPI narrative: DR. GALICIA MAIN ED EVALUATION: 44 year old female with past medical history significant for hypertension, insulin-dependent type 2 diabetes mellitus, diabetic gastroparesis, kidney disease, anxiety, PTSD, depression, methamphetamine abuse, marijuana abuse, and alcohol abuse presents to the Emergency Department [facility] with complaints of full body pain, nausea and vomiting. She came in screaming and vomiting at the same time. No other symptoms reported at this time. She also admits to using methamphetamine yesterday and not taking her medications for 2 days. Related Data Home Medications ?Medication ?Instructions ?Recorded ?Confirmed lisinopril 20 mg tablet 20 mg PO QDAY 07/20/17 05/22/24 quetiapine 25 mg tablet (Seroquel) 25 mg PO TID 07/20/17 05/23/24 docusate sodium 100 mg capsule 100 mg PO BID 05/22/24 05/23/24 Previous Rx's ?Medication ?Instructions ?Recorded metoclopramide HCl 10 mg tablet 10 mg PO BID PRN nausea and 04/01/24 vomiting #30 tabs blood-glucose sensor (FreeStyle #1 ea 05/24/24 Diallo 3 Plus Sensor device) gabapentin 600 mg tablet 200 mg (0.3333 x 600 mg) PO TID 05/25/24 #30 tabs sitagliptin 25 mg tablet 25 mg PO QDAY #90 tabs 05/25/24 ondansetron 4 mg disintegrating 4 mg PO Q8H PRN nausea and 06/11/24 tablet vomiting #10 tabs Allergies Allergy/AdvReac Type Severity Reaction Status Date / Time walnut Allergy Severe Swelling Verified 05/22/24 15:57 of Lip/Tongue/Throat Review of Systems Review of Systems Systems Reviewed: All systems reviewed, normal except as documented Past Medical History Past Medical History CARDIAC: Positive Hypertension RESPIRATORY: Positive Pneumonia GASTROINTESTINAL: Positive Gastrointestinal Disorders ENDOCRINE: Positive Diabetes Mellitus Type 2 PSYCHO/SOCIAL: Positive Schizophrenia and Anxiety Social History SMOKING STATUS: Never smoker SUBSTANCE USE: does not use ALCOHOL: Never ED Exam Narrative Physical exam: GENERAL APPEARANCE: AxOx4, she came in screaming and vomiting at the same time. HEENT: NC, AT. MMM. EOMI, clear conjunctiva, oropharynx clear. NECK: Supple without lymphadenopathy. No stiffness or restricted ROM. HEART: Normal rate and regular rhythm, normal S1/S1, no m/r/g LUNGS: CTAB, moving air well. No crackles or wheezes are heard. ABDOMEN: Soft, nontender, nondistended with good bowel sounds heard. BACK: No midline C/T/L spine pain or deformity, No CVAT, no obvious deformity. EXTREMITIES: Without cyanosis, clubbing or edema. MUSCULOSKELETAL: FROM of all major joints, no chest tenderness NEUROLOGICAL: Grossly nonfocal. Alert and oriented, moving all 4 extremities. CN not formally tested but appear grossly intact. Observed to ambulate with normal gait. Skin: Warm and dry without any rash. Course Quality Measures none Orders Category Date Time Status Alcohol, Urine Stat Lab 06/11/24 13:20 Completed CBC Stat Lab 06/11/24 10:03 Completed CMP [Comprehensive Metabolic Panel] Stat Lab 06/11/24 11:18 Completed DiphenhydrAMINE INJ [Benadryl Inj] Med 06/11/24 09:39 Discontinued 50 mg IV X1 ONE DiphenhydrAMINE INJ [Benadryl Inj] Med 06/11/24 13:00 Discontinued 50 mg IV X1 ONE Haloperidol Lactate [Haldol Inj] Med 06/11/24 09:35 Discontinued 10 mg IM X1 ONE Ketorolac Inj [Toradol Inj] Med 06/11/24 13:00 Discontinued 15 mg IVP X1 ONE Metoclopramide Inj [Reglan Inj] Med 06/11/24 13:00 Discontinued 10 mg IV X1 ONE Sodium Chloride 0.9% 1000 ml [Ns] 1,000 ml Med 06/11/24 09:37 Discontinued IV 999 mls/hr Sodium Chloride 0.9% 1000 ml [Ns] 1,000 ml Med 06/11/24 12:29 Discontinued IV 999 mls/hr Reevaluation(s) Reevaluation #1: Patient tolerated juice well and feels better. Patient remains clinically stable throughout the emergency department visit. Re-assessment at the time of disposition demonstrates that the patient is in no acute distress. We reviewed all the results, analysis, and treatment plans. Patient is amenable to discharge. Strict return precautions were outlined. Patient was discharged in stable condition. Time: 15:50 Vital Signs Vital signs: Vital Signs Pulse Rate 111 H 06/11/24 09:32 Respiratory Rate 24 H 06/11/24 09:32 Blood Pressure 222/141 H 06/11/24 09:32 Pulse Oximetry (%) 97 06/11/24 09:32 Oxygen Delivery Method Aerosol Mask 06/11/24 09:32 Abdominal Pain MDM MDM Narrative MDM Narrative:: I, Brie Greene am scribing for and in the presence of Dr. Galicia. Patient data External records reviewed:: EMS form Clinical information provided by:: patient and EMS Social determinants that could affect healthcare access:: other (specify) (methamphetamine abuse, marijuana abuse, and alcohol abuse) Patient has the following chronic illnesses:: hypertension, insulin-dependent type 2 diabetes mellitus, diabetic gastroparesis, kidney disease, anxiety, PTSD, depression, methamphetamine abuse, marijuana abuse, and alcohol abuse How is presenting disease/condition affected by chronic disease/condition?: exacerbated by Evaluation data The following diagnostics were reviewed and interpreted by me:: lab results Lab and/or radiology exams considered but not ordered:: none Interpretation Summary: No acute findings. Medications / Prescriptions Medications or Prescriptions considered but not ordered:: none Medication administrations:: Medication Administration History Discontinued Medications Diphenhydramine HCl (Diphenhydramine Inj 50 Mg/Ml Vial) 50 mg IV X1 ONE Stop: 06/11/24 09:40 Last Admin: 06/11/24 10:01 Dose: 50 mg Documented By: VERNA Diphenhydramine HCl (Diphenhydramine Inj 50 Mg/Ml Vial) 50 mg IV X1 ONE Stop: 06/11/24 13:01 Last Admin: 06/11/24 14:50 Dose: 50 mg Documented By: VERNA Haloperidol Lactate (Haloperidol Lact Inj 5 Mg/Ml Vial) 10 mg IM X1 ONE Stop: 06/11/24 09:36 Last Admin: 06/11/24 10:00 Dose: 10 mg Documented By: VERNA Sodium Chloride (Ns) 1,000 mls @ 999 mls/hr IV .Q1H1M ONE Stop: 06/11/24 10:37 Last Admin: 06/11/24 10:06 Dose: 999 mls/hr Documented By: VERNA Sodium Chloride (Ns) 1,000 mls @ 999 mls/hr IV .Q1H1M ONE Stop: 06/11/24 13:29 Last Admin: 06/11/24 14:50 Dose: 999 mls/hr Documented By: VERNA Ketorolac Tromethamine (Ketorolac Inj 30 Mg/Ml Vial) 15 mg IVP X1 ONE Stop: 06/11/24 13:01 Last Admin: 06/11/24 14:49 Dose: 15 mg Documented By: VERNA Metoclopramide HCl (Metoclopramide Inj 5 Mg/Ml Vial 2 Ml) 10 mg IV X1 ONE; Protocol Stop: 06/11/24 13:01 Last Admin: 06/11/24 14:50 Dose: 10 mg Documented By: VERNA see above Consultations Consultation(s) initiated? (list below): No Diagnosis Differential diagnosis abdominal pain: abdominal pain, gastroenteritis, pancreatitis and other (polysubstance abuse) Most likely diagnosis given after review of the tests above:: Methamphetamine intoxication Cannabis hyperemesis syndrome concurrent with and due to cannabis dependence Admission Indicated Admission indicated?: not indicated Admission Request Was there a request for admission?: No Disposition Plan Disposition Plan: Discharge Discharge Attestation Discharge Attestation: The patient and all family members were given an opportunity to ask questions and understood the discharge instructions. Discharge instructions specifically effects, indications for sooner follow up or return to the emergency department, and the expected course of current diagnosis. Patient condition: Stable Discharge Plan Plan Patient Disposition: HOME (Self Care) Prescriptions/Referrals Prescriptions/Med Rec: New ondansetron 4 mg tablet,disintegrating 4 mg PO Q8H PRN (Reason: nausea and vomiting) Qty: 10 0RF No Action quetiapine [Seroquel] 25 mg Tablet 25 mg PO TID lisinopril 20 mg Tablet 20 mg PO QDAY metoclopramide HCl 10 mg tablet 10 mg PO BID PRN (Reason: nausea and vomiting) Qty: 30 0RF docusate sodium 100 mg capsule 100 mg PO BID Patient Comments: take 1 capsule by mouth twice a day (DME) FreeField Squared Diallo 3 Plus Sensor Device See Rx Instructions .Route Qty: 1 6RF Rx Instructions: As directed gabapentin 600 mg tablet 200 mg PO TID Qty: 30 0RF sitagliptin 25 mg tablet 25 mg PO QDAY Qty: 90 0RF Referrals: No Primary/Family,Physician [Primary Care Provider] - In 1 week Problem List Clinical Impression: Methamphetamine intoxication, Cannabis hyperemesis syndrome concurrent with and due to cannabis dependence Patient/Caregiver Discharge Instructions Education Materials: Cannabinoid Hyperemesis Syndrome, ED Drug Abuse, ED Marijuana Abuse Additional Instructions: Stop using methamphetamines. Consider also stopping marijuana for better health and improvement vomiting. You can return to the emergency department sooner if symptoms worsen or if you notice any new, concerning issues. Print Language: Korean Stand Alone Forms: Emily Award Info., Patient Portal Info Letter
[2024-06-11 10:27] LABS: Basophils % (Auto) 1 % (0-2.5); Eosinophils # (Auto) 0.1 Thou/mm3 (0.0-0.5); Eosinophils % (Auto) 1 % (0-10); Hematocrit 33.7 % (36.0-46.0); Hemoglobin 11.3 g/dL (12.0-16.0); Immature Granulocytes % (Auto) 0 % (0-0); Immature Granulocytes Auto 0.03 Thou/mm3 (0.00-0.00); Lymphocytes # (Auto) 1.2 Thou/mm3 (1.0-4.8); Lymphocytes % (Auto) 15 % (10-50); Mean Corpuscular HGB Conc 33.5 g/dl (31.0-37.0); Mean Corpuscular Hemoglobin 26.4 pg (25.0-35.0); Mean Corpuscular Volume 79 fL (80-100); Monocytes # (Auto) 0.4 Thou/mm3 (0.0-0.8); Monocytes % (Auto) 5 % (0-12); Neutrophils # (Auto) 6.1 Thou/mm3 (1.8-7.7); Neutrophils % (Auto) 79 % (37-80); Nucleated Red Blood Cell % 0 /100 WBC (0); Platelet Count 141 Thou/mm3 (140-440); RDW Standard Deviation 42.5 fL (36.4-46.3); Red Blood Count 4.28 Miln/mm3 (4.00-5.20); White Blood Count 7.7 Thou/mm3 (3.6-11.0)
[2024-06-11 11:56] LABS: Alanine Aminotransferase 14 U/L (10-49); Albumin, Serum 3.5 gm/dL (3.5-5.0); Alkaline Phosphatase 131 U/L (46-116); Anion Gap 8 (7-16); Aspartate Amino Transferase 28 U/L (0-34); BUN/Creatinine Ratio 14 Ratio (12-20); Bilirubin,Total 0.3 mg/dL (0.3-1.2); Blood Urea Nitrogen 43 mg/dL (9-23); Calcium (Corrected) 9.4 mg/dL (8.5-10.1); Carbon Dioxide 21.2 mMol/L (20.0-31.0); Chloride 110 mMol/L (98-107); Globulin 3.5 gm/dL (2.3-3.5); Glucose 157 mg/dL (74-106); Osmolality,Calculated 291 (275-295); Potassium 5.8 mMol/L (3.4-5.1); Sodium 139 mMol/L (136-145); eGFR 19 See Note
[2024-06-11 12:45] VITALS: BP 175/91; PULSE 166; RESP 17; TEMP 36.4; O2SAT 100
[2024-06-11 14:00] VITALS: BP 202/121; PULSE 87; RESP 16; TEMP 36.4; O2SAT 100
[2024-06-11] MEDS: KETOROLAC INJ 30 MG/ML VIAL 15 MG IVP (14:49)
[2024-06-11] MEDS: METOCLOPRAMIDE INJ 5 MG/ML VIAL 2 ML 10 MG IV (14:50)
--- NOTE | 2024-06-11 16:01 | PC.NURSE ---
WENT IN TO D/C PT SHE REFUSED TO SIGN DC PAPERS, SHE REFUSED LAST SET OF VITALS AND STATED SHE IS NOT GOING TO LEAVE . AND WILL CHECK BACK IN AFTER.
[2024-06-11 16:02] LABS: Alcohol, Urine Negative (Negative)
--- NOTE | 2024-06-11 16:27 | PC.SS ---
Patient is a 44-year-old female coming in for mental health evaluation and stomach pain. CARMELINA Diallo met with patient who appeared alert and oriented to self, place and situation. Patient informs she was BIBA today as she was in pain . Patient denies SI and HI. Patient denies having audio and visual hallucinations. During this contact patient was able to engage in assessment and response to questions appropriately. Patient reports she was screaming earlier as she was experiencing pain. Patient informs reason she is here is for medical, not suicidal. Patient reports being independent with ambulation, no use of home DME. Patient informs she lives at home with her boyfriend, Berry. Patient assigned her family member, Merle as her emergency contact . Patient reports history of anxiety and taking medication, however does not recall medication name. Informs her PCP is the prescribing physician. Patient reports history of substance use, choices are meth and THC. Patient reports recent meth use yesterday as she relapsed . On recent admission earlier this month, the patient had positive toxicology report for THC, meth and opiates. Safe substance use was discussed with the patient and patient has declined substance abuse resources and mental health referral at this time. After staffing the evaluation with Care Mc Kay Stitcher, Heavenly Pollard LCSW determination was made that patient does not meet criteria for 5150 hold. ? Case consulted with ED attending Dr. Galicia.
== END 2024-06-11 16:16 | disposition home or self-care (01) ==
PROVIDERS: Emergency Provider Emergency Medicine
DX: F15.129 Other stimulant abuse with intoxication, unspecified (principal); F12.20 Cannabis dependence, uncomplicated; R11.2 Nausea with vomiting, unspecified; I10 Essential (primary) hypertension; E11.43 Type 2 diabetes mellitus with diabetic autonomic (poly)neuropathy; K31.84 Gastroparesis; F32.A Depression, unspecified; F41.9 Anxiety disorder, unspecified
CPT/HCPCS: 36415; 80053; 80320; 85025; 90839; 96372; 96374; 99284; J1200; J1630; J1885; J2765; J7030; G0480

== ENCOUNTER 2024-08-24 11:34 | Emergency (ER) | payer MEDICAID, SELFPAY ==
[2024-08-24 11:48] VITALS: PULSE 97; RESP 19; TEMP 36.6; O2SAT 97; BMI 28.2
[2024-08-24] MEDS: ALPRazoLAM 0.25 MG TABLET PO (12:00)
[2024-08-24] MEDS: METOCLOPRAMIDE INJ 5 MG/ML VIAL 2 ML 10 MG IM (12:00)
--- NOTE | 2024-08-24 12:06 | PD.EDRME ---
Rapid Medical Screening Exam RME Arrival date/time: 08/24/24 11:34 44-year-old female with history of gastroparesis, diabetes, pyelonephritis, methamphetamine abuse presents with concerns for nausea vomiting and anxiety as well as right flank pain Chief Complaint: Abdominal Pain Time Seen by Provider: 08/24/24 11:56 Vital signs: Vital Signs Temperature 97.9 F 08/24/24 11:48 Pulse Rate 97 08/24/24 11:48 Respiratory Rate 19 08/24/24 11:48 Pulse Oximetry (%) 97 08/24/24 11:48 Oxygen Delivery Method Room Air 08/24/24 11:48
[2024-08-24 12:14] LABS: Collection Type, Urine Clean Catch
--- NOTE | 2024-08-24 12:16 | EDNOTE_ITS ---
ED General RME/HPI General Chief complaint: Abdominal Pain Stated complaint: ABD PAIN, RIGHT FLANK PAIN, N/V, ANXIETY Time Seen by Provider: 08/24/24 11:56 Arrival date/time: 08/24/24 11:34 Limitations: no limitations RME / HPI RME / HPI narrative: 08/24/24 11:34 44-year-old female with history of gastroparesis, diabetes, pyelonephritis, methamphetamine abuse presents with concerns for nausea vomiting and anxiety as well as right flank pain DR. RICCI MAIN ED EVALUATION: 44 year old female with past medical history significant for gastroparesis, mood disorder, schizophrenia, diabetes, pyelonephritis, and methamphetamine abuse presents to the Emergency Department with complaints of nausea, vomiting, and abdominal pain. Onset of symptoms 2 days. Patient is also anxious and tearful. She states she is vomiting over and over. She reports right flank pain. No fevers or chills. No dysuria, hematuria, or other urinary symptoms. Related Data Home Medications ?Medication ?Instructions ?Recorded ?Confirmed lisinopril 20 mg tablet 20 mg PO QDAY 07/20/1705/22 quetiapine 25 mg tablet (Seroquel) 25 mg PO TID 05/23/24 docusate sodium 100 mg capsule 100 mg PO BID 05/22/24 05/23/24 Previous Rx's ?Medication ?Instructions ?Recorded metoclopramide HCl 10 mg tablet 10 mg PO BID PRN nause a and 04/01/24 vomiting #30 tabs blood-glucose sensor (FreeStyle #1 ea 05/24/24 Diallo 3 Plus Sensor device) gabapentin 600 mg tablet 200 mg (0.3333 x 600 mg) PO TID 05/25/24 #30 tabs sitagliptin 25 mg tablet 25 mg PO QDAY #90 tabs 05/25 ondansetron 4 mg disintegrating 4 mg PO Q8H PRN nausea and 06/11/24 tablet vomiting #10 tabs Allergies Allergy/AdvReac Type Severity Reaction Status Date / Time walnut Allergy Severe Swelling Verified 05/22/24 15:57 of Lip/Tongue/Throat Review of Systems Review of Systems Systems Reviewed: All systems reviewed, normal except as documented Past Medical History Past Medical History CARDIAC: Positive Hypertension RESPIRATORY: Positive Pneumonia GASTROINTESTINAL: Positive Gastrointestinal Disorders ENDOCRINE: Positive Diabetes Mellitus Type 2 PSYCHO/SOCIAL: Positive Schizophrenia and Anxiety Social History SMOKING STATUS: Never smoker SUBSTANCE USE: methamphetamine ED Exam General Limitations: Present no limitations General appearance: Present alert and other (Patient is also anxious and tear ful.) Head Head exam: Present atraumatic and normocephalic Eye Eye exam: Present normal appearance, PERRL and EOMI ENT ENT exam: Present normal exam, normal oropharynx and mucous membranes moist Neck Neck exam: Present normal inspection, full ROM and trachea midline Chest Chest inspection: Present normal inspection and symmetric chest wall rise Respiratory Respiratory exam: Present normal lung sounds bilaterally Cardiovascular Cardiovascular exam: Present regular rate, normal rhythm and normal heart sounds Abdominal Exam Abdominal exam: Present tenderness (upper right and left quadrant), normal bowel sounds and other (abdomen is obese); Absent mass or bruit Extremities Exam Extremities exam: Present normal inspection and full ROM Back Exam Back exam: Present normal inspection and full ROM Neurological Exam Neurological exam: Present alert, oriented X3 and CN II-XII intact Psychiatric Psychiatric exam: Present normal affect and normal mood Skin Skin exam: Present warm, dry, intact and normal color Course Quality Measures none Orders Category Date Time Status Audit Director NOW Care 08/24/24 12:28 Active Continuous Pulse Oximetry NOW Care 08/24/24 12:28 Active EKG (ED ONLY) *Do not use* NOW Care 08/24/24 12:28 Completed Insert IV NOW Care 08/24/24 12:[address] abdomen pelvis wo con Stat Exams 08/24/24 12:29 Completed EKG (ED Only) Stat Exams 08/24/24 12:28 Draft XR chest 1V portable Stat Exams 08/24/24 12:28 Completed Alcohol, Urine Stat Lab 08/24/24 12:02 Completed CBC Stat Lab 08/24/24 12:19 Completed Comprehensive Metabolic Panel Stat Lab 08/24/24 12:19 Completed Drug Screen,Urine Stat Lab 08/24/24 12:02 Completed HCG Qualitative,Urine Stat Lab 08/24/24 12:02 Completed Lipase Stat Lab 08/24/24 12:19 Completed Partial Thromboplastin Time Stat Lab 08/24/24 12:19 Completed Prothrombin Time with INR Stat Lab 08/24/24 12:19 Completed Troponin I Stat Lab 08/24/24 12:19 Completed UA, C/S IF [Urinalysis, C/S if Indicated] Stat Lab 08/24/24 12:02 Completed Urinalysis Stat Lab 08/24/24 12:28 Ordered ALPRazoLAM [Xanax] Med 08/24/24 11:52 Discontinued 0.25 mg PO X1 ONE Lactulose Syrup [Enulose Syrup] Med 08/24/24 15:48 Discontinued 20 gm PO X1 ONE Lidocaine 2% Viscous [Xylocaine 2% Viscous] Med 08/24/24 12:35 Discontinued 15 ml PO X1 ONE Metoclopramide Inj [Reglan Inj] Med 08/24/24 11:52 Discontinued 10 mg IM X1 ONE Milk Of Magnesia Susp [Mom Susp] Med 08/24/24 12:35 Discontinued 30 ml PO X1 ONE Sod Polystyrene Sulfon Susp [Kayexalate Susp] Med 08/24/24 16:50 Discontinued 15 gm PO X1 ONE Sodium Chloride 0.9% 1000 ml [Ns] 1,000 ml Med 08/24/24 12:28 Active IV 100 mls/hr Ziprasidone Inj [Geodon Inj] Med 08/24/24 12:45 Discontinued 20 mg IM X1 ONE Vital Signs Vital signs: Vital Signs Temperature 97.9 F 08/24/24 11:48 Pulse Rate 97 08/24/24 11:48 Respiratory Rate 19 08/24/24 11:48 Pulse Oximetry (%) 97 08/24/24 11:48 Oxygen Delivery Method Room Air 08/24/24 11:48 Discharge Plan Plan Patient Disposition: HOME (Self Care) Patient condition on transfer: Stable Prescriptions/Referrals Prescriptions/Med Rec: No Action quetiapine [Seroquel] 25 mg Tablet 25 mg PO TID lisinopril 20 mg Tablet 20 mg PO QDAY metoclopramide HCl 10 mg tablet 10 mg PO BID PRN (Reason: nausea and vomiting) Qty: 30 0RF docusate sodium 100 mg capsule 100 mg PO BID Patient Comments: take 1 capsule by mouth twice a day (DME) PeriscapeStIbetor Diallo 3 Plus Sensor Device See Rx Instructions .Route Qty: 1 6RF Rx Instructions: As directed gabapentin 600 mg tablet 200 mg PO TID Qty: 30 0RF sitagliptin 25 mg tablet 25 mg PO QDAY Qty: 90 0RF ondansetron 4 mg tablet,disintegrating 4 mg PO Q8H PRN (Reason: nausea and vomiting) Qty: 10 0RF Referrals: Kris(PixIrma Palomino PA-C [Primary Care Provider] - In 1 week Problem List Clinical Impression: Methamphetamine abuse, Hyperkalemia, Bladder wall thickening, Gastroparesis Patient/Caregiver Discharge Instructions Additional Instructions: Please stop using methamphetamine. Resume seroquel. Ask your doctor for an urology referral. Please follow-up with your primary care physician within 2-3 days. Return to the Emergency Department as needed. Print Language: Vincentian Stand Alone Forms: Emily Award Info., Patient Portal Info Letter MDM Narrative [facility] hospital course: I, Brie Greene, am scribing for and in the presence of Dr. Ricci. 1230: Plan to give Geodon 20 mg and reassess. Patient was advised to stop using methamphetamine. Patient has hyperkalemia. Patient was advised to stop using methamphetamine, resume seroquel, and to get an urology referral. Patient will be discharged. Clinical Information Provided by patient Medical Records Reviewed [facility] Meds/Rx Considered, not Ordered None Labs/Rad/Tests considered, not Ordered None Chronic Illness/Social Conditions Add or document further as needed: Gastroparesis, mood disorder, schizophrenia, diabetes, pyelonephritis, and methamphetamine abuse EKG Interpretation EKG #1: Date/time of EK08/24/24 1307 hours EKG interpretation: sinus rhythm, rate 92, left axis deviation, IL interval 159 ms, QRS duration 81 ms, QT/QTc 369/419, P-R-T axis 10, -27, and 31 Lab Interpretation Labs: see narrative above Imaging Radiology reports / interpretation(s): Procedure(s): XR chest 1V portable Accession Number(s): [id number] cc: Irma Ponce PA-C (PixleyCln); Miguel Angel Ricci MD; Faisal Maki MD~ Examination: AP chest single view Technique one AP portable upright chest single view Date and time: August 24, 2024 1241 hrs. Indications: Chest pain today. Findings: Normal heart size. Lungs are clear. Mild elevation right hemidiaphragm. Impression: No active disease. Dictated By: Faisal Maki MD Procedure(s): CT abdomen pelvis wo [facility] Accession Number(s): [id number] cc: Kirs(PixleyCln),Irma YOUNG; Miguel Angel Ricci MD; Faisal Maki MD~ Examination: CT abdomen and pelvis without contrast. Coronal 3-D reconstructions. Sagittal 2-D reconstructions. Date and time of exam:August 24, 2024 1401 hrs. Indications: Right-sided abdominal pain onset today CTDI: vol (mGy): 11.7 DLP: (mGycm): 687 Technique: Axial images of the abdomen have been obtained, 3 mm slice thickness Intravenous contrast material has not been administered. Low dose protocols were performed. One or more of the following dose reduction techniques were used; automated exposure control, adjustment of the mA and/or KV according to patient size, use of iterative reconstruction technique. Findings: Liver is mildly irregular in contour Absent gallbladder Spleen is not enlarged No pancreatic mass Bilateral perinephric stranding Significant scarring left kidney No renal or ureteral calculi Aorta normal size No pericecal inflammatory change No bowel obstruction or diverticulitis Partially retroverted uterus No adnexal mass Urinary bladder shows pronounced wall thickening measuring up to 22 mm Advanced degenerative disc disease L5-S1 Impression: Findings most consistent with bilateral probably pyelonephritis and severe cystitis Dictated By: Faisal Maki MD Medication Administration(s) Medication Administration History Sodium Chloride (Ns) 1,000 mls @ 100 mls/hr IV .Q10H ONE Stop: 08/24/24 22:27 Last Admin: 08/24/24 13:14 Dose: 100 mls/hr Documented By: TM Discontinued Medications Alprazolam (Alprazolam 0.25 Mg Tablet) 0.25 mg PO X1 ONE Stop: 08/24/24 11:53 Last Admin: 08/24/24 12:00 Dose: 0.25 mg Documented By: MINDY Lactulose (Lactulose Syrup 20 Gm/30 Ml Udc) 20 gm PO X1 ONE; Protocol Stop: 08/24/24 15:49 Last Admin: 08/24/24 16:34 Dose: 20 gm Documented By: TM Lidocaine HCl (Lidocaine Viscous 2% 15 Ml Udc) 15 ml PO X1 ONE Stop: 08/24/24 12:36 Last Admin: 08/24/24 13:15 Dose: 15 ml Documented By: TM Magnesium Hydroxide (Milk Of Magnesia Susp 30 Ml Udc) 30 ml PO X1 ONE; Protocol Stop: 08/24/24 12:36 Last Admin: 08/24/24 13:15 Dose: 30 ml Documented By: TM Metoclopramide HCl (Metoclopramide Inj 5 Mg/Ml Vial 2 Ml) 10 mg IM X1 ONE; Protocol Stop: 08/24/24 11:53 Last Admin: 08/24/24 12:00 Dose: 10 mg Documented By: FC Sodium Polystyrene Sulfonate (Sod Polystyrene Sulfon Susp 15 Gm/60 Ml Btl) 15 gm PO X1 ONE Stop: 08/24/24 16:51 Ziprasidone (Ziprasidone Inj 20 Mg/Ml Vial (Non-Formulary)) 20 mg IM X1 ONE Stop: 08/24/24 12:46 Last Admin: 08/24/24 13:16 Dose: 20 mg Documented By: TM Diagnosis Differential diagnosis: gastroparesis, pyelonephritis, UTI, abdominal pain Most likely dx, and/or detailed dx discussion: Methamphetamine abuse Hyperkalemia Perinephric stranding, chronic Chronic bladder wall thickening Acute exacerbation of gastroparesis Dispositon Disposition: Discharge Home
[2024-08-24 12:27] LABS: Bacteria,Urine 1+; Bilirubin,Urine Negative (Negative); Blood,Urine 1+ (Negative); Clarity,Urine Turbid (Clear/Hazy); Color,Urine Lt-Yellow (Lt Yel-Yel); Culture Indicated,Urine Contaminated; Glucose, Urine 4+ (Negative); Hyaline Casts,Urine < 1 /hpf (0-1); Ketones,Urine Negative (Negative); Leukocyte Esterase,Urine Negative (Negative); Nitrite,Urine Negative (Negative); PH,Urine 7.5 (5.0-7.0); Protein,Urine 3+ (Neg - Trace); RBC,Urine 7 /hpf (0-3); Specific Gravity,Urine 1.013 (1.001-1.035); Squamous Epithelial Cell,Urine 18 /hpf (0-5); Urobilinogen,Urine Negative mg/dL (0.0-1.0); WBC,Urine 6 /hpf (0-5)
[2024-08-24 12:28] LABS: HCG Qualitative,Urine Negative
--- NOTE | 2024-08-24 12:28 | EKG_ITS ---
[facility] Test Date: 2024-08-24 Pat Name: MEENAKSHI DESAI Department: Room: - Gender: Female Evp And Chief Operating Officer: : 1980 Requested By: Miguel Angel Cano Order Number: [id number] Reading MD: Miguel Angel Cano Measurements Intervals Hines Rate: 92 P: 10 HI: 159 QRS: -27 QRSD: 81 T: 31 QT: 369 QTc: 458 Interpretive Statements SINUS RHYTHM BORDERLINE LEFT AXIS DEVIATION [QRS AXIS < -20] Compared to ECG 05/23/2024 12:30:19 Sinus tachycardia no longer present /store/S0/[id number]/ecg/[id number].pdf
--- NOTE | 2024-08-24 12:28 | XR_ITS ---
Examination: AP chest single view Technique one AP portable upright chest single view Date and time: August 24, 2024 1241 hrs. Indications: Chest pain today. Findings: Normal heart size. Lungs are clear. Mild elevation right hemidiaphragm. Impression: No active disease.
--- NOTE | 2024-08-24 12:29 | XR_ITS ---
Examination: CT abdomen and pelvis without contrast. Coronal 3-D reconstructions. Sagittal 2-D reconstructions. Date and time of exam:August 24, 2024 1401 hrs. Indications: Right-sided abdominal pain onset today CTDI: vol (mGy): 11.7 DLP: (mGycm): 687 Technique: Axial images of the abdomen have been obtained, 3 mm slice thickness Intravenous contrast material has not been administered. Low dose protocols were performed. One or more of the following dose reduction techniques were used; automated exposure control, adjustment of the mA and/or KV according to patient size, use of iterative reconstruction technique. Findings: Liver is mildly irregular in contour Absent gallbladder Spleen is not enlarged No pancreatic mass Bilateral perinephric stranding Significant scarring left kidney No renal or ureteral calculi Aorta normal size No pericecal inflammatory change No bowel obstruction or diverticulitis Partially retroverted uterus No adnexal mass Urinary bladder shows pronounced wall thickening measuring up to 22 mm Advanced degenerative disc disease L5-S1 Impression: Findings most consistent with bilateral probably pyelonephritis and severe cystitis
[2024-08-24 12:35] LABS: Alcohol, Urine Negative (Negative); Amphetamine/Methamp Scrn,U Positive (Negative); Barbiturate Screen,Urine Negative (Negative); Benzodiazepines Screen,Urine Negative (Negative); Benzoylecgonine Screen, Ur Negative (Negative); Fentanyl Screen,Urine Negative (Negative); Opiate Screen,Urine Negative (Negative); THC Screen,Urine Positive (Negative)
[2024-08-24 12:39] LABS: Basophils % (Auto) 0 % (0-2.5); Eosinophils % (Auto) 0 % (0-10); Hematocrit 36.3 % (36.0-46.0); Hemoglobin 12.7 g/dL (12.0-16.0); Immature Granulocytes % (Auto) 1 % (0-0); Immature Granulocytes Auto 0.07 Thou/mm3 (0.00-0.00); Lymphocytes # (Auto) 0.9 Thou/mm3 (1.0-4.8); Lymphocytes % (Auto) 10 % (10-50); Mean Corpuscular Hemoglobin 26.8 pg (25.0-35.0); Mean Corpuscular Volume 77 fL (80-100); Monocytes # (Auto) 0.4 Thou/mm3 (0.0-0.8); Monocytes % (Auto) 5 % (0-12); Neutrophils # (Auto) 7.4 Thou/mm3 (1.8-7.7); Neutrophils % (Auto) 85 % (37-80); Nucleated Red Blood Cell % 0 /100 WBC (0); Platelet Count 276 Thou/mm3 (140-440); RDW Standard Deviation 36.1 fL (36.4-46.3); Red Blood Count 4.74 Miln/mm3 (4.00-5.20); White Blood Count 8.7 Thou/mm3 (3.6-11.0)
[2024-08-24 12:46] LABS: Partial Thromboplastin Time 25.4 Seconds (22.0-36.0); Prothrombin Time 10.5 Seconds (9.0-12.2)
[2024-08-24 13:08] LABS: Alanine Aminotransferase 19 U/L (10-49); Albumin, Serum 4.2 gm/dL (3.5-5.0); Albumin/Globulin Ratio 1.2 (1.2-2.2); Alkaline Phosphatase 219 U/L (46-116); Anion Gap 9 (7-16); BUN/Creatinine Ratio 12 Ratio (12-20); Bilirubin,Total 0.4 mg/dL (0.3-1.2); Blood Urea Nitrogen 30 mg/dL (9-23); Calcium 10.1 mg/dL (8.3-10.6); Calcium (Corrected) 10.1 mg/dL (8.5-10.1); Carbon Dioxide 24.6 mMol/L (20.0-31.0); Chloride 97 mMol/L (98-107); Creatinine (Component) 2.6 mg/dL (0.6-1.3); Globulin 3.5 gm/dL (2.3-3.5); Glucose 208 mg/dL (74-106); Lipase 46 U/L (12-53); Osmolality,Calculated 274 (275-295); Potassium 5.3 mMol/L (3.4-5.1); Sodium 131 mMol/L (136-145); Total Protein 7.7 gm/dL (5.7-8.2); Troponin I < 0.020 ng/mL (0.0-0.045); eGFR 23 See Note
[2024-08-24] MEDS: SODIUM CHLORIDE 0.9% 1000 ML 1,000 ML 100 ML IV (13:14)
[2024-08-24] MEDS: LIDOCAINE VISCOUS 2% 15 ML UDC PO (13:15)
[2024-08-24] MEDS: Milk Of Magnesia Susp 30 ML UDC PO (13:15)
[2024-08-24] MEDS: ZIPRASIDONE INJ 20 MG/ML VIAL (NON-FORMULARY) IM (13:16)
--- NOTE | 2024-08-24 13:30 | PC.NURSE ---
PT REPORTS THAT SHE IS HAVING UPPER MEDIAL ABD PAIN THAT IS A BURNING SENSATION. REPORTS SHE CANNOT TELL IF IT IS HURTING OR IF IT IS HER ANXIETY. PT MEDICATED, VISITOR AT BEDSIDE ATTENTIVE TO PT, VSS ON TELE, CALL CHEUNG IN REACH, WILL CONT W/POC
[2024-08-24 13:41] VITALS: BP 131/89; PULSE 82; RESP 17; TEMP 36.4; O2SAT 98
[2024-08-24 16:20] VITALS: BP 146/100; PULSE 80; RESP 16; TEMP 36.7; O2SAT 100
[2024-08-24] MEDS: LACTULOSE SYRUP 20 GM/30 ML UDC PO (16:34)
--- NOTE | 2024-08-24 17:28 | PC.NURSE ---
PT RESTING W/EYES CLOSED, UNLABORED BREATHING, EVEN RISE AND FALL OF CHEST, VSS ON TELE
--- NOTE | 2024-08-24 17:32 | PC.NURSE ---
PT REFUSED MEDICATION KAYEXLATE, REPORTED LAST TIME SHE TOOK IT, SHE STARTED HAVING CONVULSIONS
--- NOTE | 2024-08-24 17:39 | PC.NURSE ---
PROVIDER MADE AWARE OF PT REFUSING MEDICATION, PROVIDER WENT TO BEDSIDE TO SPEAK W/PT. PT NOW AGREES TO TAKE MEDICATION, WILL REATTEMPT
[2024-08-24] MEDS: SOD POLYSTYRENE SULFON SUSP 15 GM/60 ML BTL PO (17:40)
[2024-08-24 18:27] VITALS: BP 139/100; PULSE 81; RESP 16; TEMP 36.9; O2SAT 97
[2024-08-24 18:45] VITALS: BP 150/90; PULSE 88; RESP 16; TEMP 36.9; O2SAT 98
== END 2024-08-24 18:48 | disposition home or self-care (01) ==
PROVIDERS: Nurse Practitioner Primary Care; Emergency Provider Family Medicine; PCP Physician Assistant
DX: K31.84 Gastroparesis (principal); F15.10 Other stimulant abuse, uncomplicated; E87.5 Hyperkalemia; E11.43 Type 2 diabetes mellitus with diabetic autonomic (poly)neuropathy; R94.31 Abnormal electrocardiogram [ECG] [EKG]; I10 Essential (primary) hypertension
CPT/HCPCS: 36415; 71045; 74176; 80053; 80307; 80320; 81001; 81025; 83690; 84484; 85025; 85610; 85730; 93005; 96372; 99284; J2765; J3486; J3490; J7030; A9270; G0480

== ENCOUNTER 2024-09-12 08:48 | Emergency (ER) | payer MEDICAID, SELFPAY ==
[2024-09-12] VITALS (44 sets, daily range): BP systolic 181–245; BP diastolic 96–138; PULSE 71–99; RESP 10–24; TEMP 36.6–37.1; O2SAT 96–100; BMI 28.1; BMI 28.5
--- NOTE | 2024-09-12 09:47 | PD.EDABDPN ---
ED Abdominal Pain RME/HPI General Chief Complaint: Abdominal Pain Stated complaint: ABD PAIN Arrival date/time: 09/12/24 08:48 Limitations: no limitations RME / HPI RME / HPI narrative: 44 year old female with history of hypertension, CKD, diabetes, diabetic gastroparesis, substance abuse (marijuana and methamphetamine) presents to the ED BIBA from home for evaluation of my kidneys hurt really bad on both sides . States with her history of CKD she occasionally has pain in the right flank. However, beginning this morning states pain has been more severe and affecting both sides of back. Accompanied by dysuria, nausea, vomiting, and constipation x 2 days. Additionally complains of a burning sensation to epigastric region. Denies fevers, chills, sweats, cough, shortness of breath, or hematuria. Patient admits to using methamphetamine 4 days ago and smoking marijuana twice daily. Related Data Home Medications ?Medication ?Instructions ?Recorded ?Confirmed lisinopril 20 mg tablet 20 mg PO QDAY 07/20/17 05/22/24 quetiapine 25 mg tablet (Seroquel) 25 mg PO TID 07/20/17 05/23/24 docusate sodium 100 mg capsule 100 mg PO BID 05/22/24 05/23/24 Previous Rx's ?Medication ?Instructions ?Recorded metoclopramide HCl 10 mg tablet 10 mg PO BID PRN nausea and 04/01/24 vomiting #30 tabs blood-glucose sensor (FreeStyle #1 ea 05/24/24 Diallo 3 Plus Sensor device) gabapentin 600 mg tablet 200 mg (0.3333 x 600 mg) PO TID 05/25/24 #30 tabs sitagliptin 25 mg tablet 25 mg PO QDAY #90 tabs 05/25/24 ondansetron 4 mg disintegrating 4 mg PO Q8H PRN nausea and 06/11/24 tablet vomiting #10 tabs amlodipine 10 mg tablet 10 mg PO QDAY #30 tabs 09/12/24 cephalexin 500 mg capsule 500 mg PO Q8H 7 days #21 caps 09/12/24 diphenhydramine HCl 25 mg capsule 25 mg PO QID 7 days #28 caps 09/12/24 (Benadryl) hydralazine 25 mg tablet 25 mg PO TID PRN systolic bp above 09/12/24 160 #30 tabs metoclopramide HCl 5 mg tablet 5 mg PO QID 7 days #28 tabs 09/12/24 (Reglan) Allergies Allergy/AdvReac Type Severity Reaction Status Date / Time walnut Allergy Severe Swelling Verified 05/22/24 15:57 of Lip/Tongue/Throat Review of Systems Review of Systems Systems Reviewed: All systems reviewed, normal except as documented Past Medical History Past Medical History CARDIAC: Positive Hypertension; Negative Congestive Heart Failure RESPIRATORY: Positive Pneumonia; Negative Chronic Obstructive Pulmonary Disease (COPD) GASTROINTESTINAL: Positive Gastrointestinal Disorders GENITOURINARY: Negative Renal Disease ENDOCRINE: Positive Diabetes Mellitus Type 2; Negative Diabetes Mellitus Type 1 PSYCHO/SOCIAL: Positive Schizophrenia and Anxiety Family History FAMILY HISTORY: Negative Family Cancer Social History SMOKING STATUS: Never smoker SUBSTANCE USE: methamphetamine ED Exam General Limitations: Present no limitations General appearance: Present alert and other (Appears to be in pain ) Head Head exam: Present atraumatic and normocephalic Eye Eye exam: Present normal appearance, PERRL and EOMI ENT ENT exam: Present normal exam, normal oropharynx and mucous membranes moist Neck Neck exam: Present normal inspection, full ROM and trachea midline Chest Chest inspection: Present normal inspection and symmetric chest wall rise Respiratory Respiratory exam: Present normal lung sounds bilaterally Cardiovascular Cardiovascular exam: Present regular rate, normal rhythm and normal heart sounds Abdominal Exam Abdominal exam: Present soft, tenderness (in the epigastric and right flank regions ) and normal bowel sounds Extremities Exam Extremities exam: Present normal inspection and full ROM Back Exam Back exam: Present normal inspection and full ROM Neurological Exam Neurological exam: Present alert, oriented X3 and CN II-XII intact Psychiatric Psychiatric exam: Present normal affect and normal mood Skin Skin exam: Present warm, dry, intact and normal color Course Quality Measures none Orders Category Date Time Status CT Screening NOW Care 09/12/24 09:[address] chest abdomen pelvis wo Stat Exams 09/12/24 15:26 Completed BNP [B-Type Natriuretic Peptide] Stat Lab 09/12/24 11:10 Completed CBC [CBC] Stat Lab 09/12/24 11:10 Completed CMP [Comprehensive Metabolic Panel] Stat Lab 09/12/24 11:10 Completed ESR [Sed Rate (ESR)] Stat Lab 09/12/24 11:10 Completed HCG Qualitative,Urine Stat Lab 09/12/24 14:17 Completed Lipase Stat Lab 09/12/24 11:10 Completed Troponin I Stat Lab 09/12/24 11:10 Completed UA, C/S IF [Urinalysis, C/S if Indicated] Stat Lab 09/12/24 14:17 Completed Capsaicin Cr [Zostrix Cr] Med 09/12/24 09:37 Discontinued See Dose Instructions TOP X1 ONE DiphenhydrAMINE INJ [Benadryl Inj] Med 09/12/24 09:36 Discontinued 50 mg IVP X1 ONE Famotidine Inj [Pepcid Inj] Med 09/12/24 09:37 Discontinued 20 mg IVP X1 ONE Haloperidol Lactate [Haldol Inj] Med 09/12/24 09:36 Active 5 mg IV Q6HR PRN Labetalol IV [Trandate IV] Med 09/12/24 09:38 Discontinued 10 mg IVP X1 ONE Ondansetron Inj [Zofran Inj] Med 09/12/24 09:36 Discontinued 4 mg IVP X1 ONE Ringers Lactated 1000 ml [Lactated Ringers] 1,000 ml Med 09/12/24 09:37 Discontinued IV 999 mls/hr amLODIPine BESYLATE [Norvasc] Med 09/12/24 17:34 Discontinued 5 mg PO X1 ONE cefTRIAXone/D5w 1gm IV premix [Rocephin/D5w 1gm IV Med 09/12/24 17:37 Discontinued premix] 1 gm in 50 ml IV X1 hydrALAZINE INJ [Apresoline Inj] Med 09/12/24 17:34 Discontinued 20 mg IVP X1 ONE Vital Signs Vital signs: Vital Signs Temperature 98.5 F 09/12/24 09:02 Pulse Rate 99 09/12/24 09:02 Respiratory Rate 18 09/12/24 09:02 Blood Pressure 229/129 H 09/12/24 09:02 Pulse Oximetry (%) 96 09/12/24 09:02 Oxygen Delivery Method Room Air 09/12/24 09:02 Pulse ox is 96% on room air which is adequate. Abdominal Pain MDM MDM Narrative MDM Narrative:: ILaura am scribing for and in the presence of Dr. Cortez. Assessment: Severe hypertension, substance abuse, hyperemesis syndrome, rule out bowel perforation and aortic dissection Plan: CT angio abd pelvis, Haldol, Capsaisin, Benadryl, and treat hypertension with Labetolol. 1526: Notified by RN that due to kidney function, patient is unable to have CT angio performed. Switched to CT abdomen pelvis wo contrast. Patients work-up today suggestive of hypertensive emergency, meth use, UTI, there were ischemic damage to the periphenphric tissue most likely due to meth use, CKD, gastroparesis. Plan to send home with Amlodipine and Hydralazine for hypertension, Reglan and Benadryl for gastroparesis, Keflex for UTI and advised to stop the marijuana and met. Patients blood pressure remains elevated. Will send home with Amlodipine. We reviewed all the results, analysis, and treatment plans. Patient is amenable to discharge. Strict return precautions were outlined. Patient was discharged in stable condition. Patient data External records reviewed:: [facility] previous records (I reviewed ED visit on o08/24/2024 for abdominal pain and n/v. ) and EMS form Clinical information provided by:: patient and EMS Social determinants that could affect healthcare access:: substance use (Methamphetamine and marijuana use ) Patient has the following chronic illnesses:: hypertension, CKD, diabetes, diabetic gastroparesis, substance abuse (marijuana and methamphetamine) How is presenting disease/condition affected by chronic disease/condition?: exacerbated by Evaluation data The following diagnostics were reviewed and interpreted by me:: lab results and radiology exam(s) Lab and/or radiology exams considered but not ordered:: None Interpretation Summary: Ordering Physician: Jennifer Rollins MD Date of Service: 09/12/24 Procedure(s): CT chest abdomen pelvis wo Accession Number(s): [id number] cc: Jennifer Rollins MD; Faisal Maki MD; NO PRIMARY/FAMILY,PHYSICIAN~ Examination: CT chest, without intravenous contrast. CT abdomen, without intravenous contrast. CT pelvis, without intravenous contrast. 2-D sagittal and coronal reconstructions. 3-D reconstructions. Date and time of exam:September 12, 2024, 1620 hours INDICATIONS: Sepsis alert, bilateral flank pain today CTDI vol (mgy) 11.4 DLP (MGycm)859 Technique: Multiple CT images, 3.0 mm slice thickness, obtained chest, abdomen, pelvis, with the high-resolution 64 slice scanner.. Sagittal and coronal 2-D reconstructions are obtained. 3-D reconstructions Low dose protocols were performed. One or more of the following dose reduction techniques were used; automated exposure control, adjustment of the mA and/or KV according to patient size, use of iterative reconstruction technique. Findings: No thoracic aortic aneurysm dilatation No pathologic mediastinal lymphadenopathy No pneumonia or pulmonary edema or pleural disease Liver is irregular in contour, no focal liver lesions Splenomegaly 14 cm Absent gallbladder No pancreatic mass Prominent perinephric stranding Atrophic left kidney No renal or ureteral calculi, no hydronephrosis Aorta normal size Normal appendix No bowel obstruction 12 mm fat-containing umbilical hernia No diverticulitis Atrophic anteverted uterus Mild free fluid in the pelvis Urinary bladder wall thickening up to 6 mm, no bladder calculi Advanced degenerative disc disease L5-S1 IMPRESSION: No pneumonia pulmonary edema or pleural disease Cirrhosis Mild splenomegaly Prominent perinephric stranding, consider urinary tract infection Urinary bladder wall thickening up to 6 mm, differential would include cystitis Dictated By: Faisal Maki MD Signed By: <Electronically signed by Faisal Maki MD in OV> 09/12/24 1702 Medications / Prescriptions Medications or Prescriptions considered but not ordered:: None Medication administrations:: Medication Administration History Haloperidol Lactate (Haloperidol Lact Inj 5 Mg/Ml Vial) 5 mg IV Q6HR PRN PRN Reason: AGITATION (SEVERE) Stop: 09/17/24 09:35 Last Admin: 09/12/24 10:00 Dose: 5 mg Documented By: CG Discontinued Medications Amlodipine Besylate (Amlodipine Besylate 5 Mg Tablet) 5 mg PO X1 ONE Stop: 09/12/24 17:35 Last Admin: 09/12/24 18:17 Dose: Not Given Documented By: CG Non-Admin Reason: Patient Refused Capsaicin (Capsaicin Cr 60 Gm Tube) 0 gm TOP X1 ONE Stop: 09/12/24 09:38 Last Admin: 09/12/24 11:44 Dose: 60 gm Documented By: CG Diphenhydramine HCl (Diphenhydramine Inj 50 Mg/Ml Vial) 50 mg IVP X1 ONE Stop: 09/12/24 09:37 Last Admin: 09/12/24 10:00 Dose: 50 mg Documented By: CG Famotidine (Famotidine Inj 10 Mg/Ml Vial 2 Ml) 20 mg IVP X1 ONE Stop: 09/12/24 09:38 Last Admin: 09/12/24 10:00 Dose: 20 mg Documented By: CG Hydralazine HCl (Hydralazine Inj 20 Mg/Ml Vial) 20 mg IVP X1 ONE Stop: 09/12/24 17:35 Last Admin: 09/12/24 18:17 Dose: Not Given Documented By: CG Non-Admin Reason: Patient Refused Lactated Ringer's (Lactated Ringers) 1,000 mls @ 999 mls/hr IV .Q1H1M ONE Stop: 09/12/24 10:37 Last Infusion: 09/12/24 10:23 Dose: Infused Documented By: Admin: 09/12/24 10:01 Dose: 999 mls/hr Documented By: CG Ceftriaxone Sodium/Dextrose (Rocephin/D5w 1gm Iv Premix) 1 gm in 50 mls @ 100 mls/hr IV X1 ONE Stop: 09/12/24 18:06 Last Admin: 09/12/24 18:17 Dose: Not Given Documented By: CG Non-Admin Reason: Patient Refused Labetalol HCl (Labetalol Inj 5 Mg/Ml Vial 20 Ml) 10 mg IVP X1 ONE Stop: 09/12/24 09:39 Last Admin: 09/12/24 09:59 Dose: 10 mg Documented By: CG Ondansetron HCl (Ondansetron Inj 2 Mg/Ml Inj 2 Ml) 4 mg IVP X1 ONE; Protocol Stop: 09/12/24 09:37 Last Admin: 09/12/24 10:00 Dose: 4 mg Documented By: CG See above Diagnosis Differential diagnosis abdominal pain: abdominal pain, calculus of kidney and other (severe hypertension, substance abuse, hyperemesis syndrome, bowel perforation, aortic dissection) Most likely diagnosis given after review of the tests above:: UTI Meth use Cannabinoid hypermesis Hypertensive urgency Admission Indicated Admission indicated?: not indicated Admission Request Was there a request for admission?: No Disposition Plan Disposition Plan: Discharge Discharge Attestation Discharge Attestation: The patient and all family members were given an opportunity to ask questions and understood the discharge instructions. Discharge instructions specifically effects, indications for sooner follow up or return to the emergency department, and the expected course of current diagnosis. Patient condition: Stable Discharge Plan Plan Patient Disposition: HOME (Self Care) Prescriptions/Referrals Prescriptions/Med Rec: New cephalexin 500 mg capsule 500 mg PO Q8H 7 Days Qty: 21 0RF metoclopramide HCl [Reglan] 5 mg tablet 5 mg PO QID 7 Days Qty: 28 0RF diphenhydramine HCl [Benadryl] 25 mg capsule 25 mg PO QID 7 Days Qty: 28 0RF amlodipine 10 mg tablet 10 mg PO QDAY Qty: 30 0RF hydralazine 25 mg tablet 25 mg PO TID PRN (Reason: systolic bp above 160) Qty: 30 0RF No Action quetiapine [Seroquel] 25 mg Tablet 25 mg PO TID lisinopril 20 mg Tablet 20 mg PO QDAY metoclopramide HCl 10 mg tablet 10 mg PO BID PRN (Reason: nausea and vomiting) Qty: 30 0RF docusate sodium 100 mg capsule 100 mg PO BID Patient Comments: take 1 capsule by mouth twice a day (DME) mTrakse 3 Plus Sensor Device See Rx Instructions .Route Qty: 1 6RF Rx Instructions: As directed gabapentin 600 mg tablet 200 mg PO TID Qty: 30 0RF sitagliptin 25 mg tablet 25 mg PO QDAY Qty: 90 0RF ondansetron 4 mg tablet,disintegrating 4 mg PO Q8H PRN (Reason: nausea and vomiting) Qty: 10 0RF Referrals: No Primary/Family,Physician [Primary Care Provider] - In 1 week Problem List Clinical Impression: Urinary tract infectious disease, Methamphetamine abuse, Hypertensive emergency, Cannabis-induced anxiety disorder, Hyperemesis Patient/Caregiver Discharge Instructions Discharge Activity: activity as tolerated Education Materials: Addiction: Getting Help, ED Diet for Vomiting or ..., ED Drug Abuse, ED Vomiting (Adult) Print Language: Lao Stand Alone Forms: Emily Award Info., Patient Portal Info Letter
[2024-09-12] MEDS: LABETALOL INJ 5 MG/ML VIAL 20 ML 10 MG IVP (09:59)
[2024-09-12] MEDS: ONDANSETRON INJ 2 MG/ML INJ 2 ML 4 MG IVP (10:00)
[2024-09-12] MEDS: FAMOTIDINE INJ 10 MG/ML VIAL 2 ML 20 MG IVP (10:00)
[2024-09-12] MEDS: HALOPERIDOL LACT INJ 5 MG/ML VIAL IV (10:00)
[2024-09-12] MEDS: DiphenhydrAMINE INJ 50 MG/ML VIAL IVP (10:00)
[2024-09-12] MEDS: RINGERS LACTATED 1000 ML 1,000 ML 999 ML IV (10:01)
[2024-09-12 11:26] LABS: Basophils % (Auto) 0 % (0-2.5); Eosinophils # (Auto) 0.1 Thou/mm3 (0.0-0.5); Eosinophils % (Auto) 1 % (0-10); Hematocrit 33.3 % (36.0-46.0); Hemoglobin 11.6 g/dL (12.0-16.0); Immature Granulocytes % (Auto) 0 % (0-0); Immature Granulocytes Auto 0.03 Thou/mm3 (0.00-0.00); Lymphocytes # (Auto) 1.3 Thou/mm3 (1.0-4.8); Lymphocytes % (Auto) 19 % (10-50); Mean Corpuscular HGB Conc 34.8 g/dl (31.0-37.0); Mean Corpuscular Volume 77 fL (80-100); Monocytes # (Auto) 0.4 Thou/mm3 (0.0-0.8); Monocytes % (Auto) 5 % (0-12); Neutrophils # (Auto) 5.3 Thou/mm3 (1.8-7.7); Neutrophils % (Auto) 75 % (37-80); Nucleated Red Blood Cell % 0 /100 WBC (0); Platelet Count 163 Thou/mm3 (140-440); RDW Standard Deviation 38.7 fL (36.4-46.3); White Blood Count 7.1 Thou/mm3 (3.6-11.0)
[2024-09-12 11:37] LABS: Sed Rate (ESR) 71 mm/hr (0-20)
[2024-09-12] MEDS: CAPSAICIN CR 60 GM TUBE TOP (11:44)
[2024-09-12 11:45] LABS: Alanine Aminotransferase 14 U/L (10-49); Albumin, Serum 3.8 gm/dL (3.5-5.0); Albumin/Globulin Ratio 1.2 (1.2-2.2); Alkaline Phosphatase 176 U/L (46-116); Anion Gap 8 (7-16); Aspartate Amino Transferase 22 U/L (0-34); BUN/Creatinine Ratio 13 Ratio (12-20); Bilirubin,Total 0.2 mg/dL (0.3-1.2); Blood Urea Nitrogen 35 mg/dL (9-23); Calcium 8.8 mg/dL (8.3-10.6); Carbon Dioxide 20.9 mMol/L (20.0-31.0); Chloride 109 mMol/L (98-107); Creatinine (Component) 2.7 mg/dL (0.6-1.3); Globulin 3.1 gm/dL (2.3-3.5); Glucose 157 mg/dL (74-106); Lipase 143 U/L (12-53); Osmolality,Calculated 286 (275-295); Potassium 5.5 mMol/L (3.4-5.1); Sodium 138 mMol/L (136-145); Total Protein 6.9 gm/dL (5.7-8.2); Troponin I < 0.020 ng/mL (0.0-0.045); eGFR 22 See Note
[2024-09-12 11:55] LABS: B-Type Natriuretic Peptide 138 pg/mL (0-100)
[2024-09-12 14:33] LABS: Collection Type, Urine Clean Catch
[2024-09-12 14:39] LABS: Bilirubin,Urine Negative (Negative); Blood,Urine Trace (Negative); Clarity,Urine Clear (Clear/Hazy); Color,Urine Colorless (Lt Yel-Yel); Culture Indicated,Urine Not Indicated; Glucose, Urine 1+ (Negative); Ketones,Urine Negative (Negative); Leukocyte Esterase,Urine Negative (Negative); Nitrite,Urine Negative (Negative); PH,Urine 6.5 (5.0-7.0); Protein,Urine 2+ (Neg - Trace); RBC,Urine 5 /hpf (0-3); Specific Gravity,Urine 1.009 (1.001-1.035); Squamous Epithelial Cell,Urine 1 /hpf (0-5); Urobilinogen,Urine Negative mg/dL (0.0-1.0); WBC,Urine 3 /hpf (0-5)
--- NOTE | 2024-09-12 15:26 | XR_ITS ---
Examination: CT chest, without intravenous contrast. CT abdomen, without intravenous contrast. CT pelvis, without intravenous contrast. 2-D sagittal and coronal reconstructions. 3-D reconstructions. Date and time of exam:September 12, 2024, 1620 hours INDICATIONS: Sepsis alert, bilateral flank pain today CTDI vol (mgy) 11.4 DLP (MGycm)859 Technique: Multiple CT images, 3.0 mm slice thickness, obtained chest, abdomen, pelvis, with the high-resolution 64 slice scanner.. Sagittal and coronal 2-D reconstructions are obtained. 3-D reconstructions Low dose protocols were performed. One or more of the following dose reduction techniques were used; automated exposure control, adjustment of the mA and/or KV according to patient size, use of iterative reconstruction technique. Findings: No thoracic aortic aneurysm dilatation No pathologic mediastinal lymphadenopathy No pneumonia or pulmonary edema or pleural disease Liver is irregular in contour, no focal liver lesions Splenomegaly 14 cm Absent gallbladder No pancreatic mass Prominent perinephric stranding Atrophic left kidney No renal or ureteral calculi, no hydronephrosis Aorta normal size Normal appendix No bowel obstruction 12 mm fat-containing umbilical hernia No diverticulitis Atrophic anteverted uterus Mild free fluid in the pelvis Urinary bladder wall thickening up to 6 mm, no bladder calculi Advanced degenerative disc disease L5-S1 IMPRESSION: No pneumonia pulmonary edema or pleural disease Cirrhosis Mild splenomegaly Prominent perinephric stranding, consider urinary tract infection Urinary bladder wall thickening up to 6 mm, differential would include cystitis
[2024-09-12 16:00] LABS: HCG Qualitative,Urine Negative
--- NOTE | 2024-09-12 18:18 | PC.NURSE ---
Pt refused meds My ride is here and they don't want to wait for me
== END 2024-09-12 18:01 | disposition home or self-care (01) ==
PROVIDERS: Emergency Provider Emergency Medicine
DX: N39.0 Urinary tract infection, site not specified (principal); F15.10 Other stimulant abuse, uncomplicated; I16.1 Hypertensive emergency; F41.9 Anxiety disorder, unspecified; R11.2 Nausea with vomiting, unspecified; F12.920 Cannabis use, unspecified with intoxication, uncomplicated; E11.22 Type 2 diabetes mellitus with diabetic chronic kidney disease; N18.9 Chronic kidney disease, unspecified; I12.9 Hypertensive chronic kidney disease with stage 1 through stage 4 chronic kidney disease, or unspecified chronic kidney disease; R16.1 Splenomegaly, not elsewhere classified; K74.60 Unspecified cirrhosis of liver
CPT/HCPCS: 36415; 71250; 74176; 80053; 81001; 81025; 83690; 83880; 84484; 85025; 85652; 96374; 96375; 99284; J1200; J1630; J2405; J3490; J7120; J1920

== ENCOUNTER 2024-12-11 06:57 | Emergency (ER) | payer MEDICAID, SELFPAY ==
[2024-12-11 07:10] VITALS: BP 105/60; PULSE 95; RESP 18; TEMP 36.7; O2SAT 99; BMI 28.1
--- NOTE | 2024-12-11 08:32 | XR_ITS ---
Examination: AP chest single view TECHNIQUE: AP portable upright chest single view Date and time: December 11, 2024 0836 hours, comparison August 24, 2024 INDICATIONS: Weakness chest pain today. FINDINGS: Poor inspiratory effort Normal heart size Right internal jugular dialysis catheter tip satisfactory position No pneumonia or pulmonary edema IMPRESSION: Poor inspiratory effort chest x-ray
[2024-12-11 10:02] LABS: Base Excess, Venous -3 (-3-3); O2 Saturation, Venous 50 % (96-97); PCO2, Venous 45 mmHg (36-56); PO2, Venous 28 mmHg (15-58); pH, Venous 7.32 (7.33-7.66)
[2024-12-11 10:05] LABS: Basophils # (Auto) 0.0 Thou/mm3 (0.0-0.2); Basophils % (Auto) 0 % (0-2.5); Eosinophils # (Auto) 0.0 Thou/mm3 (0.0-0.5); Eosinophils % (Auto) 0 % (0-10); Hematocrit 35.9 % (36.0-46.0); Hemoglobin 11.7 g/dL (12.0-16.0); Immature Granulocytes Auto 0.04 Thou/mm3 (0.00-0.00); Lymphocytes # (Auto) 0.4 Thou/mm3 (1.0-4.8); Lymphocytes % (Auto) 5 % (10-50); Mean Corpuscular HGB Conc 32.6 g/dl (31.0-37.0); Mean Corpuscular Hemoglobin 27.1 pg (25.0-35.0); Mean Corpuscular Volume 83 fL (80-100); Monocytes # (Auto) 0.3 Thou/mm3 (0.0-0.8); Monocytes % (Auto) 4 % (0-12); Neutrophils # (Auto) 6.2 Thou/mm3 (1.8-7.7); Neutrophils % (Auto) 90 % (37-80); Nucleated Red Blood Cell # 0.00 Thou/mm3 (0.00-0.00); Nucleated Red Blood Cell % 0 /100 WBC (0); Platelet Count 204 Thou/mm3 (140-440); RDW Standard Deviation 44.3 fL (36.4-46.3); Red Blood Count 4.31 Miln/mm3 (4.00-5.20); White Blood Count 7.0 Thou/mm3 (3.6-11.0)
[2024-12-11 10:21] LABS: HCG,Qualitative Serum Negative
[2024-12-11 10:25] LABS: B-Type Natriuretic Peptide 162 pg/mL (0-100)
[2024-12-11 10:28] LABS: Alanine Aminotransferase 23 U/L (10-49); Albumin, Serum 3.7 gm/dL (3.5-5.0); Albumin/Globulin Ratio 1.1 (1.2-2.2); Alkaline Phosphatase 139 U/L (46-116); Anion Gap 13 (7-16); Aspartate Amino Transferase 33 U/L (0-34); BUN/Creatinine Ratio 9 Ratio (12-20); Bilirubin,Total 0.2 mg/dL (0.3-1.2); Blood Urea Nitrogen 33 mg/dL (9-23); Calcium 8.8 mg/dL (8.3-10.6); Calcium (Corrected) 9.0 mg/dL (8.5-10.1); Carbon Dioxide 21.6 mMol/L (20.0-31.0); Chloride 103 mMol/L (98-107); Creatinine (Component) 3.7 mg/dL (0.6-1.3); Estimated Creatinine Clearance 21.8 mL/min (>60); Globulin 3.4 gm/dL (2.3-3.5); Glucose 246 mg/dL (74-106); Osmolality,Calculated 290 (275-295); Potassium 4.7 mMol/L (3.4-5.1); Sodium 138 mMol/L (136-145); Total Protein 7.1 gm/dL (5.7-8.2); Troponin I < 0.020 ng/mL (0.0-0.045); eGFR 15 See Note
--- NOTE | 2024-12-11 11:37 | PD.EDADULT ---
ED General RME/HPI General Chief complaint: General Adult/Misc Complain Stated complaint: ANXIOUS Time Seen by Provider: 12/11/24 07:15 Arrival date/time: 12/11/24 06:57 Limitations: no limitations RME / HPI RME / HPI narrative: Patient is a 44-year-old female with medical history notable for ESRD, follows with Dr. Urias stating that in the emergency department concerns that she has missed dialysis twice. denies f,c,n,v, abp pain, chest pain Related Data Home Medications ?Medication ?Instructions ?Recorded ?Confirmed lisinopril 20 mg tablet 20 mg PO QDAY 07/20/17 05/22/24 quetiapine 25 mg tablet (Seroquel) 25 mg PO TID 07/20/17 05/23/24 docusate sodium 100 mg capsule 100 mg PO BID 05/22/24 05/23/24 Previous Rx's ?Medication ?Instructions ?Recorded metoclopramide HCl 10 mg tablet 10 mg PO BID PRN nausea and 04/01/24 vomiting #30 tabs blood-glucose sensor (FreeStyle #1 ea 05/24/24 Diallo 3 Plus Sensor device) gabapentin 600 mg tablet 200 mg (0.3333 x 600 mg) PO TID 05/25/24 #30 tabs sitagliptin 25 mg tablet 25 mg PO QDAY #90 tabs 05/25/24 ondansetron 4 mg disintegrating 4 mg PO Q8H PRN nausea and 06/11/24 tablet vomiting #10 tabs amlodipine 10 mg tablet 10 mg PO QDAY #30 tabs 09/12/24 hydralazine 25 mg tablet 25 mg PO TID PRN systolic bp above 09/12/24 160 #30 tabs Allergies Allergy/AdvReac Type Severity Reaction Status Date / Time walnut Allergy Severe Swelling Verified 12/11/24 07:02 of Lip/Tongue/Throat Review of Systems Review of Systems Systems Reviewed: All systems reviewed, normal except as documented Past Medical History Past Medical History CARDIAC: Positive Hypertension RESPIRATORY: Positive Asthma and Pneumonia GASTROINTESTINAL: Positive Gastrointestinal Disorders ENDOCRINE: Positive Diabetes Mellitus Type 2 PSYCHO/SOCIAL: Positive Schizophrenia and Anxiety Family History FAMILY HISTORY: Negative Family Cancer Social History SMOKING STATUS: Current some day smoker SUBSTANCE USE: methamphetamine ED Exam General Limitations: Present no limitations General appearance: Present alert and other (Resting in bed, at times is anxious but redirectable ) Head Head exam: Present atraumatic Eye Eye exam: Present normal appearance, PERRL and EOMI ENT ENT exam: Present normal exam, normal oropharynx and mucous membranes moist Neck Neck exam: Present normal inspection, full ROM and trachea midline Chest Chest inspection: Present normal inspection and symmetric chest wall rise Respiratory Respiratory exam: Present normal lung sounds bilaterally Cardiovascular Cardiovascular exam: Present regular rate, normal rhythm and normal heart sounds Abdominal Exam Abdominal exam: Present soft and normal bowel sounds; Absent distention, tenderness or guarding Extremities Exam Extremities exam: Present normal inspection and full ROM Back Exam Back exam: Present normal inspection and full ROM Neurological Exam Neurological exam: Present alert, oriented X3 and CN II-XII intact Psychiatric Psychiatric exam: Present other (Episodes of anxiety though is redirectable ) Skin Skin exam: Present warm, dry, intact and normal color Course Quality Measures none Orders Category Date Time Status CT Screening NOW Care 12/11/24 11:26 Completed CXR [XR chest 1V] Stat Exams 12/11/24 08:32 Completed BNP [B-Type Natriuretic Peptide] Stat Lab 12/11/24 09:55 Completed CBC Stat Lab 12/11/24 09:55 Completed CMP [Comprehensive Metabolic Panel] Stat Lab 12/11/24 09:55 Completed HCG,Qualitative Serum Stat Lab 12/11/24 09:55 Completed Troponin I Stat Lab 12/11/24 09:55 Completed VBG [Venous Blood Gas] Stat Lab 12/11/24 09:55 Completed hydrOXYzine HCL [Atarax] Med 12/11/24 10:06 Discontinued 25 mg PO X1 ONE Vital Signs Vital signs: Vital Signs Temperature 98.0 F 12/11/24 07:10 Pulse Rate 95 12/11/24 07:10 Respiratory Rate 18 12/11/24 07:10 Blood Pressure 105/60 12/11/24 07:10 Pulse Oximetry (%) 99 12/11/24 07:10 Oxygen Delivery Method Room Air 12/11/24 07:10 Pulse ox is 99% on room air which is adequate. Discharge Plan Plan Patient Disposition: Elopement Prescriptions/Referrals Prescriptions/Med Rec: No Action quetiapine [Seroquel] 25 mg Tablet 25 mg PO TID lisinopril 20 mg Tablet 20 mg PO QDAY metoclopramide HCl 10 mg tablet 10 mg PO BID PRN (Reason: nausea and vomiting) Qty: 30 0RF docusate sodium 100 mg capsule 100 mg PO BID Patient Comments: take 1 capsule by mouth twice a day (DME) [employer] Diallo 3 Plus Sensor Device See Rx Instructions .Route Qty: 1 6RF Rx Instructions: As directed gabapentin 600 mg tablet 200 mg PO TID Qty: 30 0RF sitagliptin 25 mg tablet 25 mg PO QDAY Qty: 90 0RF ondansetron 4 mg tablet,disintegrating 4 mg PO Q8H PRN (Reason: nausea and vomiting) Qty: 10 0RF amlodipine 10 mg tablet 10 mg PO QDAY Qty: 30 0RF hydralazine 25 mg tablet 25 mg PO TID PRN (Reason: systolic bp above 160) Qty: 30 0RF Referrals: Adria White PA-C [Primary Care Provider] - In 1 week Problem List Clinical Impression: Acute stress reaction Patient/Caregiver Discharge Instructions Print Language: Sudanese MDM Narrative MDM hospital course (for use when minimal MDM required): Patient is a 44-year-old female with medical history notable for ESRD, follows with Dr. Urias stating that in the emergency department concerns that she has missed dialysis twice. Vital signs and exam as listed. Patient breathing room air she is comfortable, not hypoxic no increased work of breathing. No significant lower extremity swelling. Patient is ambulating without any difficulty. Concern for metabolic derangement. Patient without any chest pain, no shortness of breath less likely ACS arrhythmia electrolyte abnormality. Patient is GCS 15 low concern for acute intracranial pathology. Ordered labs EKG. Patient anxious offered medication for symptom relief Labs without any significant acute hematologic abnormality. Patient VBG pH 7.32, pCO2 is 45 no significant acute electrolyte abnormality, bicarb normal. Glucose 246, not DKA. LFTs without any significant abnormalities. Troponin not elevated. BNP 162. Patient is not . Chest x-ray unremarkable. On reevaluation patient hemodynamically stable not in distress will discharge to home with close return precautions. Patient does not have an emergent indication for dialysis at this time. Advised patient to follow-up with her child abuse worker and request dialysis to be performed soon. 11:42h I spoke with child abuse worker Dr. Contreras. 12:00h Notified by RN the patient eloped. Clinical Information Provided by: patient Medical Records reviewed [facility] Meds/Rx considered, not ordered None Labs/Rad/Tests considered, not ordered None Chronic Illness/Social Conditions which may negatively complicate care or outcome(s)-explain: None or not applicable Labs Labs: see narrative above Imaging Imaging interpretation: see narrative above Medication Administration(s) Medication Administration History Discontinued Medications Hydroxyzine HCl (Hydroxyzine Hcl 25 Mg Tablet) 25 mg PO X1 ONE Stop: 12/11/24 10:07 Last Admin: 12/11/24 10:30 Dose: 25 mg Documented By: EF See above Consultations/Discussions re: Management Consult #1: Date/time: 12/11/24 11:42 am Physician, specialty, service, details: I spoke with child abuse worker Dr. Contreras as noted above. Diagnosis Diagnoses ruled out and/or further discussions: Acute stress reaction
--- NOTE | 2024-12-11 11:45 | PC.NURSE ---
PT WANTING TO LEAVE. INFORMED THAT MD IS WITH A PT RIGHT NOW AND WE WILL HAVE HER SPEAK WITH HER SOON SHE IS DONE. PT WAS THEN SEEN LEAVING THE ER. NURSE AND MD AWARE
== END 2024-12-11 11:50 | disposition left against medical advice (07) ==
LOC: SERX 09:43
PROVIDERS: Emergency Provider Emergency Medicine; PCP Physician Assistant Medical
DX: F43.0 Acute stress reaction (principal); N18.6 End stage renal disease
CPT/HCPCS: 36415; 71045; 80053; 82803; 83880; 84484; 84703; 85025; 99284; A9270

== ENCOUNTER 2025-01-28 08:14 | Emergency (ER) | payer MEDICAID, SELFPAY ==
[2025-01-28 08:24] VITALS: BP 144/86; PULSE 87; RESP 19; TEMP 36.6; O2SAT 99; BMI 31.0
--- NOTE | 2025-01-28 08:26 | EKG_ITS ---
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
--- NOTE | 2025-01-28 08:27 | EDRME_ITS ---
Rapid Medical Screening Exam [facility] Arrival date/time: 01/28/25 08:14 44-year-old female presents to the emergency department today complains of abdominal pain, constipation, nausea and vomiting patient has significant medical problems including diabetes and hypertension Chief Complaint: Nausea/Vomiting/Diarrhea Vital signs: Vital Signs Temperature 97.8 F 01/28/25 08:24 Pulse Rate 87 01/28/25 08:24 Respiratory Rate 19 01/28/25 08:24 Blood Pressure 144/86 H 01/28/25 08:24 Pulse Oximetry (%) 99 01/28/25 08:24 Oxygen Delivery Method Room Air 01/28/25 08:24 Vital signs reviewed by provider: Yes Exam: On exam patient appears to be vomiting patient reports nausea and pain as well as constipation Clinical Impression: Lab work imaging ordered
[2025-01-28] MEDS: ONDANSETRON ODT 4 MG TABRAP PO (08:40)
[2025-01-28 09:03] LABS: Basophils # (Auto) 0.0 Thou/mm3 (0.0-0.2); Basophils % (Auto) 0 % (0-2.5); Eosinophils # (Auto) 0.1 Thou/mm3 (0.0-0.5); Eosinophils % (Auto) 1 % (0-10); Hematocrit 39.5 % (36.0-46.0); Hemoglobin 13.4 g/dL (12.0-16.0); Immature Granulocytes Auto 0.08 Thou/mm3 (0.00-0.00); Lymphocytes # (Auto) 1.2 Thou/mm3 (1.0-4.8); Lymphocytes % (Auto) 14 % (10-50); Mean Corpuscular HGB Conc 33.9 g/dl (31.0-37.0); Mean Corpuscular Hemoglobin 26.9 pg (25.0-35.0); Mean Corpuscular Volume 79 fL (80-100); Monocytes # (Auto) 0.5 Thou/mm3 (0.0-0.8); Monocytes % (Auto) 6 % (0-12); Neutrophils # (Auto) 6.2 Thou/mm3 (1.8-7.7); Neutrophils % (Auto) 78 % (37-80); Nucleated Red Blood Cell # 0.00 Thou/mm3 (0.00-0.00); Nucleated Red Blood Cell % 0 /100 WBC (0); Platelet Count 175 Thou/mm3 (140-440); RDW Standard Deviation 41.3 fL (36.4-46.3); Red Blood Count 4.99 Miln/mm3 (4.00-5.20); White Blood Count 8.0 Thou/mm3 (3.6-11.0)
[2025-01-28 09:16] LABS: Collection Type, Urine Clean Catch
[2025-01-28 09:20] LABS: Alanine Aminotransferase 33 U/L (10-49); Albumin, Serum 4.5 gm/dL (3.5-5.0); Albumin/Globulin Ratio 1.4 (1.2-2.2); Alkaline Phosphatase 180 U/L (46-116); Anion Gap 8 (7-16); Aspartate Amino Transferase 36 U/L (0-34); BUN/Creatinine Ratio 9 Ratio (12-20); Bilirubin,Total 0.3 mg/dL (0.3-1.2); Blood Urea Nitrogen 25 mg/dL (9-23); Calcium 8.6 mg/dL (8.3-10.6); Calcium (Corrected) 8.6 mg/dL (8.5-10.1); Carbon Dioxide 27.6 mMol/L (20.0-31.0); Chloride 97 mMol/L (98-107); Creatinine (Component) 2.8 mg/dL (0.6-1.3); Estimated Creatinine Clearance 30.1 mL/min (>60); Globulin 3.2 gm/dL (2.3-3.5); Glucose 141 mg/dL (74-106); Lipase 128 U/L (12-53); Magnesium 1.6 mg/dL (1.6-2.6); Osmolality,Calculated 272 (275-295); Potassium 4.0 mMol/L (3.4-5.1); Sodium 133 mMol/L (136-145); Total Protein 7.7 gm/dL (5.7-8.2); Troponin I < 0.020 ng/mL (0.0-0.045); eGFR 21 See Note
[2025-01-28 09:21] LABS: HCG,Qualitative Serum Negative
--- NOTE | 2025-01-28 09:24 | PD.EDANX ---
ED Anxiety RME/HPI General Chief Complaint: Anxiety Stated Complaint: ANXIETY, VOMITING AND CONSTIPATED Time Seen by Provider: 01/28/25 09:23 Arrival date/time: 01/28/25 08:14 RME / HPI RME / HPI narrative: 01/28/25 08:14 44-year-old female presents to the emergency department today complains of abdominal pain, constipation, nausea and vomiting patient has significant medical problems including diabetes and hypertension DR. CASTILLO MAIN ED EVALUATION 44 year old female with history of hypertension, ESRD on HD, diabetes, and anxiety presents to the ED for evaluation of anxiety. Reports feeling severely anxious and no coping mechanisms at home have helped. Patient mentioned she was scheduled to have dialysis in [place] today. However, due to feeling severely anxious she did not go. Patient additionally complains of right-sided back pain and constipation. Patient states she was hospitalized at [facility] last night through Monday to get me back to baseline and my anxiety under control . No other associated symptoms reported. Exam: On exam patient appears to be vomiting patient reports nausea and pain as well as constipation Impression: Lab work imaging ordered Related Data Home Medications ?Medication ?Instructions ?Recorded ?Confirmed lisinopril 20 mg tablet 20 mg PO QDAY 07/20/17 05/22/24 quetiapine 25 mg tablet (Seroquel) 25 mg PO TID 07/20/17 05/23/24 docusate sodium 100 mg capsule 100 mg PO BID 05/22/24 05/23/24 Previous Rx's ?Medication ?Instructions ?Recorded metoclopramide HCl 10 mg tablet 10 mg PO BID PRN nausea and 04/01/24 vomiting #30 tabs blood-glucose sensor (FreeStyle #1 ea 05/24/24 Diallo 3 Plus Sensor device) gabapentin 600 mg tablet 200 mg (0.3333 x 600 mg) PO TID 05/25/24 #30 tabs sitagliptin 25 mg tablet 25 mg PO QDAY #90 tabs 05/25/24 ondansetron 4 mg disintegrating 4 mg PO Q8H PRN nausea and 06/11/24 tablet vomiting #10 tabs amlodipine 10 mg tablet 10 mg PO QDAY #30 tabs 09/12/24 hydralazine 25 mg tablet 25 mg PO TID PRN systolic bp above 09/12/24 160 #30 tabs Allergies Allergy/AdvReac Type Severity Reaction Status Date / Time walnut Allergy Severe Swelling Verified 01/28/25 08:19 of Lip/Tongue/Throat adhesive tape Allergy Verified 01/28/25 08:19 cephalexin (From Keflex) Allergy Verified 01/28/25 08:19 Review of Systems Review of Systems Systems Reviewed: All systems reviewed, normal except as documented Past Medical History Past Medical History CARDIAC: Positive Hypertension RESPIRATORY: Positive Asthma and Pneumonia GASTROINTESTINAL: Positive Gastrointestinal Disorders GENITOURINARY: Positive Renal Disease and Dialysis (T-TH-MON) ENDOCRINE: Positive Diabetes Mellitus Type 2 PSYCHO/SOCIAL: Positive Schizophrenia and Anxiety Family History FAMILY HISTORY: Negative Family Cancer Social History SMOKING STATUS: Former smoker SUBSTANCE USE: methamphetamine ED Exam Narrative Physical exam: GENERAL APPEARANCE:? alert and oriented x 4, well-developed, well-nourished, anxious, agitated, mildly combative HEENT: normocephalic, atraumatic NECK: supple LUNGS: no respiratory distress, normal effort HEART: Tachycardic, good peripheral perfusion ABDOMEN: non distended EXTREMITIES:? atraumatic NEUROLOGIC: awake; alert and oriented x4; cranial nerves II-XII grossly intact PSYCHIATRIC:?anxious, agitated, mildly combative SKIN: warm, dry, normal color; no rashes Course Course Course Narrative: 904: Patient arrived very anxious, agitated and mildly combative. Ordered Zofran, Haldol, Ativan, and Benadryl. 1015: Notified by RN the patient eloped. Quality Measures none Orders Category Date Time Status EKG (ED ONLY) *Do not use* NOW Care 01/28/25 08:26 Completed EKG (ED Only) Stat Exams 01/28/25 08:26 Draft CBC Stat Lab 01/28/25 08:39 Completed Comprehensive Metabolic Panel Stat Lab 01/28/25 08:39 Completed Drug Screen,Urine Stat Lab 01/28/25 09:10 Received HCG,Qualitative Serum Stat Lab 01/28/25 08:39 Completed Lipase Stat Lab 01/28/25 08:39 Completed Mag [Magnesium] Stat Lab 01/28/25 08:39 Completed Troponin I Stat Lab 01/28/25 08:39 Completed UA, C/S IF [Urinalysis, C/S if Indicated] Stat Lab 01/28/25 09:10 Received DiphenhydrAMINE INJ [Benadryl Inj] Med 01/28/25 09:09 Discontinued 50 mg IM X1 ONE Haloperidol Lactate [Haldol Inj] Med 01/28/25 09:09 Discontinued 5 mg IM X1 ONE LORazepam [Ativan Inj] Med 01/28/25 09:09 Discontinued 2 mg IM X1 ONE Ondansetron Odt [Zofran Odt] Med 01/28/25 08:26 Discontinued 4 mg PO X1 ONE Vital Signs Vital signs: Vital Signs Temperature 97.8 F 01/28/25 08:24 Pulse Rate 87 01/28/25 08:24 Respiratory Rate 19 01/28/25 08:24 Blood Pressure 144/86 H 01/28/25 08:24 Pulse Oximetry (%) 99 01/28/25 08:24 Oxygen Delivery Method Room Air 01/28/25 08:24 Anxiety MDM Narrative MDM Narrative: Laura Sterling am scribing for and in the presence of Dr. Castillo. Patient data External records reviewed:: [facility] previous records Clinical information provided by:: patient Social determinants that could affect healthcare access:: mental health Patient has the following chronic illnesses:: hypertension, ESRD on HD, diabetes, and anxiety How is presenting disease/condition affected by chronic disease/condition?: exacerbated by Evaluation data The following diagnostics were reviewed and interpreted by me:: lab results and EKG tracing(s) Lab and/or radiology exams considered but not ordered:: None Interpretation Summary: CBC is unremarkable EKG @ 08:33AM. Interpreted by me. Sinus rhythm, rate 86, left axis deviation, no STEMI. Medications / Prescriptions Medications or Prescriptions considered but not ordered:: None Medication administrations:: Medication Administration History Discontinued Medications Diphenhydramine HCl (Diphenhydramine Inj 50 Mg/Ml Vial) 50 mg IM X1 ONE Stop: 01/28/25 09:10 Haloperidol Lactate (Haloperidol Lact Inj 5 Mg/Ml Vial) 5 mg IM X1 ONE Stop: 01/28/25 09:10 Lorazepam (Lorazepam 2 Mg/Ml Vial) 2 mg IM X1 ONE Stop: 01/28/25 09:10 Ondansetron HCl (Ondansetron Odt 4 Mg Tabrap) 4 mg PO X1 ONE; Protocol Stop: 01/28/25 08:27 Last Admin: 01/28/25 08:40 Dose: 4 mg Documented By: [facility] Consultations Consultation(s) initiated? (list below): Yes Diagnosis Differential diagnosis anxiety: hyperventilation, panic disorder and acute anxiety Most likely diagnosis given after review of the tests above:: Anxiety Admission Indicated Admission indicated?: not indicated Explain why admission is indicated or not indicated:: Patient eloped Admission Request Was there a request for admission?: No Disposition Plan Disposition Plan: other (specify) (Patient eloped ) Discharge Plan Plan Patient Disposition: Elopement Prescriptions/Referrals Prescriptions/Med Rec: No Action quetiapine [Seroquel] 25 mg Tablet 25 mg PO TID lisinopril 20 mg Tablet 20 mg PO QDAY metoclopramide HCl 10 mg tablet 10 mg PO BID PRN (Reason: nausea and vomiting) Qty: 30 0RF docusate sodium 100 mg capsule 100 mg PO BID Patient Comments: take 1 capsule by mouth twice a day (DME) [employer] Diallo 3 Plus Sensor Device See Rx Instructions .Route Qty: 1 6RF Rx Instructions: As directed gabapentin 600 mg tablet 200 mg PO TID Qty: 30 0RF sitagliptin 25 mg tablet 25 mg PO QDAY Qty: 90 0RF ondansetron 4 mg tablet,disintegrating 4 mg PO Q8H PRN (Reason: nausea and vomiting) Qty: 10 0RF amlodipine 10 mg tablet 10 mg PO QDAY Qty: 30 0RF hydralazine 25 mg tablet 25 mg PO TID PRN (Reason: systolic bp above 160) Qty: 30 0RF Referrals: Adria White PA-C [Primary Care Provider] - In 1 week Problem List Clinical Impression: Anxiety Patient/Caregiver Discharge Instructions Print Language: Yakut
[2025-01-28] MEDS: LORazepam 2 MG/ML VIAL IM (09:28)
[2025-01-28] MEDS: HALOPERIDOL LACT INJ 5 MG/ML VIAL IM (09:28)
[2025-01-28 09:29] LABS: Bacteria,Urine 2+; Bilirubin,Urine Negative (Negative); Blood,Urine Trace (Negative); Clarity,Urine Turbid (Clear/Hazy); Color,Urine Lt-Yellow (Lt Yel-Yel); Culture Indicated,Urine Contaminated; Glucose, Urine 2+ (Negative); Ketones,Urine Negative (Negative); Leukocyte Esterase,Urine Positive (Negative); Nitrite,Urine Negative (Negative); PH,Urine 7.0 (5.0-7.0); Protein,Urine 3+ (Neg - Trace); RBC,Urine 1 /hpf (0-3); Specific Gravity,Urine 1.010 (1.001-1.035); Squamous Epithelial Cell,Urine 12 /hpf (0-5); Urobilinogen,Urine Negative mg/dL (0.0-1.0); WBC,Urine 21 /hpf (0-5)
[2025-01-28 09:46] LABS: Amphetamine/Methamp Scrn,U Negative (Negative); Barbiturate Screen,Urine Negative (Negative); Benzodiazepines Screen,Urine Positive (Negative); Benzoylecgonine Screen, Ur Negative (Negative); Fentanyl Screen,Urine Negative (Negative); Opiate Screen,Urine Negative (Negative); THC Screen,Urine Positive (Negative)
--- NOTE | 2025-01-28 10:13 | PC.NURSE ---
PT NOT IN ROOM, THE GOWN THAT THE PT WAS WEARING IS ON TOP OF THE BED, NO PT BELONGINGS NOTED IN ROOM. UNABLE TO LOCATED PT AT THIS TIME, DR. CASTILLO MADE AWARE.
--- NOTE | 2025-01-28 10:29 | PC.NURSE ---
I CALLED THIS PT CELL PHONE NUMBER THAT IS ON FILE, AND I ALSO CALLED NEXT OF KIN AND NO ANSWER, I WAS UNABLE TO LEAVE A VOICE MAIL DUE THEIR VOICE MAIL BEING FULL.
== END 2025-01-28 11:27 | disposition left against medical advice (07) ==
PROVIDERS: Nurse Practitioner Primary Care; Emergency Provider Emergency Medicine; PCP Physician Assistant Medical
DX: F41.9 Anxiety disorder, unspecified (principal); K59.00 Constipation, unspecified; R11.2 Nausea with vomiting, unspecified; I12.0 Hypertensive chronic kidney disease with stage 5 chronic kidney disease or end stage renal disease; N18.6 End stage renal disease; E11.22 Type 2 diabetes mellitus with diabetic chronic kidney disease; Z99.2 Dependence on renal dialysis
CPT/HCPCS: 36415; 80053; 80307; 81001; 83690; 83735; 84484; 84703; 85025; 93005; 96372; 99283; J1200; J1630; J2060; Q0162